=== PATIENT | female | born 1955 | race Caucasian/White ===

== ENCOUNTER 2020-10-20 13:57 | Outpatient (REF) | payer MEDICARE, OTHER, SELFPAY ==
[2020-10-23 16:13] LABS: HPV mRNA E6/E7 rflx Not Detected (Not Detected)
== END 2020-10-20 13:58 | disposition home or self-care (01) ==
LOC: HO.LAB 13:57
PROVIDERS: PCP Internal Medicine; Visit Provider Advanced Practice Midwife
DX: Z01.419 Encounter for gynecological examination (general) (routine) without abnormal findings (principal); Z78.0 Asymptomatic menopausal state
CPT/HCPCS: 87624; 87625; 88142

== ENCOUNTER 2021-08-26 13:07 | Outpatient (REF) | payer MEDICARE, OTHER, SELFPAY ==
--- NOTE | ~2021-08-26 | XR_ITS ---
EXAMINATION: XR ABDOMEN COMPLETE CLINICAL INDICATION: Abdominal pain COMPARISON: CT of December 27, 2018 TECHNIQUE: 2 views of the abdomen. FINDINGS: The bowel gas pattern is normal with no evidence of ileus or obstruction. No unusual soft tissue calcifications are noted. The bones are unremarkable. There is elevation of the right hemidiaphragm. No free intra-abdominal gas identified. No pneumatosis intestinalis. XR/XR abdomen min 2V IMPRESSION: No evidence of ileus or obstruction.
== END 2021-08-26 13:08 | disposition home or self-care (01) ==
LOC: HO.HMGCX 13:07
PROVIDERS: PCP Internal Medicine; Visit Provider Physician Assistant Medical
DX: Z13.89 Encounter for screening for other disorder (principal)
CPT/HCPCS: 74019

== ENCOUNTER 2021-08-26 13:42 | Outpatient (REF) | payer MEDICARE, OTHER, SELFPAY | END 2021-08-26 13:43 | disposition home or self-care (01) | LOC: HO.LNP 13:42 | PROVIDERS: Visit Provider Physician Assistant Medical | DX: R10.9 Unspecified abdominal pain (principal); Z87.19 Personal history of other diseases of the digestive system; Z20.822 Contact with and (suspected) exposure to COVID-19 | CPT/HCPCS: 74019; U0003; U0005 ==

== ENCOUNTER 2021-09-04 07:39 | Outpatient (REF) | payer MEDICARE, OTHER, SELFPAY ==
[2021-09-04 11:07] LABS: MANUAL DIFF FLAG NO
[2021-09-04 11:14] LABS: Basophils Percent Auto 0.6 % (0-2); Eosinophils Absolute Auto 0.1 X10*3/uL (0.0-0.4); Eosinophils Percent Auto 1.7 % (0-4); Hematocrit 46.5 % (37-47); Imm Gran Abs Auto 0.02 X10*3/uL (0.00-0.03); Imm Gran Pct Auto 0.3 % (0.0-0.4); Lymphocytes Absolute Auto 2.3 X10*3/uL (1.2-4.9); Lymphocytes Percent Auto 34.5 % (20-40); Mean Corpuscular HGB Conc 32.3 g/dl (31.0-35.0); Mean Corpuscular Hemoglobin 29.4 pg (27.0-33.0); Mean Corpuscular Volume 91.2 fL (80-98); Mean Platelet Volume 10.7 fL (9.4-12.3); Monocytes Absolute Auto 0.4 X10*3/uL (0.1-1.2); Monocytes Percent Auto 6.5 % (2-11); Neutrophils Absolute Auto 3.7 X10*3/uL (2.0-8.3); Neutrophils Percent Auto 56.4 % (45-73); Platelet Count 149 X10*3/uL (160-400); Red Cell Distribution Width 13.8 % (11.0-16.0); White Blood Count 6.6 X10*3/uL (4.8-10.8)
[2021-09-04 11:27] LABS: Alanine Aminotransferase 83 U/L (0-31); Albumin Level 4.6 g/dL (3.5-5.0); Alkaline Phosphatase 93 U/L (39-117); Anion Gap 13 (12-20); Aspartate Amino Transferase 77 U/L (5-31); Bilirubin Total 0.8 mg/dL (0.0-1.0); Blood Urea Nitrogen 13 mg/dL (9-16); Calcium 9.4 mg/dL (8.4-10.2); Carbon Dioxide 30 mmol/L (22-29); Chloride 99 mmol/L (96-108); Cholesterol 193 mg/dL; Estimated Glomerular Filt Rate > 60; Glucose Random 86 mg/dL (60-115); HDL Cholesterol 41 mg/dL; LDL Cholesterol Calculated 125 mg/dl; Potassium 4.2 mmol/L (3.3-5.1); Sodium 138 mmol/L (135-145); Total Protein 8.5 g/dL (6.5-8.0); Triglycerides 138 mg/dL
[2021-09-04 11:39] LABS: Estimated Average Glucose 117 mg/dL; Hemoglobin A1c % 5.7 %
[2021-09-04 11:48] LABS: Free T4 (Free Thyroxine) 1.08 ng/dL (0.71-1.85); Thyroid Stimulating Hormone 1.81 uIU/mL (0.32-4.0); Vitamin D 25-OH Total 39.3 ng/mL (>30)
[2021-09-06 09:14] LABS: Folate 16.5 ng/mL (> or = 4.0); Vitamin B12 544 pg/mL (200-900)
== END 2021-09-04 07:40 | disposition home or self-care (01) ==
LOC: HO.HMGCLDS 07:39
PROVIDERS: PCP Internal Medicine; Visit Provider Internal Medicine
DX: E03.9 Hypothyroidism, unspecified (principal); I10 Essential (primary) hypertension; R73.02 Impaired glucose tolerance (oral); E78.00 Pure hypercholesterolemia, unspecified
CPT/HCPCS: 36415; 80053; 80061; 82306; 82607; 82746; 83036; 84439; 84443; 85025

== ENCOUNTER 2022-03-03 07:36 | Outpatient (REF) | payer MEDICARE, OTHER, SELFPAY ==
[2022-03-03 11:15] LABS: MANUAL DIFF FLAG NO
[2022-03-03 11:30] LABS: Basophils Percent Auto 0.7 % (0-2); Eosinophils Absolute Auto 0.1 X10*3/uL (0.0-0.4); Eosinophils Percent Auto 1.8 % (0-4); Hematocrit 47.1 % (37.0-47.0); Hemoglobin 15.2 g/dl (12.0-16.0); Imm Gran Abs Auto 0.02 X10*3/uL (0.00-0.03); Imm Gran Pct Auto 0.3 % (0.0-0.4); Lymphocytes Absolute Auto 2.3 X10*3/uL (1.2-4.9); Lymphocytes Percent Auto 37.6 % (20-40); Mean Corpuscular HGB Conc 32.3 g/dl (31.0-35.0); Mean Corpuscular Hemoglobin 29.7 pg (27.0-33.0); Monocytes Absolute Auto 0.4 X10*3/uL (0.1-1.2); Neutrophils Absolute Auto 3.3 x10*3/uL (2.0-8.3); Neutrophils Percent Auto 53.6 % (45-73); Platelet Count 238 X10*3/uL (160-400); Red Blood Count 5.12 X10*6/uL (4.20-5.50); Red Cell Distribution Width 13.5 % (11.0-16.0); White Blood Count 6.1 X10*3/uL (4.8-10.8)
[2022-03-03 11:37] LABS: Alanine Aminotransferase 87 U/L (0-31); Albumin Level 4.4 g/dL (3.5-5.0); Alkaline Phosphatase 91 U/L (39-117); Anion Gap 14 (12-20); Aspartate Amino Transferase 83 U/L (5-31); Bilirubin Total 0.8 mg/dL (0.0-1.0); Blood Urea Nitrogen 13 mg/dL (9-16); Calcium 10.1 mg/dL (8.4-10.2); Carbon Dioxide 30 mmol/L (22-29); Chloride 101 mmol/L (96-108); Cholesterol 204 mg/dL; Estimated Glomerular Filt Rate > 60; Glucose Random 96 mg/dL (60-115); HDL Cholesterol 41 mg/dL; LDL Cholesterol Calculated 133 mg/dl; Potassium 4.5 mmol/L (3.3-5.1); Sodium 140 mmol/L (135-145); Total Protein 8.5 g/dL (6.5-8.0); Triglycerides 151 mg/dL
[2022-03-03 11:55] LABS: Estimated Average Glucose 117 mg/dL; Hemoglobin A1c % 5.7 %
[2022-03-03 12:01] LABS: Thyroid Stimulating Hormone 1.16 uIU/mL (0.32-4.0); Vitamin D 25-OH Total 37.8 ng/mL (>30)
[2022-03-03 12:06] LABS: Folate 17.9 ng/mL (> or = 4.0); Vitamin B12 564 pg/mL (200-900)
== END 2022-03-03 07:37 | disposition home or self-care (01) ==
LOC: HO.HMGCLDS 07:36
PROVIDERS: Visit Provider Internal Medicine
DX: R73.02 Impaired glucose tolerance (oral) (principal); E78.00 Pure hypercholesterolemia, unspecified
CPT/HCPCS: 36415; 80053; 80061; 82306; 82607; 82746; 83036; 84439; 84443; 85025

== ENCOUNTER 2022-06-15 10:46 | Emergency (ER) | payer MEDICARE, OTHER, SELFPAY ==
--- NOTE | ~2022-06-15 | CT_ITS ---
EXAMINATION: CT ABDOMEN AND PELVIS WITHOUT CONTRAST CLINICAL INFORMATION: Left lower quadrant abdominal pain COMPARISON: CT abdomen pelvis 12/27/2018 TECHNIQUE: Multidetector volumetric imaging was performed from the superior aspect of the liver through the pubic symphysis. Sagittal and coronal reformatted images were obtained on the technologist's workstation. This CT examination was performed using dose optimization techniques as appropriate, variously including the following: *Automated exposure control *Adjustment of mA and/or kV according to patient size (this includes techniques or standardized protocols for targeted exams where dose is matched to indication/reason for exam; i.e. extremities or head) *Use of iterative reconstruction technique DLP: 791 mGy-cm FINDINGS: LUNG BASES: The visualized lung bases are unremarkable. Small right anterior preparacardiac lymph nodes are seen. LIVER, GALLBLADDER, AND BILIARY TREE: The liver is normal in size and shape but demonstrates significantly decreased attenuation consistent with hepatic steatosis.. No focal hepatic lesion or biliary ductal dilatation is present. The gallbladder is unremarkable with no evidence of radiopaque gallstones, gallbladder wall thickening, or obvious pericholecystic inflammatory changes. PANCREAS: Unremarkable. SPLEEN: Unremarkable. ADRENAL GLANDS: Unremarkable. KIDNEYS AND URETERS: The kidneys are normal in size, shape, and attenuation. No hydronephrosis, hydroureter, or calculi seen. No perinephric stranding. BLADDER: Unremarkable. GASTROINTESTINAL TRACT: The small and large bowel are unremarkable aside from colonic diverticulosis without diverticulitis. The appendix is short and unremarkable. ABDOMINAL WALL: No significant hernia is appreciated. There is minimal diastases of the rectus muscles just above the umbilicus. LYMPH NODES: No retroperitoneal lymphadenopathy. VASCULAR: Unremarkable. PELVIC VISCERA: Unremarkable. OSSEOUS STRUCTURES: Degenerative changes are present at L5-S1. CT/CT abdomen pelvis wo con IMPRESSION: 1. Hepatic steatosis. 2. Degenerative changes L5-S1 3. Colonic diverticulosis without diverticulitis 4. A cause for the patient's left lower quadrant pain has not been found. Fleischner guidelines were followed.
[2022-06-15 11:51] VITALS: BP 191/99; PULSE 79; RESP 16; TEMP 36.8; O2SAT 97; BMI 37.3
[2022-06-15 12:08] LABS: MANUAL DIFF FLAG NO
[2022-06-15 12:12] LABS: Basophils Percent Auto 0.6 % (0-2); Eosinophils Absolute Auto 0.1 X10*3/uL (0.0-0.4); Eosinophils Percent Auto 1.4 % (0-4); Hematocrit 43.9 % (37.0-47.0); Hemoglobin 14.6 g/dl (12.0-16.0); Imm Gran Abs Auto 0.04 X10*3/uL (0.00-0.03); Imm Gran Pct Auto 0.6 % (0.0-0.4); Lymphocytes Absolute Auto 2.2 X10*3/uL (1.2-4.9); Lymphocytes Percent Auto 34.9 % (20-40); Mean Corpuscular HGB Conc 33.3 g/dl (31.0-35.0); Mean Corpuscular Hemoglobin 30.2 pg (27.0-33.0); Mean Corpuscular Volume 90.9 fL (80.0-98.0); Mean Platelet Volume 9.3 fL (9.4-12.3); Monocytes Absolute Auto 0.5 X10*3/uL (0.1-1.2); Monocytes Percent Auto 7.7 % (2-11); Neutrophils Absolute Auto 3.4 x10*3/uL (2.0-8.3); Neutrophils Percent Auto 54.8 % (45-73); Platelet Count 248 X10*3/uL (160-400); Red Blood Count 4.83 X10*6/uL (4.20-5.50); Red Cell Distribution Width 13.4 % (11.0-16.0); White Blood Count 6.3 X10*3/uL (4.8-10.8)
[2022-06-15 13:50] LABS: Anion Gap 15 (12-20); Blood Urea Nitrogen 10 mg/dL (9-16); Calcium 9.6 mg/dL (8.4-10.2); Carbon Dioxide 25 mmol/L (22-29); Chloride 106 mmol/L (96-108); Creatinine Clr Calc Pharmacy 86.7; Estimated Glomerular Filt Rate > 60; Glucose Random 86 mg/dL (60-115); Potassium 4.3 mmol/L (3.3-5.1); Sodium 142 mmol/L (135-145)
--- NOTE | 2022-06-15 16:38 | ED_ITS ---
HPI - Abdominal Pain General Chief Complaint: Abdominal Pain Stated Complaint: abd pain L side Source: patient Mode of arrival: ambulatory Limitations: no limitations History of Present Illness HPI narrative: 66-year-old female presents with 5 days of left lower quadrant abdominal cramping, change in bowel habits, bloating, belching, intermittent fevers, with an episode of nausea and vomiting. Has a history of diverticulosis and feels that this could be diverticulitis. She has had similar presentations in the past. At this time she does not report fevers or chills, nausea vomiting, abdominal distention, dysuria, hematuria, weakness, lightheadedness, chest pain or pressure, or palpitations. She was evaluated at urgent care earlier today and was referred to the emergency department for suspicion of diverticulitis. MD elicited complaint: abdominal pain Pertinent past history: diverticulitis Onset (ago): day(s) (5) Pain Consistency: constant Location: LLQ and suprapubic Severity: moderate Pain scale (0-10): 6 Quality: cramping and aching Radiation: none Migration to: no migration Exacerbating factors: bowel movement and movement Relieving factors: nothing Context: history of similar episodes Related Data Home Medications Medication Instructions Recorded Confirmed multivitamin,[id number] 1 tab PO DAILY 10/20/20 09/09/21 (Complete Multivitamin tablet) Previous Rx's Medication Instructions Recorded ezetimibe 10 mg tablet 10 mg PO DAILY #90 tabs 08/02/21 levothyroxine 150 mcg tablet 150 mcg PO QAM 90 days #90 tabs 09/20/21 Allergies Allergy/AdvReac Type Severity Reaction Status Date / Time rofecoxib [From VIOXX] Allergy Severe ANAPHYLAXIS Verified 06/15/22 11:50 latex [LATEX] Allergy Mild RASH;ITCHIN Verified 06/15/22 10:04 G acetaminophen Allergy Unknown hives Verified 06/15/22 10:04 [Tylenol-Codeine] codeine [Tylenol-Codeine] Allergy Unknown hives Verified 06/15/22 10:04 ciprofloxacin [From Cipro] AdvReac Intermediate diarrhea Verified 06/15/22 10:04 cyclobenzaprine AdvReac Intermediate TACYCARDIA Verified 06/15/22 10:04 [From FLEXERIL] atorvastatin AdvReac Unknown body aches Verified 06/15/22 10:04 prednisone AdvReac Unknown shaking Verified 06/15/22 10:04 aerosol Allergy Unknown Sneezing, Uncoded 06/15/22 10:04 difficulty breathing Vicodin Allergy Unknown heart Uncoded 06/15/22 10:04 racing Review of Systems Review of Systems Constitutional: No Fever, No Chills ENT/Mouth: No Ear Pain, No Hoarseness, No sore throat Eyes: No Eye Pain, No Swelling, No Redness, No Foreign Body Cardiovascular: No Chest Pain, No SOB Respiratory: No Cough, No Dyspnea Gastrointestinal: Positive Nausea, positive Vomiting, No Diarrhea, positive abdominal Pain Genitourinary: No Dysuria, No Hematuria Musculoskeletal: No joint pain, No Myalgias, No Joint Swelling Skin: No Skin lacerations, No rash Neuro: No Weakness, No Numbness, No Paresthesias, No Loss of Consciousness, No Dizziness, No Headache Psych: No Anxiety/Panic, No Depression Heme/Lymph: no easy bruising, no Lymphadenopathy Endocrine: No Polyuria, No Polydipsia Yes all other systems are reviewed and are negative PMFSH Past Medical History Attestation statement: The following information was validated with the patient. Source: old records reviewed Medical History Adjustment disorder Asthma Fatty liver Fracture of phalanx of index finger Hx of diverticulitis of colon Hypercholesterolemia Hyperlipidemia Hypertension Hypothyroidism Impaired glucose tolerance SCRUGGS (nonalcoholic steatohepatitis) Obesity (BMI 30-39.9) Psoriasis Trigger finger Vitamin D deficiency Surgical History H/O knee surgery H/O rhinoplasty History of appendectomy Hx of tubal ligation Tear of meniscus of left knee Family History Family History Father Kidney failure Mother Bladder cancer Social History Social History Housing: House Alcohol intake: never Patient Tobacco Use Status: Former Tobacco user Tobacco use type: Cigarette Years Smoked: quit 1992 Smoked in Last 30 Days: No e-Cigarette/Vaping Use: Never Used Second Hand Smoke Exposure: No Use of substances other than those prescribed or required for medical reasons: No Advance Directives: No Advance Directives Information Provided: No service: No Current occupational status: retired Cognitive needs: No Hearing needs: No Vision needs: Yes Physical Exam ED Vital Signs: Vital Signs - 24 hr 06/15/22 11:51 06/15/22 16:56 06/15/22 19:18 Temperature 98.2 F 97.8 F 97.9 F Pulse Rate 79 70 68 Respiratory Rate 16 18 16 Blood Pressure 191/99 H 180/77 H 162/77 H Pulse Oximetry 97 97 98 Oxygen Delivery Method Room Air Room Air Room Air BMI result Body Mass Index 37.3 Appearance: Alert. Oriented X3. No acute distress. Eyes: Pupils equal, round and reactive to light. ENT: Pharynx normal. Neck: Normal inspection. Neck supple. CVS: Normal heart rate and rhythm. Pulses normal. Respiratory: No respiratory distress. Breath sounds normal. Abdomen: Soft and left lower quadrant and suprapubic abdominal pain on palpation. No CVA tenderness. No rigidity or distention, negative Cerrato, McBurney, and Rovsing. Skin: Skin warm and dry. Normal skin color. Normal skin turgor. Extremities: No lower extremity edema. Gait well-balanced well coordinated. Neuro: No motor deficit. No sensory deficit. Cranial nerves 2-12 intact Course Course Course Narrative: 66-year-old female presents for evaluation of left lower quadrant abdominal pain for approximately 5 days. She has had an episode of nausea and vomiting and subjective fever. She has not had fever, nausea or vomiting today but the pain is persistent and accompanied with cramping, burping, and a feeling of fullness. She states that she can not get comfortable or sleep. She has had a history of diverticulitis in the past and states that this feels similar to prior presentation. She is ambulatory with a limp because of the left lower quadrant abdominal pain. She has been in the emergency department waiting room since 09:00 this morning, labs were drawn and are unremarkable. Based on patient's physical exam with left lower quadrant and suprapubic tenderness, will order CT scan of abdomen pelvis. Patient agrees to this plan. CT scan of abdomen pelvis negative for acute findings. Will have patient follow-up with her primary care physician. Patient verbalized understanding of and agrees plan of care discharge home. Patient verbalized understanding of signs symptoms indicating need for emergent intervention. MDM - Abdominal Pain Differential Diagnosis Differential diagnosis: Likely abdominal pain, calculus of kidney, constipation and diverticulitis Medical Records Attestation: I reviewed the patient's medical records. Lab Data Attestation: I reviewed the patient's lab results. Result diagrams: 06/15/22 12:01 06/15/22 12:01 Labs: Lab Results 06/15/22 06/15/22 Range/Units 12: 12:01 WBC 6.3 (4.8-10.8) X10*3/uL RBC 4.83 (4.20-5.50) X10*6/uL Hgb 14.6 (12.0-16.0) g/dl Hct 43.9 (37.0-47.0) % MCV 90.9 (80.0-98.0) fL MCH 30.2 (27.0-33.0) pg MCHC 33.3 (31.0-35.0) g/dl RDW 13.4 (11.0-16.0) % Plt Count 248 (160-400) X10*3/uL MPV 9.3 L (9.4-12.3) fL Immature Gran % (Auto) 0.6 H (0.0-0.4) % Neut % (Auto) 54.8 (45-73) % Lymph % (Auto) 34.9 (20-40) % [place] % (Auto) 7.7 (2-11) % Eos % (Auto) 1.4 (0-4) % Baso % (Auto) 0.6 (0-2) % Lymph # (Auto) 2.2 (1.2-4.9) X10*3/uL [place] # (Auto) 0.5 (0.1-1.2) X10*3/uL Eos # (Auto) 0.1 (0.0-0.4) X10*3/uL Baso # (Auto) 0.0 (0.0-0.2) X10*3/uL Abs Immat Gran (auto) 0.04 H (0.00-0.03) X10*3/uL Absolute Neuts (auto) 3.4 (2.0-8.3) x10*3/uL Absolute Nucleated RBC 0.000 (0.0-0.012) X10*3/uL Nucleated RBC % (auto) 0.0 (0.0-0.2) /100WBC Sodium 142 (135-145) mmol/L Potassium 4.3 (3.3-5.1) mmol/L Chloride 106 (96-108) mmol/L Carbon Dioxide 25 (22-29) mmol/L Anion Gap 15 (12-20) BUN 10 (9-16) mg/dL Creatinine 0.77 (0.5-1.4) mg/dL Estim Creat Clear Calc 86.7 Estimated GFR > 60 Random Glucose 86 (60-115) mg/dL Calcium 9.6 (8.4-10.2) mg/dL Imaging Data CT abdomen pelvis: Attestation: I personally reviewed and interpreted this imaging study as follows: Radiologist's impression: EXAMINATION: CT ABDOMEN AND PELVIS WITHOUT CONTRAST? CLINICAL INFORMATION: Left lower quadrant abdominal pain? COMPARISON: CT abdomen pelvis 12/27/2018? TECHNIQUE: Multidetector volumetric imaging was performed from the superior aspect of the liver through the pubic symphysis. Sagittal and coronal reformatted images were obtained on the technologist's workstation.? This CT examination was performed using dose optimization techniques as appropriate, variously including the following: *Automated exposure control *Adjustment of mA and/or kV according to patient size (this includes techniques or standardized protocols for targeted exams where dose is matched to indication/reason for exam; i.e. extremities or head) *Use of iterative reconstruction technique DLP: 791 mGy-cm FINDINGS: LUNG BASES: The visualized lung bases are unremarkable. Small right anterior preparacardiac lymph nodes are seen. LIVER, GALLBLADDER, AND BILIARY TREE: The liver is normal in size and shape but demonstrates significantly decreased attenuation consistent with hepatic steatosis.. No focal hepatic lesion or biliary ductal dilatation is present. The gallbladder is unremarkable with no evidence of radiopaque gallstones, gallbladder wall thickening, or obvious pericholecystic inflammatory changes.? PANCREAS: Unremarkable.? SPLEEN: Unremarkable.? ADRENAL GLANDS: Unremarkable.? KIDNEYS AND URETERS: The kidneys are normal in size, shape, and attenuation. No hydronephrosis, hydroureter, or calculi seen. No perinephric stranding. ? BLADDER: Unremarkable.? GASTROINTESTINAL TRACT: The small and large bowel are unremarkable aside from colonic diverticulosis without diverticulitis. The appendix is short and unremarkable.? ABDOMINAL WALL: No significant hernia is appreciated. There is minimal diastases of the rectus muscles just above the umbilicus. LYMPH NODES: No retroperitoneal lymphadenopathy. VASCULAR: Unremarkable. PELVIC VISCERA: Unremarkable.? OSSEOUS STRUCTURES: Degenerative changes are present at L5-S1.? CT/CT abdomen pelvis wo con IMPRESSION: 1.? Hepatic steatosis. 2.? Degenerative changes L5-S1 3.? Colonic diverticulosis without diverticulitis 4.? A cause for the patient's left lower quadrant pain has not been found. ? Fleischner guidelines were followed Discharge Plan Discharge Clinical Impression: Diverticulosis of colon without diverticulitis, Abdominal pain Patient Disposition: Home, Self-Care Instructions: Diverticulosis (ED) Additional Instructions: You were evaluated for abdominal pain to the left lower quadrant and change in bowel habits. Lab values are within normal limits. CT scan of abdomen and pelvis indicates diverticulosis without indication of infection or perforation. Please follow-up with Gastroenterology. I have referred you to Dr. Carrera. Please call and request an appointment for evaluation. You may require colonoscopy if indicated. For suspected constipation, please take MiraLax on a daily basis. MiraLax can be purchased [id number]. Please follow-up with primary care physician for further evaluation. Drink plenty of fluids. Thank you for choosing this emergency department for evaluation. Please follow-up with primary care physician as needed. Return to the emergency depart ment for any new, concerning, or worsening symptoms. Prescriptions: No Action ezetimibe 10 mg tablet 10 mg PO DAILY Qty: 90 2RF levothyroxine 150 mcg tablet 150 mcg PO QAM 90 Days Qty: 90 2RF Complete Multivitamin Tablet 1 tab PO DAILY Referrals: Jose Carrera [Physician] - 2 weeks (Diverticulosis with history of diverticulitis, change in bowel habits.) Interventions: ED Discharge Assessment Last Done: 06/15/22 19:37 Discharge Date/Time: 06/15/22 19:38
[2022-06-15 16:56] VITALS: BP 180/77; PULSE 70; RESP 18; TEMP 36.6; O2SAT 97
--- NOTE | 2022-06-15 16:58 | PC.NURSE ---
pt a&ox3, vss, pt reports lower abd pain for ~6 days, took a laxative for constipation, abd pain resolved after bowel movement, vomited last night, abd pain returned. pending CT scan results.
[2022-06-15 19:18] VITALS: BP 162/77; PULSE 68; RESP 16; TEMP 36.6; O2SAT 98
== END 2022-06-15 19:38 | disposition home or self-care (01) ==
PROVIDERS: Emergency Provider Internal Medicine; PCP Internal Medicine
DX: K57.30 Diverticulosis of large intestine without perforation or abscess without bleeding (principal); R10.30 Lower abdominal pain, unspecified; Z87.891 Personal history of nicotine dependence; Z79.899 Other long term (current) drug therapy
CPT/HCPCS: 36415; 74176; 80048; 85025; 99284

== ENCOUNTER 2022-09-08 07:03 | Outpatient (REF) | payer MEDICARE, OTHER, SELFPAY ==
[2022-09-08 07:10] LABS: MANUAL DIFF FLAG NO
[2022-09-08 07:24] LABS: Basophils Absolute Auto 0.1 X10*3/uL (0.0-0.2); Basophils Percent Auto 0.9 % (0-2); Eosinophils Absolute Auto 0.1 X10*3/uL (0.0-0.4); Eosinophils Percent Auto 1.9 % (0-4); Hematocrit 44.5 % (37.0-47.0); Hemoglobin 14.5 g/dl (12.0-16.0); Imm Gran Abs Auto 0.02 X10*3/uL (0.00-0.03); Imm Gran Pct Auto 0.3 % (0.0-0.4); Lymphocytes Absolute Auto 2.1 X10*3/uL (1.2-4.9); Lymphocytes Percent Auto 35.8 % (20-40); Mean Corpuscular HGB Conc 32.6 g/dl (31.0-35.0); Mean Corpuscular Hemoglobin 29.8 pg (27.0-33.0); Mean Corpuscular Volume 91.4 fL (80.0-98.0); Mean Platelet Volume 9.3 fL (9.4-12.3); Monocytes Absolute Auto 0.5 X10*3/uL (0.1-1.2); Monocytes Percent Auto 8.5 % (2-11); Neutrophils Percent Auto 52.6 % (45-73); Platelet Count 231 X10*3/uL (160-400); Red Blood Count 4.87 X10*6/uL (4.20-5.50); Red Cell Distribution Width 13.2 % (11.0-16.0); White Blood Count 5.8 X10*3/uL (4.8-10.8)
[2022-09-08 07:33] LABS: Appearance Urine Clear; Color Urine Yellow; Glucose Urine UA Negative (Negative); Leukocyte Esterase Urine Moderate (2+) (Negative); Nitrite Urine Negative (Negative); PH 6.5 (5.0-9.0); UMIC TRIGGER UA YES; Urine Blood Negative (Negative); Urine Ketones Negative (Negative); Urine Protein Negative (Neg-Trace)
[2022-09-08 07:38] LABS: Bacteria Urine None Seen (None Seen); Hyaline Casts Urine 0-2 /LPF (0-2); RBC Urine 0-2 /HPF (0-2)
[2022-09-08 07:42] LABS: Estimated Average Glucose 114 mg/dL; Hemoglobin A1c % 5.6 %
[2022-09-08 07:54] LABS: Alanine Aminotransferase 71 U/L (0-31); Albumin Level 4.5 g/dL (3.5-5.0); Alkaline Phosphatase 94 U/L (39-117); Anion Gap 16 (12-20); Aspartate Amino Transferase 65 U/L (5-31); Bilirubin Total 0.6 mg/dL (0.0-1.0); Blood Urea Nitrogen 11 mg/dL (9-16); Calcium 9.8 mg/dL (8.4-10.2); Carbon Dioxide 30 mmol/L (22-29); Chloride 103 mmol/L (96-108); Cholesterol 207 mg/dL; Estimated Glomerular Filt Rate > 60; Glucose Random 103 mg/dL (60-115); HDL Cholesterol 36 mg/dL; LDL Cholesterol Calculated 142 mg/dl; Potassium 4.6 mmol/L (3.3-5.1); Sodium 144 mmol/L (135-145); Total Protein 7.9 g/dL (6.5-8.0); Triglycerides 146 mg/dL
[2022-09-08 08:14] LABS: Thyroid Stimulating Hormone 0.44 uIU/mL (0.32-4.0); Vitamin D 25-OH Total 37.8 ng/mL (>30)
[2022-09-08 08:25] LABS: Folate 15.4 ng/mL (> or = 4.0); Vitamin B12 530 pg/mL (200-900)
== END 2022-09-08 07:04 | disposition home or self-care (01) ==
LOC: HO.LAB 07:03
PROVIDERS: PCP Internal Medicine; Visit Provider Internal Medicine
DX: E78.00 Pure hypercholesterolemia, unspecified (principal); R73.02 Impaired glucose tolerance (oral)
CPT/HCPCS: 36415; 80053; 80061; 81001; 82306; 82607; 82746; 83036; 84439; 84443; 85025

== ENCOUNTER 2022-09-12 13:24 | Emergency (ER) | payer MEDICARE, OTHER, SELFPAY ==
[2022-09-12 13:40] VITALS: BP 175/85; PULSE 91; RESP 18; TEMP 36.6; O2SAT 98; BMI 37.4
--- NOTE | 2022-09-12 17:18 | ED_ITS ---
HPI - General Adult General Chief complaint: General Medical Stated complaint: Bit by tick/needs it removed Time Seen by Provider: 09/12/22 17:17 Source: patient Mode of arrival: ambulatory Limitations: no limitations History of Present Illness HPI narrative: Patient is a 66 year old assigned female at with a history of HTN presenting to the emergency department today with a tick bite. Patient states that she found a tick on the right side of her back and her partner removed it this evening. Patient states she does not know how long it was there. Patient denies any dizziness, lightheadedness, abdominal pain, nausea, vomiting, fever, chills, blurry vision, double vision, loss of vision, chest pain, difficulty breathing, shortness of breath, back pain, night sweats, pain with urination, in creased urinary frequency, increased urinary urgency, blood in her urine or stool, syncope or a near syncopal episode, recent trauma or falls, bowel incontinence, bladder incontinence, bowel retention, bladder retention, or any other complaints at this time. Onset (ago): unknown Severity: mild Severity scale (1-10): 3 Quality: dull Pain Consistency: constant Relieving factors: none Exacerbating factors: none Associated symptoms: denies other symptoms Treatments prior to arrival: none Related Data Home Medications Medication Instructions Recorded Confirmed multivitamin,[id number] 1 tab PO DAILY 10/20/20 09/09/21 (Complete Multivitamin tablet) Previous Rx's Medication Instructions Recorded ezetimibe 10 mg tablet 10 mg PO DAILY #90 tabs 06/20/22 levothyroxine 150 mcg tablet 150 mcg PO QAM 90 days #90 tabs 06/20/22 doxycycline hyclate 100 mg tablet 100 mg PO BID 21 days #42 tabs 09/12/22 Allergies Allergy/AdvReac Type Severity Reaction Status Date / Time rofecoxib [From VIOXX] Allergy Severe ANAPHYLAXIS Verified 06/15/22 11:50 latex [LATEX] Allergy Mild RASH;ITCHIN Verified 06/15/22 10:04 G acetaminophen Allergy Unknown hives Verified 06/15/22 10:04 [Tylenol-Codeine] codeine [Tylenol-Codeine] Allergy Unknown hives Verified 06/15/22 10:04 ciprofloxacin [From Cipro] AdvReac Intermediate diarrhea Verified 06/15/22 10:04 cyclobenzaprine AdvReac Intermediate TACYCARDIA Verified 06/15/22 10:04 [From FLEXERIL] atorvastatin AdvReac Unknown body aches Verified 06/15/22 10:04 prednisone AdvReac Unknown shaking Verified 06/15/22 10:04 aerosol Allergy Unknown Sneezing, Uncoded 06/15/22 10:04 difficulty breathing Vicodin Allergy Unknown heart Uncoded 06/15/22 10:04 racing Review of Systems Constitutional: Constitutional: Reports no additional constitutional complaints, Denies chills, Denies fever(s) and Denies night sweats Eyes: Eyes: Reports no additional eye complaints, Denies blurry vision, Denies change in vision, Denies diplopia, Denies eye discharge, Denies loss of vision and Denies eye pain ENT: Denies dizziness Cardiovascular: Cardiovascular: Reports no additional cardiovascular complaints, Denies chest pain, Denies lightheadedness, Denies Loss of Consciousness and Denies dyspnea Respiratory: Respiratory: Reports no additional respiratory complaints and Denies dyspnea Gastrointestinal: Gastrointestinal: Reports no additional gastrointestinal complaints, Denies abdominal pain, Denies melena, Denies hematochezia, Denies change in bowel habits and Denies change in stool character Genitourinary: Genitourinary: Denies hematuria, Denies urinary frequency, Denies dysuria, Denies urinary incontinence, Denies urinary hesitancy and Denies urinary urgency Musculoskeletal: Musculoskeletal: Reports no additional musculoskeletal complaints, Denies numbness and Denies tingling Integumentary/Breasts: Comments: tick bite to right side Neurologic: Denies dizziness, Denies loss of vision, Denies numbness and Denies tingling Psychiatric: Psychiatric: Reports no additional psychiatric complaints Endocrine: Endocrine: Reports no additional endocrine complaints Hematologic/Lymphatic: Hematologic/Lymphatic: Reports no additional hematologic/lymphatic complaints Allergic/Immunologic: Allergic/Immunologic: Reports no additional allergic/immunologic complaints [facility] Past Medical History Attestation statement: The following information was validated with the patient. Source: old records reviewed Medical History Adjustment disorder Asthma Fatty liver Fracture of phalanx of index finger Hx of diverticulitis of colon Hypercholesterolemia Hyperlipidemia Hypertension Hypothyroidism Impaired glucose tolerance SCRUGGS (nonalcoholic steatohepatitis) Obesity (BMI 30-39.9) Psoriasis Trigger finger Vitamin D deficiency Surgical History H/O knee surgery H/O rhinoplasty History of appendectomy Hx of tubal ligation Tear of meniscus of left knee Family History Family History Father Kidney failure Mother Bladder cancer Social History Social History Housing: House Alcohol intake: never Patient Tobacco Use Status: Former Tobacco user Tobacco use type: Cigarette Years Smoked: quit 1991 e-Cigarette/Vaping Use: Never Used Second Hand Smoke Exposure: No Advance Directives: No Advance Directives Information Provided: No service: No Current occupational status: retired Cognitive needs: No Hearing needs: No Vision needs: Yes Physical Exam ED Vital Signs: Vital Signs - 24 hr 09/12/22 13:40 Temperature 98 F Pulse Rate 91 Respiratory Rate 18 Blood Pressure 175/85 H Pulse Oximetry 98 Oxygen Delivery Method Room Air BMI result Body Mass Index 37.4 Const General: cooperative, no acute distress, alert and awake Nutritional Appearance: well nourished Orientation/consciousness: patient oriented x3 Limitations: no limitations HENMT Head: Yes normal to inspection and Yes atraumatic Ears: hearing grossly normal bilaterally and external ears normal General nose exam: Normal external nose present, no nasal discharge noted and no epistaxis Face and sinus: Yes normal facial exam, No abrasion and No laceration Mouth: Normal oral and palatal mucosa present, no drooling and no muffled voice Eyes General: appearance normal, both eyes and all related structures Periorbital: periorbital findings normal Eyelids: Yes eyelids normal Conjunctivae: conjunctivae normal Pupils: Equal, round and reactive pupils present EOM: EOMs intact bilaterally Neck Neck: Yes normal visual inspection, Yes full ROM and Yes no lymphadenopathy Chest Chest palpation & inspection: normal inspection of the chest Resp Effort & Inspection: normal respiratory effort and able to speak in complete sentences Auscultation: clear to auscultation bilaterally Cardio Rate: regular rate Rhythm: regular rhythm GI Inspection: Yes normal to inspection Skin Other: target type lesion to the right flank, no retained tick, no active bleeding Neuro General: patient oriented x3 and moves all extremities Cranial nerves: Yes Equal, round and reactive pupils present Cognition (Neuro): normal cognition Motor exam (neuro): 5/5 motor strength present throughout Sensory Exam: Normal double simultaneous stimulation for sensation Coordination: [id number] test normal Extrem General: Yes normal to inspection, Yes full ROM and Yes capillary refill normal Psych Appearance: grossly normal Mental Status: mental status grossly normal Affect: normal affect Attitude: cooperative Thought process: Normal thought process present Thought content: Normal thought content present Insight: Good insight present (Psych) Medical Decision Making MDM Narrative Medical decision making narrative: Patient is a 66year old assigned female at with a history of hypertension presenting to the emergency department today with tick bite. Patient's physical exam showed a target lesion to the right flank where the tick had been, no retained tick. I explained my physical exam findings to the patient. I answered all questions asked by the patient. I stressed the importance of the patient taking her medication as prescribed. I stressed the importance of the patient following up with her primary care provider. I stressed the importance of the patient returning to the emergency department immediately if her symptoms were to worsen or if she were to develop any dizziness, shortness of breath, difficulty breathing, chest pain, blurry vision, loss of vision, nausea, vomiti ng, abdominal pain, fever, chills, back pain, or any other complaints. Patient verbalized agreement and understanding with this treatment plan and discharge. Medical Records Medical records reviewed: Yes I reviewed the patient's medical records. Discharge Plan Discharge Clinical Impression: Tick bite Patient Disposition: Home, Self-Care Instructions: Tick Bite (ED) Additional Instructions: Follow up with your primary care provider. Return to the emergency department immediately if your symptoms worsen or if you develop any dizziness, shortness of breath, difficulty breathing, chest pain, blurry vision, loss of vision, nausea, vomiting, abdominal pain, fever, chills, back pain, or any other complaints. Prescriptions: New doxycycline hyclate 100 mg tablet 100 mg PO BID 21 Days Qty: 42 0RF No Action ezetimibe 10 mg tablet 10 mg PO DAILY Qty: 90 2RF levothyroxine 150 mcg tablet 150 mcg PO QAM 90 Days Qty: 90 2RF Complete Multivitamin Tablet 1 tab PO DAILY Referrals: Po,Ed Pennington MD [Primary Care Provider] - Interventions: ED Discharge Assessment Last Done: 09/12/22 18:06 Discharge Date/Time: 09/12/22 18:07 Print Language: Serbian
== END 2022-09-12 18:07 | disposition home or self-care (01) ==
PROVIDERS: Emergency Provider Student in an Organized Health Care Education/Training Program; PCP Internal Medicine
DX: T63.481A Toxic effect of venom of other arthropod, accidental (unintentional), initial encounter (principal); Y92.9 Unspecified place or not applicable; M54.50 Low back pain, unspecified
CPT/HCPCS: 99282; 99283

== ENCOUNTER → 2022-11-17 13:20 | Outpatient (BNVA) | payer MEDICARE, OTHER, SELFPAY | PROVIDERS: PCP Internal Medicine; Visit Provider Physician Assistant | DX: K57.30 Diverticulosis of large intestine without perforation or abscess without bleeding (principal); R13.10 Dysphagia, unspecified; Z86.010 Personal history of colon polyps; I10 Essential (primary) hypertension | CPT/HCPCS: 99202 ==

== ENCOUNTER 2023-01-11 09:15 | Outpatient (REF) | payer MEDICARE, OTHER, SELFPAY ==
--- NOTE | ~2023-01-11 | FL_ITS ---
EXAMINATION: FL BARIUM SWALLOW CLINICAL INFORMATION: R13.10 - Dysphagia, unspecified. COMPARISON: CT abdomen 06/15/2022 TECHNIQUE: Barium swallow examination is performed using fluoroscopic evaluation in addition to multiple fluoroscopic spot views, including cine images during swallowing. The patient is imaged both upright and prone and using both thick and thin sulfate along with effervescent granules. Barium pill challenge also performed. Fluoroscopy time: 1.5 minutes DAP: 13.9 Gycm2 Images: 35 FINDINGS: Swallowing function is normal and there is no aspiration. The cervical esophagus has no web or diverticulum or stricture. The cervical thoracic junction appears normal. Barium pill rapidly passes from mouth to stomach without delay. The thoracic esophagus shows normal motility with no obstruction, stricture, or ulceration. There is mild physiologic at the esophagogastric junction during the prone Valsalva maneuver. No hiatal hernia. No reflux. A cursory view of the upper abdomen shows no gastric outlet obstruction. FL/FL barium swallow IMPRESSION: -Normal motility. No obstruction or stricture or ulceration. -Physiologic herniation of esophagogastric junction during prone Valsalva maneuver without overt hernia. No reflux.
== END 2023-01-11 09:16 | disposition home or self-care (01) ==
LOC: HO.XRAY 09:15
PROVIDERS: Visit Provider Physician Assistant
DX: R13.10 Dysphagia, unspecified (principal)
CPT/HCPCS: 74220

== ENCOUNTER 2023-03-08 06:37 | Day surgery (SDC) | payer MEDICARE, OTHER, SELFPAY ==
--- NOTE | 2023-03-07 14:24 | HO.ANESPROP2 ---
HPI - Anesthesia Eval Consult details Narrative: 67yo F for Upper Endoscopy and Colonoscopy [facility] Active Problems Active Problems: All Active Problems (Updated 02/07/23 @ 08:47 by ANDREW Coronado) Onychomycosis (Acute) Nasal congestion (Acute) Alopecia (Acute) Dysphagia (Acute) History of colon polyps (Acute) Diverticulosis of colon (Acute) Adult general medical exam (Acute) Colon cancer screening (Acute) Diverticulitis (Acute) Generalized anxiety disorder (Acute) Knee osteoarthritis (Acute) Ear pain (Acute) Hypothyroidism (Acute) Hypercholesterolemia (Acute) Impaired glucose tolerance (Acute) Hypertension (Acute) Obesity (BMI 30-39.9) (Acute) SCRUGGS (nonalcoholic steatohepatitis) (Acute) Otitis media (Acute) Tympanic membrane perforation (Acute) Past Medical History Medical History (Updated 02/07/23 @ 08:47 by ANDREW Coronado) Adjustment disorder Asthma Fatty liver Fracture of phalanx of index finger Hx of diverticulitis of colon Hypercholesterolemia Hyperlipidemia Hypertension Hypothyroidism Impaired glucose tolerance Medicare annual wellness visit, initial SCRUGGS (nonalcoholic steatohepatitis) Obesity (BMI 30-39.9) Onychomycosis Psoriasis Trigger finger Vitamin D deficiency Family History Family History Father Kidney failure Mother Bladder cancer Surgical History Surgical History H/O arthroscopy of right knee H/O knee surgery H/O rhinoplasty History of appendectomy History of colonoscopy Hx of tubal ligation Tear of meniscus of left knee Social History Social History Housing: House Alcohol intake: never Patient Tobacco Use Status: Former Tobacco user Quit Date: 1991 Tobacco use type: Cigarette Years Smoked: quit 1991 e-Cigarette/Vaping Use: Never Used Second Hand Smoke Exposure: No service: No Current occupational status: retired Cognitive needs: No Hearing needs: No Vision needs: Yes Meds Allergies Allergy/AdvReac Type Severity Reaction Status Date / Time rofecoxib [From VIOXX] Allergy Severe ANAPHYLAXIS Verified 03/08/23 07:07 latex [LATEX] Allergy Mild RASH;ITCHIN Verified 03/08/23 07:07 G acetaminophen Allergy Unknown hives Verified 03/08/23 07:07 [Tylenol-Codeine] codeine [Tylenol-Codeine] Allergy Unknown hives Verified 03/08/23 07:07 ciprofloxacin [From Cipro] AdvReac Intermediate diarrhea Verified 03/08/23 07:07 cyclobenzaprine AdvReac Intermediate TACYCARDIA Verified 03/08/23 07:07 [From FLEXERIL] atorvastatin AdvReac Unknown body aches Verified 03/08/23 07:07 prednisone AdvReac Unknown shaking Verified 03/08/23 07:07 aerosol Allergy Unknown Sneezing, Uncoded 03/08/23 07:07 difficulty breathing Vicodin Allergy Unknown heart Uncoded 03/08/23 07:07 racing Home Medications Medication Instructions Recorded Confirmed Last Taken Type multivitamin,[id number] 1 tab PO DAILY 10/20/20 03/08/23 03/01/23 History (Complete Multivitamin tablet) Exam Exam Date and Time: March 07, 2023 5744 Assessment and Plan Assessment Anesthesia Assessment: Chart Reviewed
[2023-03-08 07:08] VITALS: BMI 37.4
[2023-03-08 07:10] VITALS: BP 178/87; PULSE 74; RESP 16; TEMP 36.2; O2SAT 99
--- NOTE | 2023-03-08 07:12 | HO.ANESPROP2 ---
[facility] Active Problems Active Problems: All Active Problems (Updated 02/07/23 @ 08:47 by ANDREW Coronado) Onychomycosis (Acute) Nasal congestion (Acute) Alopecia (Acute) Dysphagia (Acute) History of colon polyps (Acute) Diverticulosis of colon (Acute) Adult general medical exam (Acute) Colon cancer screening (Acute) Diverticulitis (Acute) Generalized anxiety disorder (Acute) Knee osteoarthritis (Acute) Ear pain (Acute) Hypothyroidism (Acute) Hypercholesterolemia (Acute) Impaired glucose tolerance (Acute) Hypertension (Acute) Obesity (BMI 30-39.9) (Acute) SCRUGGS (nonalcoholic steatohepatitis) (Acute) Otitis media (Acute) Tympanic membrane perforation (Acute) Past Medical History Medical History (Updated 02/07/23 @ 08:47 by ANDREW Coronado) Adjustment disorder Asthma Fatty liver Fracture of phalanx of index finger Hx of diverticulitis of colon Hypercholesterolemia Hyperlipidemia Hypertension Hypothyroidism Impaired glucose tolerance Medicare annual wellness visit, initial SCRUGGS (nonalcoholic steatohepatitis) Obesity (BMI 30-39.9) Onychomycosis Psoriasis Trigger finger Vitamin D deficiency Family History Family History Father Kidney failure Mother Bladder cancer Family history of problems with anesthesia: No Surgical History Surgical History H/O arthroscopy of right knee H/O knee surgery H/O rhinoplasty History of appendectomy History of colonoscopy Hx of tubal ligation Tear of meniscus of left knee History of Problems with Anesthesia: No Social History Social History Housing: House Alcohol intake: never Patient Tobacco Use Status: Former Tobacco user Quit Date: 1991 Tobacco use type: Cigarette Years Smoked: quit 1991 Smoked in Last 30 Days: No e-Cigarette/Vaping Use: Never Used Second Hand Smoke Exposure: No Use of substances other than those prescribed or required for medical reasons: No Are you DNR?: No Advance Directives: No Advance Directives Information Provided: Yes service: No Current occupational status: retired Cognitive needs: No Hearing needs: No Vision needs: Yes Meds Allergies Allergy/AdvReac Type Severity Reaction Status Date / Time rofecoxib [From VIOXX] Allergy Severe ANAPHYLAXIS Verified 03/08/23 07:07 latex [LATEX] Allergy Mild RASH;ITCHIN Verified 03/08/23 07:07 G acetaminophen Allergy Unknown hives Verified 03/08/23 07:07 [Tylenol-Codeine] codeine [Tylenol-Codeine] Allergy Unknown hives Verified 03/08/23 07:07 ciprofloxacin [From Cipro] AdvReac Intermediate diarrhea Verified 03/08/23 07:07 cyclobenzaprine AdvReac Intermediate TACYCARDIA Verified 03/08/23 07:07 [From FLEXERIL] atorvastatin AdvReac Unknown body aches Verified 03/08/23 07:07 prednisone AdvReac Unknown shaking Verified 03/08/23 07:07 aerosol Allergy Unknown Sneezing, Uncoded 03/08/23 07:07 difficulty breathing Vicodin Allergy Unknown heart Uncoded 03/08/23 07:07 racing Active Medications: Current Medications Albuterol Sulfate (Albuterol Sulfate (0.083%) 2.5 Mg/3 Ml Vial.Neb) 2.5 mg INHALE ONCE PRN PRN Reason: Shortness of Breath/Wheezing Lactated Ringer's (Lr) 1,000 mls @ 100 mls/hr IVCONT .Q10H [facility] Home Medications Medication Instructions Recorded Confirmed Last Taken Type multivitamin,[id number] 1 tab PO DAILY 10/20/20 03/08/23 03/01/23 History (Complete Multivitamin tablet) Exam Exam Date and Time: March 08, 2023 0712 Height,Weight and Vital Signs: Height 5 ft 6 in Weight 105.233 kg Airway Mallampati Class: II TM Dist: >3cm Neck ROM: Full Denture: Upper Heart: rrr Lungs: cta Assessment and Plan Assessment Anesthesia Assessment: Anesthesia Plan Discussed and Chart Reviewed Final Anesthetic Review Family History of Problems with Anesthesia: No History of Problems with Anesthesia: No NPO: Yes ASA Class: III Final Preanesthetic Review: No Changes in Pt Med Stat, Meds/Allgs Chart Reviewed and Consent Obtained/Reviewed Patient Risk: Intermediate Procedure Risk: Intermediate Anesthetic Plan Anesthetic Plan: MAC: Disposition: Standard PACU
[2023-03-08] MEDS: Lactated Ringers 1,000 ML 100 ML IVCONT (07:30)
--- NOTE | 2023-03-08 08:42 | MHC.SHP ---
Pre-Procedural Eval Section A Date of Service: 03/08/23 Section B Chief Complaint: hypertension,dysphagia,hx colonic polyps,diverticu Relevant Family History (Specify if Yes): No Relevant Social History: None Present Medications: see Short Stay Collaborative assessment Medical History: Significant History (Adjustment disorder Asthma Fatty liver Fracture of phalanx of index finger Hx of diverticulitis of colon Hypercholesterolemia Hyperlipidemia Hypertension Hypothyroidism Impaired glucose tolerance Medicare annual wellness visit, initial SCRUGGS (nonalcoholic steatohepatitis) Obesity (BMI 30-39.9) Onycho) History of Previous Operations: Relevant previous surgery/procedure and date(s) ( H/O arthroscopy of right knee H/O knee surgery H/O rhinoplasty History of appendectomy History of colonoscopy Hx of tubal ligation Tear of meniscus of left knee) Allergies: Allergies Allergy/AdvReac Type Severity Reaction Status Date / Time rofecoxib [From VIOXX] Allergy Severe ANAPHYLAXIS Verified 03/08/23 07:07 latex [LATEX] Allergy Mild RASH;ITCHIN Verified 03/08/23 07:07 G acetaminophen Allergy Unknown hives Verified 03/08/23 07:07 [Tylenol-Codeine] codeine [Tylenol-Codeine] Allergy Unknown hives Verified 03/08/23 07:07 ciprofloxacin [From Cipro] AdvReac Intermediate diarrhea Verified 03/08/23 07:07 cyclobenzaprine AdvReac Intermediate TACYCARDIA Verified 03/08/23 07:07 [From FLEXERIL] atorvastatin AdvReac Unknown body aches Verified 03/08/23 07:07 prednisone AdvReac Unknown shaking Verified 03/08/23 07:07 aerosol Allergy Unknown Sneezing, Uncoded 03/08/23 07:07 difficulty breathing Vicodin Allergy Unknown heart Uncoded 03/08/23 07:07 racing Review of Systems Sugical H&P ROS: Negative: Constitution, Cardiovascular, Respiratory, Neurological, Psychiatric, Hem-Onc, Allergic/Immunologic, Gastrointestinal, Genitourinary, Musculoskeletal, Integumentary, Endocrine and Eyes/Ears/Nose/Throat Exam Surgical H&P Exam: Normal: HEENT, Normal: Heart, Normal: Lungs, Normal: Extremities, Normal: Abdomen, Normal: Skin and Normal: Neurological Plan Diagnosis/Plan: Unchanged I have reviewed the history and physical and performed a pertinent physical examination on my patient. No changes have occurred unless specified. Time Spent With Patient Time: Total time managing care of this patient today ____ minutes.
--- NOTE | 2023-03-08 08:43 | W.PM.OPN ---
Operative Note Operative Note Date of Service: 03/08/23 Narrative: Operative Information Procedure Description: EGD, Colonoscopy Indication: dysphagia, screening Anesthesia: MAC FLEXIBLE TRANSORAL UPPER GASTROINTESTINAL ENDOSCOPY AND COLONOSCOPY PROCEDURE NOTE UPPER ENDOSCOPY Consent: Indications for the procedure and potential complications of bleeding, perforation, reaction to medications and missed diagnosis were discussed with the patient and informed consent was obtained. Instrument: Olympus GIF H 190 J mid size upper endoscope Monitoring: Vital signs and clinical assessment, continuous EKG monitoring, Pulse oximetry, Carbon Dioxide monitoring and blood pressure monitoring were done throughout the procedure. Procedure: The patient was placed in the left lateral decubitis position and pre-procedure medications were administered and a bite block was placed. The endoscope was inserted into the mouth and advanced under direct vision to the third part of duodenum. A careful inspection was made as the upper endoscope was withdrawn including a retroflexed examination of the proximal stomach; Findings and interventions are described below. Findings: Larynx:normal Esophagus: GE junction at 40 cm, diaphragm hiatus at 40 cm, bogginess and erythema at GEJ, bx taken, also from distal and proximal esophagus, balloon dilation done at LES and UES to 20 mm no tears seen Stomach: Marked erythema and edema throughout stomach. Biopsies were obtained. Grade 2 flap valve on retroflexed examination of the cardia. Duodenum: Normal bulb and descending duodenum, bx taken Intervention: Biopsies as noted above COLONOSCOPY Instrument: Olympus variable stiffness pediatric scope 190L Colonoscopy Monitoring: Vital signs and clinical assessment, continuous EKG monitoring, Pulse oximetry, Carbon Dioxide monitoring and blood pressure monitoring were done throughout the procedure. Colon withdrawal time was 15 minutes. Procedure: The patient was placed in the left lateral decubitis position and pre-procedure medications were administered. After a digital rectal examination of the ano-rectum, the video colonoscope was inserted into the rectum and advanced through the colon to the cecum/TI. The colonoscope was slowly withdrawn in a retrograde panoramic fashion and the colon mucosa was carefully examined including a retroflexed view of the rectum. Findings and interventions are described below. Procedure Difficulty:moderate Findings: Terminal Ileum-not inutbated due to looping Cecum:normal Ascending Colon: x2 sessile polyps 7-9 mm, one removed with cold snare and the other with cold forceps Transverse Colon -normal Descending Colon:normal Sigmoid Colon: moderate severe diverticulosis Rectum: Retroflexion with small internal hemorrhoids, grade I, x1 sessile polyp 5-6 mm removed with cold forceps, and 8 mm sessile polyp removed with cold snare Anorectum - normal Colon preparation: [place] Bowel Preparation Scale Right colon; 2 Transverse colon: 1-2 Left colon; 1-2 (0 = Unprepared colon segment with mucosa not seen due to solid stool that cannot be cleared. 1 = Portion of mucosa of the colon segment seen, but other areas of the colon segment not well seen due to staining, residual stool and/or opaque liquid. 2 = Minor amount of residual staining, small fragments of stool and/or opaque liquid, but mucosa of colon segment seen well. 3 = Entire mucosa of colon segment seen well with no residual staining, small fragments of stool or opaque liquid) Impression and Post Procedure Diagnosis: Endoscopy Findings: gastritis esophagitis, Colonoscopy Findings: polyps internal hemorrhoids diverticular disease Plan: Await Pathology results Repeat Colonoscopy in 3 years due to polyps and some areas with fair prep or earlier if clinically indicated High fiber diet leaflet avoid straining at stool, epsom salts and sitz bath, anusol supps or cream if H pylori pos then treat Above findings were reviewed with the patient and relevant handouts were provided if indicated.
[2023-03-08 09:32] VITALS: BP 113/66; PULSE 72; RESP 16; TEMP 36.8; O2SAT 96
[2023-03-08 09:47] VITALS: BP 137/84; PULSE 63; RESP 15; O2SAT 96
[2023-03-08 10:02] VITALS: BP 170/80; PULSE 62; RESP 18; TEMP 36.9; O2SAT 94
== END 2023-03-08 10:43 | disposition home or self-care (01) ==
PROVIDERS: PCP Internal Medicine; Visit Provider Internal Medicine Gastroenterology
PROC: (CPT 45385; principal; 2023-03-08 08:30)
DX: Z12.11 Encounter for screening for malignant neoplasm of colon (principal); Z86.010 Personal history of colon polyps; Z87.19 Personal history of other diseases of the digestive system; D12.2 Benign neoplasm of ascending colon; K62.1 Rectal polyp; K57.30 Diverticulosis of large intestine without perforation or abscess without bleeding; K64.0 First degree hemorrhoids; K75.81 Nonalcoholic steatohepatitis (NASH); R13.10 Dysphagia, unspecified; K29.50 Unspecified chronic gastritis without bleeding; K20.80 Other esophagitis without bleeding; K44.9 Diaphragmatic hernia without obstruction or gangrene; I10 Essential (primary) hypertension; E78.00 Pure hypercholesterolemia, unspecified; J45.909 Unspecified asthma, uncomplicated; E03.9 Hypothyroidism, unspecified; F43.20 Adjustment disorder, unspecified; R73.02 Impaired glucose tolerance (oral); E66.9 Obesity, unspecified; Z79.899 Other long term (current) drug therapy; Z88.1 Allergy status to other antibiotic agents; Z88.8 Allergy status to other drugs, medicaments and biological substances; Z91.040 Latex allergy status; Z87.891 Personal history of nicotine dependence
CPT/HCPCS: 45385; 45380; 43249; 43239; 88305; 88341; 88342; C1726

== ENCOUNTER 2023-03-27 10:53 | Outpatient (REF) | payer MEDICARE, OTHER, SELFPAY ==
[2023-03-27 12:06] LABS: MANUAL DIFF FLAG NO
[2023-03-27 12:49] LABS: Basophils Absolute Auto 0.1 X10*3/uL (0.0-0.2); Basophils Percent Auto 0.7 % (0-2); Eosinophils Absolute Auto 0.1 X10*3/uL (0.0-0.4); Hematocrit 44.3 % (37.0-47.0); Hemoglobin 14.5 g/dl (12.0-16.0); Imm Gran Abs Auto 0.06 X10*3/uL (0.00-0.03); Imm Gran Pct Auto 0.9 % (0.0-0.4); Lymphocytes Absolute Auto 2.3 X10*3/uL (1.2-4.9); Lymphocytes Percent Auto 33.6 % (20-40); Mean Corpuscular HGB Conc 32.7 g/dl (31.0-35.0); Mean Corpuscular Hemoglobin 30.1 pg (27.0-33.0); Mean Corpuscular Volume 91.9 fL (80.0-98.0); Mean Platelet Volume 10.8 fL (9.4-12.3); Monocytes Absolute Auto 0.6 X10*3/uL (0.1-1.2); Monocytes Percent Auto 9.4 % (2-11); Neutrophils Absolute Auto 3.7 x10*3/uL (2.0-8.3); Neutrophils Percent Auto 53.4 % (45-73); Platelet Count 205 X10*3/uL (160-400); Red Blood Count 4.82 X10*6/uL (4.20-5.50); Red Cell Distribution Width 13.5 % (11.0-16.0); White Blood Count 6.8 X10*3/uL (4.8-10.8)
[2023-03-27 13:31] LABS: Iron 119 mcg/dL (30-160); Percent Iron Saturation 34 % (15-50); Total Iron Binding Capacity 353 mcg/dL (228-428); Unsaturated Iron Binding 234 ug/dL
[2023-03-27 13:54] LABS: Folate 16.7 ng/mL (> or = 4.0); Vitamin B12 615 pg/mL (200-900)
[2023-03-31 14:33] LABS: Parietal Cell Antibody 103.4 Unit (<=20.0)
[2023-04-01 17:13] LABS: Intrinsic Factor Antibodies Negative (Negative)
[2023-04-03 15:28] LABS: Gastrin 716 pg/mL (<=100)
== END 2023-03-27 10:54 | disposition home or self-care (01) ==
LOC: HO.LAB 10:53
PROVIDERS: PCP Internal Medicine; Visit Provider Physician Assistant
DX: K29.40 Chronic atrophic gastritis without bleeding (principal); D64.9 Anemia, unspecified; K64.9 Unspecified hemorrhoids; K57.90 Diverticulosis of intestine, part unspecified, without perforation or abscess without bleeding; Z86.010 Personal history of colon polyps
CPT/HCPCS: 36415; 82607; 82746; 82941; 83516; 83540; 85025; 86340; 99212

== ENCOUNTER 2023-03-31 06:32 | Outpatient (REF) | payer MEDICARE, OTHER, SELFPAY ==
[2023-03-31 07:36] LABS: Estimated Average Glucose 114 mg/dL; Hemoglobin A1C 149.6089 umol/L; Hemoglobin A1c % 5.6 %
[2023-03-31 08:05] LABS: Alanine Aminotransferase 69 U/L (0-31); Albumin Level 4.4 g/dL (3.5-5.0); Alkaline Phosphatase 89 U/L (39-117); Anion Gap 11 (12-20); Aspartate Amino Transferase 65 U/L (5-31); Bilirubin Total 0.9 mg/dL (0.0-1.0); Blood Urea Nitrogen 16 mg/dL (9-16); Calcium 9.6 mg/dL (8.4-10.2); Carbon Dioxide 32 mmol/L (22-29); Chloride 104 mmol/L (96-108); Cholesterol 180 mg/dL; Estimated Glomerular Filt Rate > 60; Glucose Random 87 mg/dL (60-115); HDL Cholesterol 36 mg/dL; LDL Cholesterol Calculated 110 mg/dl; Potassium 4.2 mmol/L (3.3-5.1); Sodium 143 mmol/L (135-145); Total Protein 7.7 g/dL (6.5-8.0); Triglycerides 170 mg/dL
[2023-03-31 08:29] LABS: Free T4 (Free Thyroxine) 1.01 ng/dL (0.71-1.85)
== END 2023-03-31 06:33 | disposition home or self-care (01) ==
LOC: HO.LAB 06:32
PROVIDERS: Physician Assistant; PCP Internal Medicine; Visit Provider Internal Medicine
DX: E03.9 Hypothyroidism, unspecified (principal); R73.02 Impaired glucose tolerance (oral); E78.00 Pure hypercholesterolemia, unspecified; A04.8 Other specified bacterial intestinal infections
CPT/HCPCS: 36415; 80053; 80061; 83036; 84439; 84443; 87338

== ENCOUNTER → 2023-04-17 14:44 | Outpatient (BNVA) | payer MEDICARE, OTHER, SELFPAY | PROVIDERS: PCP Internal Medicine; Visit Provider Physician Assistant | DX: K29.40 Chronic atrophic gastritis without bleeding (principal); K57.90 Diverticulosis of intestine, part unspecified, without perforation or abscess without bleeding; E16.4 Increased secretion of gastrin | CPT/HCPCS: 99212 ==

== ENCOUNTER 2023-05-11 08:01 | Outpatient (REF) | payer MEDICARE, OTHER, SELFPAY ==
[2023-05-16 22:43] LABS: Gastrin 287 pg/mL (<=100)
[2023-05-18 20:29] LABS: Chromogranin A 431 ng/mL (ADULTS: <311)
== END 2023-05-11 08:02 | disposition home or self-care (01) ==
LOC: HO.HMGCLDS 08:01
PROVIDERS: PCP Internal Medicine; Visit Provider Physician Assistant
DX: E16.4 Increased secretion of gastrin (principal)
CPT/HCPCS: 36415; 82941; 86316

== ENCOUNTER 2023-05-22 13:47 | Outpatient (AMB) | payer MEDICARE, OTHER, SELFPAY ==
--- NOTE | 2023-05-22 13:57 | MHC.OFFVIS ---
Intake Vital Signs 05/22/23 14:00 Height 5 ft 5 in Weight 232 lb BMI 38.6 BP 148/71 H Blood Pressure Location Lt brachial Position Sitting Pulse 75 Intake Visit Reasons: Follow up Intake Note: Patient follow up for Gastritits. Patient cc: abdominal bloating, burping, and black diarrhea. 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 Accompanied by: Self / Same As Patient Allergies rofecoxib [From VIOXX] Allergy (Severe, Verified 05/23/23 09:33) ANAPHYLAXIS latex [LATEX] Allergy (Mild, Verified 05/23/23 09:33) RASH;ITCHING acetaminophen [Tylenol-Codeine] Allergy (Unknown, Verified 05/23/23 09:33) hives codeine [Tylenol-Codeine] Allergy (Unknown, Verified 05/23/23 09:33) hives ciprofloxacin [From Cipro] Adverse Reaction (Intermediate, Verified 05/23/23 09:33) diarrhea cyclobenzaprine [From FLEXERIL] Adverse Reaction (Intermediate, Verified 05/23/23 09:33) TACYCARDIA lisinopril Adverse Reaction (Intermediate, Verified 05/23/23 10:00) cough atorvastatin Adverse Reaction (Unknown, Verified 05/23/23 09:33) body aches prednisone Adverse Reaction (Unknown, Verified 05/23/23 09:33) shaking aerosol Allergy (Unknown, Uncoded 04/06/23 10:54) Sneezing, difficulty breathing Vicodin Allergy (Unknown, Uncoded 04/06/23 10:54) heart racing HPI HPI Comments History of Present Illness Details A 67-year-old female with elevated gastrin level follows up-after repeat labs-fasting gastrin level off PPI -continue to be elevated. We have followed-withchTheresa Rivers completed item. On 05/18/23 @ 13:10 Venkatesh Dean Wrote To Theresa Weber could be from autoimmune gastritis and not gastrinoma, await the chromogranin, if also high then woudl repeat EGD and get gastric pH--if neg then no further action On 05/18/23 @ 12:45 Theresa Weber Wrote To Venkatesh Dean T-you may recall the 67-year-old woman elevated gastrin level greater than 700 Repeated fasting continues to be elevated greater than 200-off PPI,-please advise-Ralf Malik On 04/06/23 @ 14:19 Theresa Weber Wrote To Theresa Weber Noted thank you Theresa Weber completed item. On 04/06/23 @ 13:26 Geno Shahid Wrote To Theresa Weber I called and let patient know, you want her to do some blood work in 2 weeks make sure she has not taken any PPI.? For a 2 week., The blood work needs to be fasting-thank you very much [facility] Medical History Adjustment disorder Asthma Fatty liver Fracture of phalanx of index finger Hx of diverticulitis of colon Hypercholesterolemia Hyperlipidemia Hypertension Hypothyroidism Impaired glucose tolerance Medicare annual wellness visit, initial SCRUGGS (nonalcoholic steatohepatitis) Obesity (BMI 30-39.9) Onychomycosis Psoriasis Trigger finger Vitamin D deficiency Surgical History H/O arthroscopy of right knee H/O knee surgery H/O rhinoplasty History of appendectomy History of colonoscopy History of esophagogastroduodenoscopy (EGD) Hx of tubal ligation Tear of meniscus of left knee Family History Father Kidney failure Mother Bladder cancer Social History Housing: House Alcohol intake: never Patient Tobacco Use Status: Former Tobacco user Quit Date: 1991 Tobacco use type: Cigarette Years Smoked: quit 1991 e-Cigarette/Vaping Use: Never Used Second Hand Smoke Exposure: No service: No Current occupational status: retired Cognitive needs: No Hearing needs: No Vision needs: Yes Female Reproductive History Menstrual Age of Menarche: 12 Physical Exam Vital Signs: Last Vital Signs Pulse 75 05/22/23 14:00 BP 148/71 H 05/22/23 14:00 BMI result Body Mass Index 38.6 Results Reviewed Results Reviewed: Name:Tati Pimentel Age/Sex: 67/F Attending: Venkatesh Dean MD : 1955 Submitted by: Venkatesh Dean MD Copies to: Ed Macedo MD MR #: [id number] ? Status: DEP SDC Collected: 03/08/23 Location: [facility] Received: 03/08/23 Diagnosis A.? Duodenum, biopsy:? -Duodenal mucosa with predominantly preserved villi and no specific change.? B.? Stomach, biopsy:? -Gastric body mucosa with chronic inactive atrophic gastritis, with gland atrophy, pseudopyloric metaplasia, focal intestinal metaplasia, and linear and focal micronodular neuroendocrine (ECL) cell hyperplasia (see comment). -Gastric antral mucosa with mild chronic inactive gastritis; negative for intestinal metaplasia. -Negative for H. pylori and dysplasia.? C. Gastroesophageal junction, biopsy:? Squamocolumnar mucosa with moderate chronic inflammation; negative for intestinal metaplasia and dysplasia.? D.? Esophagus, distal, biopsy:? -Squamous mucosa with no specific change; no columnar mucosa present.? E.? Esophagus, proximal, biopsy:? -Squamous mucosa with focal mild intraepithelial lymphocytic infiltrate, otherwise no specific change; no columnar mucosa present (see comment).? F.? Colon, ascending, polyps:? -Tubular adenomas, multiple pieces involved; negative for high-grade dysplasia and carcinoma.? G.? Colon, rectal polyps:? -Hyperplastic polyps, two. Comment: (B):? Appearances suggest an autoimmune atrophic gastritis. Clinical correlation is necessary and serologic studies may be helpful. (E):? Appearances are a non-specific reaction pattern in the absence of other histologic findings, but lymphocytic esophagitis is not excluded. Assessment & Plan Assessment & Plan (1) Autoimmune gastritis: Code(s): K29.40 - Chronic atrophic gastritis without bleeding (2) Elevated gastrin level: Comment: Reviewed patient at findings with Dr. Dean, plan of care discussed Anaxkha-sybpqlbs-iiojei EGD Code(s): E16.4 - Increased secretion of gastrin Plan EGD and get gastric pH- Dr. DEAN r/o gastrinoma Orders: Orders EDG - GI Use Only 05/22/23 E16.4 - Increased secretion of gastrin, K29.40 - Chronic atrophic gastritis without bleeding Patient Instructions: Pleasant 67-year-old female elevated gastrin level, autoimmune gastritis, -reviewed lab results-patient agreeable to EGD Discussed procedure, rare risks need for escorted due to anesthesia. Will follow back when Dr. Dean-available for consult-if need. Encouraged to call questions or concerns We appreciate the opportunity assist in the care this pleasant patient Coding Level of Care Code Est Pt Level 4 (11203) Diagnoses Autoimmune gastritis K29.40 Elevated gastrin level E16.4 Time Spent (min) 35
[2023-05-22 14:00] VITALS: BP 148/71; PULSE 75; BMI 38.6
== END 2023-05-22 15:17 | disposition home or self-care (01) ==
PROVIDERS: PCP Internal Medicine; Visit Provider Physician Assistant
DX: K29.40 Chronic atrophic gastritis without bleeding (principal)
CPT/HCPCS: 99214

== ENCOUNTER → 2023-05-22 13:47 | Outpatient (BNVA) | payer MEDICARE, OTHER, SELFPAY | PROVIDERS: PCP Internal Medicine; Visit Provider Physician Assistant | DX: E16.4 Increased secretion of gastrin (principal); K75.81 Nonalcoholic steatohepatitis (NASH) | CPT/HCPCS: 99212 ==

== ENCOUNTER 2023-05-23 09:25 | Outpatient (AMB) | payer MEDICARE, OTHER, SELFPAY ==
[2023-05-23 09:31] VITALS: BP 124/80; PULSE 90; O2SAT 95; BMI 38.7
--- NOTE | 2023-05-23 09:33 | MHC.PC.OV ---
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 Accompanied by: Self / Same As Patient Allergies rofecoxib [From VIOXX] Allergy (Severe, Verified 05/23/23 09:33) ANAPHYLAXIS latex [LATEX] Allergy (Mild, Verified 05/23/23 09:33) RASH;ITCHING acetaminophen [Tylenol-Codeine] Allergy (Unknown, Verified 05/23/23 09:33) hives codeine [Tylenol-Codeine] Allergy (Unknown, Verified 05/23/23 09:33) hives ciprofloxacin [From Cipro] Adverse Reaction (Intermediate, Verified 05/23/23 09:33) diarrhea cyclobenzaprine [From FLEXERIL] Adverse Reaction (Intermediate, Verified 05/23/23 09:33) TACYCARDIA lisinopril Adverse Reaction (Intermediate, Verified 05/23/23 10:00) cough atorvastatin Adverse Reaction (Unknown, Verified 05/23/23 09:33) body aches prednisone Adverse Reaction (Unknown, Verified 05/23/23 09:33) shaking aerosol Allergy (Unknown, Uncoded 04/06/23 10:54) Sneezing, difficulty breathing Vicodin Allergy (Unknown, Uncoded 04/06/23 10:54) heart racing Medication List - Last Reconciled 05/23/23 by Ed Macedo MD docusate sodium (Colace) 200 mg (2 x 100 mg) PO BEDTIME ezetimibe 10 mg PO DAILY levothyroxine 150 mcg PO QAM 90 days methylcellulose (laxative) (Citrucel) 500 mg PO BID multivitamin,[id number] (Complete Multivitamin tablet) 1 tab PO DAILY Tobacco use date assessed: 05/23/23 Fall risk assessment: No Falls in past year Last assessed Fall Risk: 05/23/23 Dental Screening Dental Screen Date: 05/23/23 Did you have a dental visit in the last 12 months?: No Did you have a dental problem in the last 6 months where you did not have access to dental care?: No Was dental information given to patient?: No HPI Hypertension HPI Details 67-year-old obese female with SCRUGGS gastritis hypertension impaired glucose tolerance hypercholesterolemia hypothyroidism and generalized anxiety disorder last seen in 04/06/2023. Decline mammogram normal bone density in 2019 colonoscopy up-to-date February 2023. Review of the notes has been follow-up with Gastroenterology had an elevated gastrin level and planned EGD to get a gastric pH patient has been advised to stop PPI for 2 weeks before getting the blood work for the gastrin. Patient has been taking lisinopril 2.5 mg only as the BP has been low- advised to stop med especially noting cough with lisinopril- monitor and record [facility] Medical History Adjustment disorder Asthma Fatty liver Fracture of phalanx of index finger Hx of diverticulitis of colon Hypercholesterolemia Hyperlipidemia Hypertension Hypothyroidism Impaired glucose tolerance Medicare annual wellness visit, initial SCRUGGS (nonalcoholic steatohepatitis) Obesity (BMI 30-39.9) Onychomycosis Psoriasis Trigger finger Vitamin D deficiency Surgical History H/O arthroscopy of right knee H/O knee surgery H/O rhinoplasty History of appendectomy History of colonoscopy History of esophagogastroduodenoscopy (EGD) Hx of tubal ligation Tear of meniscus of left knee Family History Father Kidney failure Mother Bladder cancer Social History Housing: House Alcohol intake: never Patient Tobacco Use Status: Former Tobacco user Quit Date: 1991 Tobacco use type: Cigarette Years Smoked: quit 1991 e-Cigarette/Vaping Use: Never Used Second Hand Smoke Exposure: No service: No Current occupational status: retired Cognitive needs: No Hearing needs: No Vision needs: Yes Female Reproductive History Menstrual Age of Menarche: 12 Questionnaire PHQ-9 Over the last 2 weeks, how often have you been bothered by any of the following problems? 1. Little interest or pleasure in doing things: several days 2. Feeling down, depressed, or hopeless: not at all 3. Trouble falling or staying asleep, or sleeping too much: not at all 4. Feeling tired or having little energy: not at all 5. Poor appetite or overeating: not at all 6. Feeling bad about yourself - or that you are a failure or have let yourself or your family down: not at all 7. Trouble concentrating on things, such as reading the newspaper or watching television: not at all 8. Moving or speaking so slowly that other people could have noticed. Or the opposite - being so fidgety or restless that you have been moving around a lot more than usual: not at all 9. Thoughts that you would be better off or of hurting yourself in some way: not at all Total score: 1 Depression Screening Interpretation: Negative Source: Developed by Drs. Jose Hendricks, Anika Bain, Beka Casas and colleagues, with an educational walt from [employer]. Thrive Questionnaire Date Thrive assessed: 05/23/23 I am a: Patient What is your living situation today?: I have a steady place to live Within the past 12 months, did the food you bought not last and you didn't have the money to get more?: Never true Within the past 12 months, did you worry whether your food would run out before you got money to buy more?: Never true Do you have trouble paying for medicines?: No Do you have trouble getting transportation to medical appointments?: No Do you have trouble paying your heating and electricity bill?: No Do you have trouble taking care of your child, family member or friend?: No Do you have trouble with day-to-day activities such as bathing, preparing meals, shopping, managing finances, etc.?: No Are you currently unemployed and looking for a job?: No Are you interested in more education?: No Currently or been in a relationship where the following occur: no concerns reported AUDIT C Alcohol Use Questionnaire (AUDIT-C) 1. How often do you have a drink containing alcohol?: Never 3. How often do you have six or more drinks on one occasion?: Never Total Score: 0 SHAWN-7 AMB Questionnaire SHAWN-7 Date SHAWN - 7 assessed: 05/23/23 Feeling nervous, anxious, or on edge: 0 = Not at all Not being able to stop or control worryin = Not at all Worrying too much about different things: 0 = Not at all Trouble relaxin = Not at all Being so restless that it is hard to sit still: 0 = Not at all Becoming easily annoyed or irritable: 0 = Not at all Feeling afraid as if something awful might happen: 0 = Not at all Total SHAWN-7 score (0-4 normal; 5-9 mild; 10-14 moderate; 15-21 severe): 0 Source: Developed by Drs. Jose Hendricks, Anika Bain, Beka Casas and colleagues, with an educational walt from [employer]. Physical exam (Primary Care) Vital Signs: Last Vital Signs Pulse 90 05/23/23 09:31 BP 124/80 05/23/23 09:31 Pulse Ox 95 05/23/23 09:31 Oxygen Delivery Method Room Air 05/23/23 09:31 BMI result Body Mass Index 38.7 Tobacco/Smoking Status: Tobacco use Status Tobacco use date assessed 05/23/23 05/23/23 09:35 Patient Tobacco Use Status Former Tobacco user 05/23/23 09:35 Tobacco use type Cigarette 05/23/23 09:35 e-Cigarette/Vaping Use Never Used 05/23/23 09:35 PHQ-9: PHQ-9 Score PHQ-9: Total score 1 05/23/23 09:35 Depression Screening Interpretation: Negative Thrive Assessment: Date of Thrive Assessment Date Thrive assessed 05/23/23 05/23/23 09:35 Currently or been in a relationship where the following occur: no concerns reported Const General: alert; No acute distress Eyes Conjunctivae: conjunctivae normal Resp Auscultation: clear to auscultation bilaterally Cardio Rate: regular rate Rhythm: regular rhythm GI Inspection: Yes normal to inspection Extrem General: Yes normal to inspection and No edema Assessment and Plan Assessment & Plan (1) Elevated gastrin level: Comment: Repeat gastrin level, fasting-no PPI for 2 weeks Code(s): E16.4 - Increased secretion of gastrin Plan: Patient is being worked up by the Gastroenterology advised to be off PPI for 2 weeks before repeating the gastrin level (2) Generalized anxiety disorder: Comment: decline any referral for counselling 08/2021 Code(s): F41.1 - Generalized anxiety disorder Plan: Stable (3) Hypothyroidism: Code(s): E03.9 - Hypothyroidism, unspecified Qualifiers: Hypothyroidism type: acquired Qualified Code(s): E03.9 - Hypothyroidism, unspecified Plan: Continue with thyroid medication (4) Hypercholesterolemia: Code(s): E78.00 - Pure hypercholesterolemia, unspecified Plan: Avoid fried foods, chicken skin, eggs, butter margarine, pastries and meat. Be it pork or beef they have a lot of cholesterol LDL goal of less than 130 and triglyceride of less than 150 (5) Impaired glucose tolerance: Code(s): R73.02 - Impaired glucose tolerance (oral) Plan: Decrease the amount of carbohydrate intake, pasta, bread, rice and potatoes are all sugar and that is aside from all the sweet stuff, remember that fruits are good but they are Sweet also. (6) Hypertension: Comment: Coronary angiography February 2013 unremarkable Code(s): I10 - Essential (primary) hypertension Qualifiers: Hypertension type: essential hypertension Qualified Code(s): I10 - Essential (primary) hypertension Plan: Continue with blood pressure medication. Decrease salt intake and exercise presently on lisinopril 5 mg once a day but states taking 1/2 tab only as she is getting low BP. also has cough so advised stop lisinopril (7) Obesity (BMI 30-39.9): Code(s): E66.9 - Obesity, unspecified Plan: Diet and exercise (8) SCRUGGS (nonalcoholic steatohepatitis): Code(s): K75.81 - Nonalcoholic steatohepatitis (SCRUGGS) Plan: Low-fat diet and exercise Medications: Discontinued lisinopril Discontinued Reason: Ancillary Entered New Order 5 mg PO DAILY 30 tabs 5RF I10 - Essential (primary) hypertension Coding Level of Care Code Est Pt Level 4 (21909) Diagnoses Elevated gastrin level E16.4 Generalized anxiety disorder F41.1 Hypothyroidism E03.9 Hypothyroidism type: acquired Hypercholesterolemia E78.00 Impaired glucose tolerance R73.02 Hypertension I10 Hypertension type: essential hypertension Obesity (BMI 30-39.9) E66.9 SCRUGGS (nonalcoholic steatohepatitis) K75.81 Additional Codes PHQ-9 - 63376 - PHQ-9 Billing: Y ([id number])
== END 2023-05-23 10:09 | disposition home or self-care (01) ==
PROVIDERS: Visit Provider Internal Medicine
DX: E03.9 Hypothyroidism, unspecified (principal); I10 Essential (primary) hypertension; E66.9 Obesity, unspecified; Z68.38 Body mass index [BMI] 38.0-38.9, adult; E16.4 Increased secretion of gastrin; F41.1 Generalized anxiety disorder; E78.00 Pure hypercholesterolemia, unspecified; R73.02 Impaired glucose tolerance (oral); K75.81 Nonalcoholic steatohepatitis (NASH)
CPT/HCPCS: 99214

== ENCOUNTER 2023-06-08 10:52 | Emergency (ER) | payer MEDICARE, OTHER, SELFPAY ==
--- NOTE | 2023-06-08 11:13 | ED.GENADULT ---
HPI - General Adult General Chief complaint: Skin/Abscess/Foreign Body Stated complaint: itchy rash all over injection on monday Time Seen by Provider: 06/08/23 11:22 Source: patient and RN notes reviewed Mode of arrival: ambulatory Limitations: no limitations History of Present Illness HPI narrative: This is a 67 year old female, with a past medical history of hypothyroidism, hypercholesterolemia, diverticulosis, and knee osteoarthritis, presenting to the emergency department for evaluation of diffuse itchiness x two days. Patient states that two days ago she received cortisone injections into her right knee. She states that ever since she has had diffuse itching throughout her entire body. Denies any new soaps, lotions, medications or foods. Denies history of similar symptoms in the past period. She has received cortisone injections without any difficulty. Denies any fevers, chills, chest pain, shortness of breath, difficulty swallowing, difficulty breathing, abdominal pain, nausea, vomiting or diarrhea. Denies taking any medications at home to treat her current symptoms. No other complaints are concerns at this time. MD complaint: Itchiness Onset (ago): day(s) Relieving factors: none Exacerbating factors: none Associated symptoms: denies other symptoms Treatments prior to arrival: none Related Data Home Medications Medication Instructions Recorded Confirmed multivitamin,ma-[id number]-[id number] 1 tab PO DAILY 10/20/20 05/23/23 (Complete Multivitamin tablet) Previous Rx's Medication Instructions Recorded ezetimibe 10 mg tablet 10 mg PO DAILY #90 tabs 06/20/22 methylcellulose (laxative) 500 mg 500 mg PO BID #60 tabs 11/17/22 tablet (Citrucel) levothyroxine 150 mcg tablet 150 mcg PO QAM 90 days #90 tabs 03/15/23 docusate sodium 100 mg capsule 200 mg PO BEDTIME #60 caps 04/17/23 (Colace) prednisone 20 mg tablet 20 mg PO DAILY 5 days #5 tabs 06/08/23 Allergies Allergy/AdvReac Type Severity Reaction Status Date / Time rofecoxib [From VIOXX] Allergy Severe ANAPHYLAXIS Verified 05/23/23 09:33 latex [LATEX] Allergy Mild RASH;ITCHIN Verified 05/23/23 09:33 G acetaminophen Allergy Unknown hives Verified 05/23/23 09:33 [Tylenol-Codeine] codeine [Tylenol-Codeine] Allergy Unknown hives Verified 05/23/23 09:33 ciprofloxacin [From Cipro] AdvReac Intermediate diarrhea Verified 05/23/23 09:33 cyclobenzaprine AdvReac Intermediate TACYCARDIA Verified 05/23/23 09:33 [From FLEXERIL] lisinopril AdvReac Intermediate cough Verified 05/23/23 10:00 atorvastatin AdvReac Unknown body aches Verified 05/23/23 09:33 prednisone AdvReac Unknown shaking Verified 05/23/23 09:33 aerosol Allergy Unknown Sneezing, Uncoded 04/06/23 10:54 difficulty breathing Vicodin Allergy Unknown heart Uncoded 04/06/23 10:54 racing Review of Systems Review of Systems: Yes all other systems are reviewed and are negative Constitutional: Constitutional: Reports as per [facility] Past Medical History Medical History Adjustment disorder Asthma Fatty liver Fracture of phalanx of index finger Hx of diverticulitis of colon Hypercholesterolemia Hyperlipidemia Hypertension Hypothyroidism Impaired glucose tolerance Medicare annual wellness visit, initial SCRUGGS (nonalcoholic steatohepatitis) Obesity (BMI 30-39.9) Onychomycosis Psoriasis Trigger finger Vitamin D deficiency Surgical History H/O arthroscopy of right knee H/O knee surgery H/O rhinoplasty History of appendectomy History of colonoscopy History of esophagogastroduodenoscopy (EGD) Hx of tubal ligation Tear of meniscus of left knee Family History Family History Father Kidney failure Mother Bladder cancer Social History Social History Housing: House Alcohol intake: never Patient Tobacco Use Status: Former Tobacco user Quit Date: 1991 Tobacco use type: Cigarette Years Smoked: quit 1991 e-Cigarette/Vaping Use: Never Used Second Hand Smoke Exposure: No Advance Directives: No service: No Current occupational status: retired Cognitive needs: No Hearing needs: No Vision needs: Yes Physical Exam ED Vital Signs: Vital Signs - 24 hr 06/08/23 11:16 Temperature 97.8 F Pulse Rate 76 Respiratory Rate 18 Blood Pressure 175/81 H Pulse Oximetry 97 Oxygen Delivery Method Room Air BMI result Body Mass Index 37.4 Const General: cooperative, comfortable and no acute distress Orientation/consciousness: patient oriented x3 Limitations: no limitations HENMT Other: No tonsillar erythema, edema, airway patent. Head: Yes normal to inspection, Yes normocephalic and Yes atraumatic Ears: hearing grossly normal bilaterally General nose exam: Normal external nose present Face and sinus: Yes normal facial exam Mouth: Normal oral and palatal mucosa present, oropharynx normal and moist mucous membranes Throat: Yes posterior oropharynx normal Eyes General: appearance normal, both eyes and all related structures Eyelids: Yes eyelids normal Conjunctivae: conjunctivae normal Sclerae: sclerae normal Pupils: Equal, round and reactive pupils present EOM: EOMs intact bilaterally Neck Neck: Yes normal visual inspection, Yes full ROM and Yes no lymphadenopathy Lymphatic: no lymphadenopathy noted Chest Chest palpation & inspection: normal inspection of the chest Resp Effort & Inspection: normal respiratory effort and able to speak in complete sentences Auscultation: clear to auscultation bilaterally, no crackles, no rales, no rhonchi and no wheezes Cardio Rate: regular rate Rhythm: regular rhythm Heart sounds: S1 normal heart sound present and S2 normal heart sound present GI Inspection: Yes normal to inspection Skin Other: No rashes, erythema, warmth noted to entire body. No jaundice. General skin exam: no rashes or lesions noted Trauma: no lacerations or abrasions Wounds: no wounds Neuro General: patient oriented x3 and moves all extremities Cranial nerves: Yes Equal, round and reactive pupils present Extrem General: Yes normal to inspection Right upper extremity: normal to inspection Left upper extremity: normal to inspection Right lower extremity: normal to inspection Left lower extremity: normal to inspection Medical Decision Making Medical Decision Making MDM Narrative: 67 year old female presenting to the emergency department for evaluation of diffuse itching x ?two days after receiving cortisone injections. On arrival, patient mildly hypertensive at 175 / 81, all other vital signs within normal limits. No chest pain, headaches, dizziness. No rash seen throughout entire body, Airway is patent, the skin is not jaundiced, patient is not itching throughout entire encounter. No wheezing, Lungs CTAB. Airway patent, no pharyngeal erythema or tongue swelling. I discussed with patient that it was unclear what is causing her to have itchiness but given normal exam, stable vitals, patient not complaining of any pain, appearing non-toxic, will treat with course of prednisone. States she has tolerated prednisone before without difficulty. Given strict return precautions if any new or worsening symptoms occur. Patient understands degrees with plan. Patient stable for discharge. Differential Diagnosis Differential Diagnoses: The differential diagnosis associated with the presentation includes Contact dermatitis, allergic dermatitis, atopic dermatitis, cellulitis, anaphylaxis - unlikely Admission/Observation Consideration of admission/observation: Escalation of care including admission/observation considered Patient would have been admitted to the hospital had her work up had any findings where hospital admission was appropriate and her clinical presentation warranted hospital admission. Discharge Plan Discharge Clinical Impression: Allergic dermatitis Patient Disposition: Home, Self-Care Instructions: Contact Dermatitis (ED), General Allergic Reaction (ED) Additional Instructions: It is unclear what is causing you to have itchiness throughout your body. Take prescribed prednisone as directed for the next 5 days. Please use gentle soaps, lotions, and detergents. Continue taking benadryl as directed as needed for symptoms. If you develop any new or worsening symptoms, including but not limited to difficulty swallowing, chest pain, or shortness of breath, please return immediately for re-evaluation. Follow-up with your primary care physician. Prescriptions: New prednisone 20 mg tablet 20 mg PO DAILY 5 Days Qty: 5 0RF No Action ezetimibe 10 mg tablet 10 mg PO DAILY Qty: 90 2RF levothyroxine 150 mcg tablet 150 mcg PO QAM 90 Days Qty: 90 2RF Complete Multivitamin Tablet 1 tab PO DAILY Citrucel 500 mg tablet 500 mg PO BID Qty: 60 5RF docusate sodium [Colace] 100 mg capsule 200 mg PO BEDTIME Qty: 60 5RF Interventions: ED Discharge Assessment Last Done: 06/08/23 11:37 Discharge Date/Time: 06/08/23 11:38
[2023-06-08 11:16] VITALS: BP 175/81; PULSE 76; RESP 18; TEMP 36.6; O2SAT 97; BMI 37.4
== END 2023-06-08 11:38 | disposition home or self-care (01) ==
PROVIDERS: Emergency Provider Emergency Medicine Emergency Medical Services; PCP Internal Medicine
DX: L23.9 Allergic contact dermatitis, unspecified cause (principal)
CPT/HCPCS: 99282; 99283

== ENCOUNTER 2023-08-18 10:35 | Outpatient (AMB) | payer MEDICARE, OTHER, SELFPAY ==
--- NOTE | 2023-08-18 11:05 | MHC.OFFVIS ---
Intake Vital Signs 08/18/23 11:06 Height 5 ft 6 in Weight 233 lb 11.04 oz BMI 37.7 BP 162/84 H Blood Pressure Location Lt brachial Position Sitting Pulse 76 Intake Visit Reasons: Autoimmune gastritis per Tashia Weber Intake Note: Tati presents in the office as a 2nd opinion for gastritis. CC: Allergies rofecoxib [From VIOXX] Allergy (Severe, Verified 08/18/23 11:08) ANAPHYLAXIS latex [LATEX] Allergy (Mild, Verified 08/18/23 11:08) RASH;ITCHING acetaminophen [Tylenol-Codeine] Allergy (Unknown, Verified 08/18/23 11:08) hives codeine [Tylenol-Codeine] Allergy (Unknown, Verified 08/18/23 11:08) hives ciprofloxacin [From Cipro] Adverse Reaction (Intermediate, Verified 08/18/23 11:08) diarrhea cyclobenzaprine [From FLEXERIL] Adverse Reaction (Intermediate, Verified 08/18/23 11:08) TACYCARDIA lisinopril Adverse Reaction (Intermediate, Verified 08/18/23 11:08) cough atorvastatin Adverse Reaction (Unknown, Verified 08/18/23 11:08) body aches prednisone Adverse Reaction (Unknown, Verified 08/18/23 11:08) shaking aerosol Allergy (Unknown, Uncoded 08/18/23 11:08) Sneezing, difficulty breathing Vicodin Allergy (Unknown, Uncoded 08/18/23 11:08) heart racing HPI Autoimmune gastritis per Tashia Weber HPI Details 67 yr old f here for f/u She has AIG with atrophy on bx from EGD 02/2023 (doen for dysphagia) possible lymphocytic esophagitis as well high chromogranin raised anti parietal Ab raised gastrin, mild H pyloir stool Ag--neg --off PPI for 2 weeks INTERIM: no symptoms' no reflux no abdominal pain appetite is good no weight loss no dysphagia no dysphagia since balloon dilation not back on PPI EXAM: GENERAL: The patient is well developed and nontoxic. VITAL SIGNS:see workflow HEENT: Nonicteric sclerae, PERRLA, EOMI. Oropharynx clear. Moist mucous membranes. Conjunctivae appear well perfused. No thyroid mass. CHEST: Chest wall is nontender. HEART: Regular rate and rhythm without murmurs. LUNGS: Clear to auscultation bilaterally. ABDOMEN: Soft, positive bowel sounds, nontender, no organomegaly.no flank tenderness SKIN: No rash, no excessive bruising, petechiae, or purpura. NEUROLOGIC: Cranial nerves II-XII intact without motor/sensory deficit. A/P: 1/ Autoimmune gastritis, prob type II, has some IM on last bx, h Pylori neg 2/ lymphocytic esophagitis PLAN: 1/ EGD for gastric mapping and gastric pH 2/ recheck labs and pepsinogen level 3/ multivitamin daily 4/ avoid ppi for the moment [facility] History Onychomycosis Medicare annual wellness visit, initial Fracture of phalanx of index finger Adjustment disorder Impaired glucose tolerance Vitamin D deficiency Hypertension Asthma Obesity (BMI 30-39.9) SCRUGGS (nonalcoholic steatohepatitis) Hypercholesterolemia Hx of diverticulitis of colon Fatty liver Hyperlipidemia Psoriasis Hypothyroidism Trigger finger Surgical History History of esophagogastroduodenoscopy (EGD) History of colonoscopy H/O arthroscopy of right knee Tear of meniscus of left knee H/O knee surgery H/O rhinoplasty Hx of tubal ligation History of appendectomy Family History Father Kidney failure Mother Bladder cancer Social History Housing: House Alcohol intake: never Patient Tobacco Use Status: Former Tobacco user Quit Date: 1991 Tobacco use type: Cigarette Years Smoked: quit 1991 e-Cigarette/Vaping Use: Never Used Second Hand Smoke Exposure: No service: No Current occupational status: retired Cognitive needs: No Hearing needs: No Vision needs: Yes Female Reproductive History Menstrual Age of Menarche: 12 Physical Exam Vital Signs: Last Vital Signs Pulse 76 08/18/23 11:06 BP 162/84 H 08/18/23 11:06 BMI result Body Mass Index 37.7 Assessment & Plan Assessment & Plan (1) Autoimmune gastritis: Code(s): K29.40 - Chronic atrophic gastritis without bleeding (2) Elevated gastrin level: Comment: Reviewed patient at findings with Dr. Rico, plan of care discussed Gncpuqt-cycoiacp-rxqwxl EGD Code(s): E16.4 - Increased secretion of gastrin Orders: Orders Complete Blood Count Auto Diff Today E16.4 - Increased secretion of gastrin, K29.40 - Chronic atrophic gastritis without bleeding Comprehensive Met. Panel Today E16.4 - Increased secretion of gastrin, K29.40 - Chronic atrophic gastritis without bleeding, K75.81 - Nonalcoholic steatohepatitis (SCRUGGS) Vitamin B1 Today E16.4 - Increased secretion of gastrin, K29.40 - Chronic atrophic gastritis without bleeding Vitamin B3 (Niacin) Today E16.4 - Increased secretion of gastrin, K29.40 - Chronic atrophic gastritis without bleeding Vitamin B5 (Pantothenic Acid) Today E16.4 - Increased secretion of gastrin, K29.40 - Chronic atrophic gastritis without bleeding Vitamin B6 Today E16.4 - Increased secretion of gastrin, K29.40 - Chronic atrophic gastritis without bleeding Other Ref Test - Misc Today E16.4 - Increased secretion of gastrin, K29.40 - Chronic atrophic gastritis without bleeding Gastrin Today K29.40 - Chronic atrophic gastritis without bleeding Vitamin B12 and Folate Today E16.4 - Increased secretion of gastrin, K29.40 - Chronic atrophic gastritis without bleeding Vitamin D 25-OH Total Today E16.4 - Increased secretion of gastrin, K29.40 - Chronic atrophic gastritis without bleeding Medications: Discontinued prednisone Discontinued Reason: Patient no longer taking 20 mg PO DAILY 5 days 5 tabs 0RF Coding Level of Care Code Est Pt Level 4 (59487) Diagnoses Autoimmune gastritis K29.40 Elevated gastrin level E16.4
[2023-08-18 11:06] VITALS: BP 162/84; PULSE 76; BMI 37.7
== END 2023-08-18 12:41 | disposition home or self-care (01) ==
PROVIDERS: PCP Internal Medicine; Visit Provider Internal Medicine Gastroenterology
DX: K29.40 Chronic atrophic gastritis without bleeding (principal); E16.4 Increased secretion of gastrin
CPT/HCPCS: 99214

== ENCOUNTER → 2023-08-18 10:35 | Outpatient (BNVA) | payer MEDICARE, OTHER, SELFPAY | PROVIDERS: PCP Internal Medicine; Visit Provider Internal Medicine Gastroenterology | DX: K29.40 Chronic atrophic gastritis without bleeding (principal); E16.4 Increased secretion of gastrin | CPT/HCPCS: 99212 ==

== ENCOUNTER 2023-08-30 08:18 | Outpatient (AMB) | payer MEDICARE, OTHER, SELFPAY ==
[2023-08-30 08:20] VITALS: BP 142/80; PULSE 89; O2SAT 98; BMI 37.4
--- NOTE | 2023-08-30 08:20 | MHC.PC.OV ---
Vital Signs 08/30/23 08:20 Height 5 ft 6 in Weight 232 lb BMI 37.4 BP 142/80 H Blood Pressure Location Lt brachial Position Sitting Pulse 89 Pulse Source Pulse Oximeter Pulse Oximetry (%) 98 Oxygen Delivery Method Room Air Intake Visit Reasons: Hypertension Allergies rofecoxib [From VIOXX] Allergy (Severe, Verified 08/30/23 08:21) ANAPHYLAXIS latex [LATEX] Allergy (Mild, Verified 08/30/23 08:21) RASH;ITCHING acetaminophen [Tylenol-Codeine] Allergy (Unknown, Verified 08/30/23 08:21) hives codeine [Tylenol-Codeine] Allergy (Unknown, Verified 08/30/23 08:21) hives ciprofloxacin [From Cipro] Adverse Reaction (Intermediate, Verified 08/30/23 08:21) diarrhea cyclobenzaprine [From FLEXERIL] Adverse Reaction (Intermediate, Verified 08/30/23 08:21) TACYCARDIA lisinopril Adverse Reaction (Intermediate, Verified 08/30/23 08:21) cough atorvastatin Adverse Reaction (Unknown, Verified 08/30/23 08:21) body aches prednisone Adverse Reaction (Unknown, Verified 08/30/23 08:21) shaking aerosol Allergy (Unknown, Uncoded 08/30/23 08:21) Sneezing, difficulty breathing Vicodin Allergy (Unknown, Uncoded 08/30/23 08:21) heart racing Medication List - Last Reconciled 08/30/23 by Ed Macedo MD [activia yogurt PO] ezetimibe 10 mg PO DAILY levothyroxine 150 mcg PO QAM 90 days methylcellulose (laxative) (Citrucel) 500 mg PO BID multivitamin,cs-vghr-cvyzezhd (Complete Multivitamin tablet) 1 tab PO DAILY Tobacco use date assessed: 05/23/23 Fall risk assessment: No Falls in past year Last assessed Fall Risk: 08/30/23 Dental Screening Dental Screen Date: 08/30/23 Did you have a dental visit in the last 12 months?: No Did you have a dental problem in the last 6 months where you did not have access to dental care?: No Was dental information given to patient?: No HPI Hypertension HPI Details 67-year-old obese female with fatty liver hypertension impaired glucose tolerance hypercholesterolemia hypothyroidism generalized anxiety disorder and GERD last seen in May 2023. Patient is here for follow-up. Colonoscopy is up-to-date declined mammogram. Review of the notes patient follows up with Gastroenterology due to autoimmune gastritis EGD done in February 2023 patient needs an a repeat EGD. ER visit May 2020 had injections in the right knee developed diffuse itchiness patient was given 5 day prednisone. BP is good at home has been monitoring for 3 months already. Patient also has seen Dermatology for scalp rash and was given shampoo that increased her rash and so has stop this. Did not like dermatology as she said did not even talk to her. Her bowel movements have been not diarrhea but soft does have Citrucel and taking Activia. Advised to change in activity at 2 probiotic and eat prunes for the fiber patient will be seeing Gastroenterology in [facility] Medical History Onychomycosis Medicare annual wellness visit, initial Fracture of phalanx of index finger Adjustment disorder Impaired glucose tolerance Vitamin D deficiency Hypertension Asthma Obesity (BMI 30-39.9) SCRUGGS (nonalcoholic steatohepatitis) Hypercholesterolemia Hx of diverticulitis of colon Fatty liver Hyperlipidemia Psoriasis Hypothyroidism Trigger finger Surgical History History of esophagogastroduodenoscopy (EGD) History of colonoscopy H/O arthroscopy of right knee Tear of meniscus of left knee H/O knee surgery H/O rhinoplasty Hx of tubal ligation History of appendectomy Family History Father Kidney failure Mother Bladder cancer Social History Housing: House Alcohol intake: never Patient Tobacco Use Status: Former Tobacco user Quit Date: 1991 Tobacco use type: Cigarette Years Smoked: quit 1991 e-Cigarette/Vaping Use: Never Used Second Hand Smoke Exposure: No service: No Current occupational status: retired Cognitive needs: No Hearing needs: No Vision needs: Yes Female Reproductive History Menstrual Age of Menarche: 12 Questionnaire PHQ-9 Over the last 2 weeks, how often have you been bothered by any of the following problems? 1. Little interest or pleasure in doing things: several days 2. Feeling down, depressed, or hopeless: not at all 3. Trouble falling or staying asleep, or sleeping too much: not at all 4. Feeling tired or having little energy: not at all 5. Poor appetite or overeating: not at all 6. Feeling bad about yourself - or that you are a failure or have let yourself or your family down: not at all 7. Trouble concentrating on things, such as reading the newspaper or watching television: not at all 8. Moving or speaking so slowly that other people could have noticed. Or the opposite - being so fidgety or restless that you have been moving around a lot more than usual: not at all 9. Thoughts that you would be better off or of hurting yourself in some way: not at all Total score: 1 Depression Screening Interpretation: Negative Depression Screening Done: Yes Source: Developed by Drs. Jose Hendricks, Anika Bain, Beka Casas and colleagues, with an educational walt from [employer]. Thrive Questionnaire Date Thrive assessed: 05/23/23 AUDIT C Alcohol Use Questionnaire (AUDIT-C) 1. How often do you have a drink containing alcohol?: Never 3. How often do you have six or more drinks on one occasion?: Never Total Score: 0 SHAWN-7 AMB Questionnaire SHAWN-7 Date SHAWN - 7 assessed: 05/23/23 Source: Developed by Drs. Jose Hendricks, Anika Bain, Beka Casas and colleagues, with an educational walt from [employer]. Physical exam (Primary Care) Vital Signs: Last Vital Signs Pulse 89 08/30/23 08:20 BP 142/80 H 08/30/23 08:20 Pulse Ox 98 08/30/23 08:20 Oxygen Delivery Method Room Air 08/30/23 08:20 BMI result Body Mass Index 37.4 Tobacco/Smoking Status: Tobacco use Status Tobacco use date assessed 05/23/23 08/30/23 08:24 Patient Tobacco Use Status Former Tobacco user 08/30/23 08:24 Tobacco use type Cigarette 08/30/23 08:24 e-Cigarette/Vaping Use Never Used 08/30/23 08:24 PHQ-9: PHQ-9 Score PHQ-9: Total score 1 08/30/23 08:24 Depression Screening Interpretation: Negative Thrive Assessment: Date of Thrive Assessment Date Thrive assessed 05/23/23 08/30/23 08:24 Const General: alert; No acute distress Eyes Conjunctivae: conjunctivae normal Resp Auscultation: clear to auscultation bilaterally Cardio Rate: regular rate Rhythm: regular rhythm GI Inspection: Yes normal to inspection Extrem General: Yes normal to inspection and No edema Office Procedures Flu Questionnaire Does the patient have a severe egg allergy?: No Does the patient have severe life threatening allergies?: No Does the patient have a fever or illness today?: No Has the patient ever had Guillain-[place] Syndrome?: No Has the patient ever had any past reaction to a flu shot?: No Immunizations flu vacc [id number] 6mos up(PF) 60 mcg(15 mcgx4)/0.5 mL IM syringe Performing Provider: Ed Macedo MD [facility] Documented (not given) by: Winsome Stratton CMA on 08/30/23 08:24 Reason Not Given: Patient Refused Assessment and Plan Assessment & Plan (1) Obesity (BMI 30-39.9): Code(s): E66.9 - Obesity, unspecified Plan: Diet and exercise (2) SCRUGGS (nonalcoholic steatohepatitis): Code(s): K75.81 - Nonalcoholic steatohepatitis (SCRUGGS) Plan: Low-fat diet (3) Impaired glucose tolerance: Code(s): R73.02 - Impaired glucose tolerance (oral) Plan: Decrease the amount of carbohydrate intake, pasta, bread, rice and potatoes are all sugar and that is aside from all the sweet stuff, remember that fruits are good but they are Sweet also. (4) Hypercholesterolemia: Code(s): E78.00 - Pure hypercholesterolemia, unspecified Plan: Avoid fried foods, chicken skin, eggs, butter margarine, pastries and meat. Be it pork or beef they have a lot of cholesterol LDL goal of less than 130 and triglyceride of less than 150. Patient had myalgia on atorvastatin now on Zetia (5) Hypothyroidism: Code(s): E03.9 - Hypothyroidism, unspecified Qualifiers: Hypothyroidism type: acquired Qualified Code(s): E03.9 - Hypothyroidism, unspecified Plan: Continue with thyroid Medicaid (6) Generalized anxiety disorder: Comment: decline any referral for counselling 08/2021 Code(s): F41.1 - Generalized anxiety disorder Plan: Stable (7) Autoimmune gastritis: Code(s): K29.40 - Chronic atrophic gastritis without bleeding Plan: Patient continues to follow-up with Gastroenterology and is planned for EGD repeat holding off from PPI (8) White coat syndrome with diagnosis of hypertension: Code(s): I10 - Essential (primary) hypertension Orders: Orders Thyroid Stimulating Hormone 1 Month E03.9 - Hypothyroidism, unspecified Free T4 (Free Thyroxine) 1 Month E03.9 - Hypothyroidism, unspecified Complete Blood Count Auto Diff 1 Month E78.00 - Pure hypercholesterolemia, unspecified Vitamin B12 and Folate 1 Month E78.00 - Pure hypercholesterolemia, unspecified Influenza [id number] Immunization Today Z23 - Encounter for immunization Comprehensive Met. Panel 1 Month E78.00 - Pure hypercholesterolemia, unspecified Lipid Panel 1 Month E78.00 - Pure hypercholesterolemia, unspecified Vitamin D 25-OH Total 1 Month E78.00 - Pure hypercholesterolemia, unspecified Coding Level of Care Code Est Pt Level 4 (87521) Diagnoses Obesity (BMI 30-39.9) E66.9 SCRUGGS (nonalcoholic steatohepatitis) K75.81 Impaired glucose tolerance R73.02 Hypercholesterolemia E78.00 Acquired hypothyroidism E03.9 Hypothyroidism type: acquired Generalized anxiety disorder F41.1 Autoimmune gastritis K29.40 White coat syndrome with diagnosis of hypertension I10 Additional Codes PHQ-9 - 62837 - PHQ-9 Billing: ([id number])
== END 2023-08-30 08:57 | disposition home or self-care (01) ==
PROVIDERS: PCP Internal Medicine; Visit Provider Internal Medicine
DX: R73.02 Impaired glucose tolerance (oral) (principal); E66.9 Obesity, unspecified; K75.81 Nonalcoholic steatohepatitis (NASH); Z68.37 Body mass index [BMI] 37.0-37.9, adult; E78.00 Pure hypercholesterolemia, unspecified; Z23 Encounter for immunization; E03.9 Hypothyroidism, unspecified; F41.1 Generalized anxiety disorder; K29.40 Chronic atrophic gastritis without bleeding; I10 Essential (primary) hypertension
CPT/HCPCS: 99214

== ENCOUNTER 2023-09-21 07:16 | Outpatient (REF) | payer MEDICARE, OTHER, SELFPAY ==
[2023-09-21 11:23] LABS: MANUAL DIFF FLAG NO
[2023-09-21 11:53] LABS: Alanine Aminotransferase 52 U/L (0-31); Albumin Level 4.4 g/dL (3.5-5.0); Alkaline Phosphatase 88 U/L (39-117); Anion Gap 13 (12-20); Aspartate Amino Transferase 52 U/L (5-31); Bilirubin Total 0.7 mg/dL (0.0-1.0); Blood Urea Nitrogen 13 mg/dL (9-16); Calcium 9.7 mg/dL (8.4-10.2); Carbon Dioxide 29 mmol/L (22-29); Chloride 103 mmol/L (96-108); Cholesterol 211 mg/dL (<200); Estimated Glomerular Filt Rate > 60; Glucose Random 95 mg/dL (60-115); HDL Cholesterol 43 mg/dL (>40); LDL Cholesterol Calculated 140 mg/dL (<100); Sodium 141 mmol/L (135-145); Total Protein 8.2 g/dL (6.5-8.0); Triglycerides 140 mg/dL (<150)
[2023-09-21 12:03] LABS: Alanine Aminotransferase 51 U/L (0-31); Albumin Level 4.4 g/dL (3.5-5.0); Alkaline Phosphatase 87 U/L (39-117); Anion Gap 12 (12-20); Aspartate Amino Transferase 52 U/L (5-31); Bilirubin Total 0.7 mg/dL (0.0-1.0); Blood Urea Nitrogen 13 mg/dL (9-16); Calcium 9.7 mg/dL (8.4-10.2); Carbon Dioxide 30 mmol/L (22-29); Chloride 103 mmol/L (96-108); Estimated Glomerular Filt Rate > 60; Free T4 (Free Thyroxine) 1.09 ng/dL (0.71-1.85); Glucose Random 97 mg/dL (60-115); Sodium 141 mmol/L (135-145); Total Protein 8.1 g/dL (6.5-8.0)
[2023-09-21 12:06] LABS: Basophils Absolute Auto 0.1 X10*3/uL (0.0-0.2); Basophils Percent Auto 0.8 % (0-2); Eosinophils Absolute Auto 0.1 X10*3/uL (0.0-0.4); Eosinophils Percent Auto 1.5 % (0-4); Hematocrit 45.1 % (37.0-47.0); Hemoglobin 14.7 g/dl (12.0-16.0); Imm Gran Abs Auto 0.04 X10*3/uL (0.00-0.03); Imm Gran Pct Auto 0.6 % (0.0-0.4); Lymphocytes Absolute Auto 2.1 X10*3/uL (1.2-4.9); Lymphocytes Percent Auto 31.6 % (20-40); Mean Corpuscular HGB Conc 32.6 g/dl (31.0-35.0); Mean Platelet Volume 10.1 fL (9.4-12.3); Monocytes Absolute Auto 0.4 X10*3/uL (0.1-1.2); Monocytes Percent Auto 6.3 % (2-11); Neutrophils Absolute Auto 3.9 x10*3/uL (2.0-8.3); Neutrophils Percent Auto 59.2 % (45-73); Platelet Count 171 X10*3/uL (160-400); Red Cell Distribution Width 13.4 % (11.0-16.0); White Blood Count 6.6 X10*3/uL (4.8-10.8)
[2023-09-21 12:16] LABS: Thyroid Stimulating Hormone 0.57 uIU/mL (0.32-4.0); Vitamin D 25-OH Total 44.3 ng/mL (>30)
[2023-09-21 12:25] LABS: Vitamin B12 771 pg/mL (200-900)
[2023-09-21 12:27] LABS: Folate 13.7 ng/mL (> or = 4.0); Vitamin B12 744 pg/mL (200-900)
[2023-09-26 15:14] LABS: Gastrin 999 pg/mL (<=100)
[2023-09-26 17:19] LABS: Vitamin B6 12.1 ng/mL (2.1-21.7)
[2023-09-27 12:59] LABS: Vitamin B1 8 nmol/L (8-30)
[2023-09-27 21:44] LABS: Nicotinamide 27 ng/mL; Vit B3 - Nicotinic Acid <20 ng/mL
[2023-09-28 01:54] LABS: Vitamin B5 (Pantothenic Acid) 46 ng/mL (<275)
== END 2023-09-21 07:17 | disposition home or self-care (01) ==
LOC: HO.HMGCLDS 07:16
PROVIDERS: Absent Provider Internal Medicine Gastroenterology; PCP Internal Medicine; Visit Provider Internal Medicine
DX: K29.40 Chronic atrophic gastritis without bleeding (principal); K75.81 Nonalcoholic steatohepatitis (NASH); E03.9 Hypothyroidism, unspecified; E78.00 Pure hypercholesterolemia, unspecified
CPT/HCPCS: 36415; 80053; 80061; 82306; 82607; 82746; 82941; 84207; 84425; 84439; 84443; 84591; 85025

== ENCOUNTER 2023-09-27 08:53 | Outpatient (AMB) | payer MEDICARE, OTHER, SELFPAY ==
[2023-09-27 08:54] VITALS: BP 142/90; PULSE 73; O2SAT 100; BMI 37.6
--- NOTE | 2023-09-27 08:54 | A.OFFVIS_ITS ---
Intake Vital Signs 09/27/23 08:54 Height 5 ft 6 in Weight 233 lb BMI 37.6 BP 142/90 H Blood Pressure Location Lt brachial Position Sitting Pulse 73 Pulse Source Pulse Oximeter Pulse Oximetry (%) 100 Oxygen Delivery Method Room Air Intake Visit Reasons: SAWWV Intake Note: Patient is here for an Annual Wellness Visit. Spiral Tube Winder Required: No Allergies rofecoxib [From VIOXX] Allergy (Severe, Verified 09/27/23 09:11) ANAPHYLAXIS latex [LATEX] Allergy (Mild, Verified 09/27/23 09:11) RASH;ITCHING acetaminophen [Tylenol-Codeine] Allergy (Unknown, Verified 09/27/23 09:11) hives codeine [Tylenol-Codeine] Allergy (Unknown, Verified 09/27/23 09:11) hives ciprofloxacin [From Cipro] Adverse Reaction (Intermediate, Verified 09/27/23 09:11) diarrhea cyclobenzaprine [From FLEXERIL] Adverse Reaction (Intermediate, Verified 09/27/23 09:11) TACYCARDIA lisinopril Adverse Reaction (Intermediate, Verified 09/27/23 09:11) cough atorvastatin Adverse Reaction (Unknown, Verified 09/27/23 09:11) body aches prednisone Adverse Reaction (Unknown, Verified 09/27/23 09:11) shaking aerosol Allergy (Unknown, Uncoded 09/27/23 09:11) Sneezing, difficulty breathing Vicodin Allergy (Unknown, Uncoded 09/27/23 09:11) heart racing Medication List - Last Reconciled 09/27/23 by ANDREW Lopes [activia yogurt PO] ezetimibe 10 mg PO DAILY levothyroxine 150 mcg PO QAM 90 days methylcellulose (laxative) (Citrucel) 500 mg PO BID multivitamin,yc-[id number]-mrxghmnz (Complete Multivitamin tablet) 1 tab PO DAILY HPI SAWWV HPI Details Patient is a 68-year-old male who presents today for subsequent wellness visit. Patient of Dr. Macedo. Today we discussed patient's need for mammogram, bone density screening, tetanus and pneumonia vaccines, patient has declined such screenings and immunizations. [place] of care was reviewed with the patient and she was provided with a screening schedule. End of life planning was discussed with the patient and she was provided with healthcare proxy and MOLST forms. In addition, patient reports right lower quadrant pain that started at 02:00 o'clock this morning, she did not have this pain in the past. Reports history of appendectomy at age 10, denies history of kidney stones, no urinary symptoms. Reports soft large bowel movement yesterday after taking laxatives. Reports a bdominal bloating for the past 3 days. Currently pain 7/10 scale. Denies diarrhea/constipation, no blood in stool, no nausea or vomiting, no fever or chills, denies injury. Followed by Dr. Rico due to diverticulosis and autoimmune gastritis. [facility] Medical History (Updated 09/27/23 @ 10:03 by NADREW Lopes) Nasal congestion Ear pain Otitis media Onychomycosis Medicare annual wellness visit, initial Fracture of phalanx of index finger Adjustment disorder Impaired glucose tolerance Vitamin D deficiency Hypertension Asthma Obesity (BMI 30-39.9) SCRUGGS (nonalcoholic steatohepatitis) Hypercholesterolemia Hx of diverticulitis of colon Fatty liver Hyperlipidemia Psoriasis Hypothyroidism Trigger finger Surgical History History of esophagogastroduodenoscopy (EGD) History of colonoscopy H/O arthroscopy of right knee Tear of meniscus of left knee H/O knee surgery H/O rhinoplasty Hx of tubal ligation History of appendectomy Family History Father Kidney failure Mother Bladder cancer Social History Housing: House Alcohol intake: never Patient Tobacco Use Status: Former Tobacco user Quit Date: 1991 Tobacco use type: Cigarette Years Smoked: quit 1991 e-Cigarette/Vaping Use: Never Used Second Hand Smoke Exposure: No service: No Current occupational status: retired Cognitive needs: No Hearing needs: No Vision needs: Yes Female Reproductive History Menstrual Age of Menarche: 12 Questionnaire Medicare Wellness Checkup What [age]?: [age] What gender do you identify with?: female During the past 4 weeks, how much have you been bothered by emotional problems such as feeling anxious, depressed, irritable, sad or downhearted, and blue?: slightly During the past 4 weeks, has your physical & emotional health limited your social activities with family, friends, neighbors, or groups?: slightly During the past 4 weeks, how much bodily pain have you generally had?: moderate pain During the past 4 weeks, was someone available to help you if you needed & wanted help?: yes, some During the past 4 weeks, what was the hardest physical activity you could do for at least 2 minutes?: heavy Can you get to places out of walking distance without help? (For eg., can you travel alone on buses, taxis or drive your car?): Yes Can you go shopping for groceries or clothes without someone's help?: Yes Can you prepare your own meals?: Yes Can you do your housework without help?: Yes Because of any health problems, do you need the help of another person with your personal care needs such as eating, bathing, dressing or getting around the house?: No Can you handle your own money without help?: Yes During the past 4 weeks, how would you rate your health in general?: good During the past 4 weeks how have things been going for you?: pretty well Are you having difficulties driving your car?: no Do you always fasten your seat belt when you are in a car?: yes, usually During past 4 weeks, have you been bothered by the following: never: Falling or dizzy when standing up, Sexual problems?, Trouble eating well?, Teeth or denture problems?, Problems using the telephone? and Tiredness or fatigue? Have you fallen 2 or more times in the past year?: No Are you afraid of falling?: Yes Are you a smoker?: no During the past 4 weeks, how many drinks of wine, beer, or other alcoholic beverages did you have?: no alcohol at all Do you exercise for about 20 minutes 3 or more times a week?: yes, most of the time Have you been given information to help with the following?: yes: Hazards in your house that might hurt you? and yes: Keeping track of your medications? How often do you have trouble taking medicines the way you have been told to take them?: I always take medicine as prescribed How confident are you that you can control & manage most of your health problems?: very confident What is your race?: or origin or descent Mini Mental State Exam (MMSE) Orientation What is the (year) (season) (date) (day) (month)?: year, season, date, day and month Score Score: 5 Activity of Daily Living Bathing - sponge bath, tub bath or shower: receives no assistance (gets in/out by self, if usual bathing means Dressing - getting clothes from closets & drawers, including inner/outer garments & fasteners.: gets clothes & gets completely dressed without help Toileting - going to the 'toilet room' for urine/bowel elimination & cleaning self/arranging clothes: goes to toilet room, cleans self, arranges clothes without help Transfer: moves in & out of bed and chair without help (may use support object) Continence: controls urination/bowel movements completely by self Feeding: feeds self without help Total Score: 0 Information obtained from: patient Using telephone: independent Traveling: independent Shopping: independent Preparing meals: independent Housework: independent Taking medicine: independent Managing money: independent PHQ-9 Over the last 2 weeks, how often have you been bothered by any of the following problems? 1. Little interest or pleasure in doing things: not at all 2. Feeling down, depressed, or hopeless: not at all 3. Trouble falling or staying asleep, or sleeping too much: not at all 4. Feeling tired or having little energy: not at all 5. Poor appetite or overeating: not at all 6. Feeling bad about yourself - or that you are a failure or have let yourself or your family down: not at all 7. Trouble concentrating on things, such as reading the newspaper or watching television: not at all 8. Moving or speaking so slowly that other people could have noticed. Or the opposite - being so fidgety or restless that you have been moving around a lot more than usual: not at all 9. Thoughts that you would be better off or of hurting yourself in some way: not at all Total score: 0 Depression Screening Interpretation: Negative Depression Screening Done: Yes 78087 - PHQ-9 Billing: Yes Source: Developed by Drs. Jose Hendricks, Anika Bain, Beka Casas and colleagues, with an educational walt from [email or web address] Review of Systems GI Reports as per HPI Physical Exam Vital Signs: Last Vital Signs Pulse 73 09/27/23 08:54 BP 142/90 H 09/27/23 08:54 Pulse Ox 100 09/27/23 08:54 Oxygen Delivery Method Room Air 09/27/23 08:54 BMI result Body Mass Index 37.6 Const General: cooperative and no acute distress Orientation/consciousness: patient oriented x3 HEENT Other: Whisper test: pass Head: Yes normocephalic and Yes atraumatic Throat: Yes posterior oropharynx normal Eyes General: appearance normal, both eyes and all related structures Resp Auscultation: clear to auscultation bilaterally Cardio Rate: regular rate Rhythm: regular rhythm Heart sounds: S1 normal heart sound present and S2 normal heart sound present GI Inspection: Yes normal to inspection Palpation (GI): Soft to palpation, not firm, Tenderness to palpation present (GI) in the epigastrum, in the RLQ and in the RUQ; with no rebound tenderness and no guarding Auscultation: normal bowel sounds General: No CVA tenderness Back/Spine/Pelvis Back: No CVA tenderness Neuro Other: Balance: Normal Get up and walk: unable to Romberg: negative Tandem gait: able to General: patient oriented x3 Assessment & Plan Assessment & Plan (1) Hypothyroidism: Code(s): E03.9 - Hypothyroidism, unspecified Qualifiers: Hypothyroidism type: acquired Qualified Code(s): E03.9 - Hypothyroidism, unspecified Plan: Levothyroxine 150 mcg daily (2) Hypercholesterolemia: Code(s): E78.00 - Pure hypercholesterolemia, unspecified Plan: Zetia 10 mg daily Low-cholesterol diet (3) Impaired glucose tolerance: Code(s): R73.02 - Impaired glucose tolerance (oral) Plan: Low-carbohydrate diet (4) Hypertension: Comment: Coronary angiography February 2013 unremarkable Code(s): I10 - Essential (primary) hypertension Qualifiers: Hypertension type: essential hypertension Qualified Code(s): I10 - Essential (primary) hypertension Plan: Goal BP equal or less than 140/90 Low-sodium diet and exercise as tolerated (5) Obesity (BMI 30-39.9): Code(s): E66.9 - Obesity, unspecified Plan: Healthy food choices and exercise as tolerated (6) Adult general medical exam: Code(s): Z00.00 - Encounter for general adult medical examination without abnormal findings (7) Abdominal bloating: Code(s): R14.0 - Abdominal distension (gaseous) Plan: Patient presents with abdominal bloating for the past 3 days and started with right lower quadrant pain this morning, history of appendectomy at age 10, physical exam with tenderness in epigastric area, right upper quadrant, right lower quadrant. Reports large soft bowel movement yesterday. No diarrhea or constipation, no nausea or vomiting, no blood in stool, denies urinary symptoms. Will treat with simethicone t.i.d.-q.i.d. p.r.n.. Signs and symptoms reviewed when to notify provider or go to the emergency department. Patient agreed with the plan (8) Autoimmune gastritis: Code(s): K29.40 - Chronic atrophic gastritis without bleeding Plan: Continue to follow-up with GI Dr. Rico (9) Mammogram declined: Code(s): Z53.20 - Procedure and treatment not carried out because of patient's decision for unspecified reasons Plan Keep appointment with PCP as scheduled Medications: New simethicone (Gas Relief (simethicone)) 80 mg PO TID-QID PRN 30 tabs 0RF abdominal distention R14.0 - Abdominal distension (gaseous) Quality Reporting (2019) Depression/Bipolar (159/160/161/177) PHQ-9: Total score: 0 Coding Level of Care Code Medicare Subsequent (G0439) Diagnoses Acquired hypothyroidism E03.9 Hypothyroidism type: acquired Hypercholesterolemia E78.00 Impaired glucose tolerance R73.02 Essential hypertension I10 Hypertension type: essential hypertension Obesity (BMI 30-39.9) E66.9 Adult general medical exam Z00.00 Abdominal bloating R14.0 Autoimmune gastritis K29.40 Mammogram declined Z53.20 CPT Codes Advance Care Planning - Time spent: 1-15 minutes, not on file ([id number]) Advance Care Planning Date of discussion: 09/27/23 Who was present: pt and psychiatric arnp Forms completed: None Time spent: 1-15 minutes, not on file Actual minutes spent: 3 Did not discuss due to Cultural/Spiritual beliefs: No
== END 2023-09-27 09:32 | disposition home or self-care (01) ==
PROVIDERS: Visit Provider Nurse Practitioner Family
DX: Z00.00 Encounter for general adult medical examination without abnormal findings (principal); E03.9 Hypothyroidism, unspecified; E78.00 Pure hypercholesterolemia, unspecified; R73.02 Impaired glucose tolerance (oral); I10 Essential (primary) hypertension; E66.9 Obesity, unspecified; R14.0 Abdominal distension (gaseous); K29.40 Chronic atrophic gastritis without bleeding; Z53.20 Procedure and treatment not carried out because of patient's decision for unspecified reasons; Z68.37 Body mass index [BMI] 37.0-37.9, adult
CPT/HCPCS: 1124F; G0439

== ENCOUNTER 2023-09-27 09:41 | Outpatient (REF) | payer MEDICARE, OTHER, SELFPAY | END 2023-09-27 09:42 | disposition home or self-care (01) | LOC: HO.LAB 09:41 | PROVIDERS: PCP Internal Medicine; Visit Provider Internal Medicine Gastroenterology | DX: K29.40 Chronic atrophic gastritis without bleeding (principal) | CPT/HCPCS: 83519 ==

== ENCOUNTER 2023-10-10 12:35 | Day surgery (SDC) | payer MEDICARE, OTHER, SELFPAY ==
--- NOTE | 2023-10-09 09:26 | HO.ANESPROP2 ---
Documented by User: Ann Das NP 10/09/23 09:28 HPI - Anesthesia Eval Consult details Narrative: 68yo F for Upper Endoscopy Gastric PH (Gastric mapping) s/p EGD and [place] 02/2023 with [facility] Active Problems Active Problems: All Active Problems (Updated 09/27/23 @ 10:03 by ANDREW Lopes) Mammogram declined (Acute) Abdominal bloating (Acute) White coat syndrome with diagnosis of hypertension (Acute) Elevated gastrin level (Acute) Autoimmune gastritis (Acute) Diverticulosis (Acute) Hemorrhoids (Acute) Onychomycosis (Acute) Alopecia (Acute) Dysphagia (Acute) History of colon polyps (Acute) Diverticulosis of colon (Acute) Adult general medical exam (Acute) Colon cancer screening (Acute) Diverticulitis (Acute) Generalized anxiety disorder (Acute) Knee osteoarthritis (Acute) Hypothyroidism (Acute) Hypercholesterolemia (Acute) Impaired glucose tolerance (Acute) Hypertension (Acute) Obesity (BMI 30-39.9) (Acute) SCRUGGS (nonalcoholic steatohepatitis) (Acute) Tympanic membrane perforation (Acute) Past Medical History Medical History Nasal congestion Ear pain Otitis media Onychomycosis Medicare annual wellness visit, initial Fracture of phalanx of index finger Adjustment disorder Impaired glucose tolerance Vitamin D deficiency Hypertension Asthma Obesity (BMI 30-39.9) SCRUGGS (nonalcoholic steatohepatitis) Hypercholesterolemia Hx of diverticulitis of colon Fatty liver Hyperlipidemia Psoriasis Hypothyroidism Trigger finger Family History Family History Father Kidney failure Mother Bladder cancer Family history of problems with anesthesia: No Surgical History Surgical History History of esophagogastroduodenoscopy (EGD) History of colonoscopy H/O arthroscopy of right knee Tear of meniscus of left knee H/O knee surgery H/O rhinoplasty Hx of tubal ligation History of appendectomy History of Problems with Anesthesia: No Social History Social History Housing: House Alcohol intake: never Patient Tobacco Use Status: Former Tobacco user Quit Date: 1991 Tobacco use type: Cigarette Years Smoked: quit 1991 e-Cigarette/Vaping Use: Never Used Second Hand Smoke Exposure: No Are you DNR?: No Advance Directives: No Advance Directives Information Provided: Yes Nutrition Risks: No Nutritional Risk service: No Current occupational status: retired Cognitive needs: No Hearing needs: No Vision needs: Yes Meds Allergies Allergy/AdvReac Type Severity Reaction Status Date / Time rofecoxib [From VIOXX] Allergy Severe ANAPHYLAXIS Verified 10/10/23 12:53 latex [LATEX] Allergy Mild RASH;ITCHIN Verified 10/10/23 12:53 G acetaminophen Allergy Unknown hives Verified 10/10/23 12:53 [Tylenol-Codeine] codeine [Tylenol-Codeine] Allergy Unknown hives Verified 10/10/23 12:53 ciprofloxacin [From Cipro] AdvReac Intermediate diarrhea Verified 10/10/23 12:53 cyclobenzaprine AdvReac Intermediate TACYCARDIA Verified 10/10/23 12:53 [From FLEXERIL] lisinopril AdvReac Intermediate cough Verified 10/10/23 12:53 atorvastatin AdvReac Unknown body aches Verified 10/10/23 12:53 prednisone AdvReac Unknown shaking Verified 10/10/23 12:53 aerosol Allergy Unknown Sneezing, Uncoded 10/10/23 12:53 difficulty breathing Vicodin Allergy Unknown heart Uncoded 10/10/23 12:53 racing Home Medications Medication Instructions Recorded Confirmed Last Taken Type multivitamin,zu-edbv-xzwlcvlz 1 tab PO DAILY 10/20/20 09/27/23 03/01/23 History (Complete Multivitamin tablet) activia yogurt PO 08/30/23 09/27/23 Unknown History Exam Pertinent Lab Results Pertinent Lab Results: Laboratory Tests 09/21/23 07:43 WBC 6.6 Hgb 14.7 Hct 45.1 Plt Count 171 Sodium 141 Potassium 4.0 Chloride 103 Carbon Dioxide 30 H BUN 13 Creatinine 0.74 Assessment and Plan Assessment Anesthesia Assessment: Chart Reviewed Final Anesthetic Review Family History of Problems with Anesthesia: No History of Problems with Anesthesia: No Documented by User: Justin Cary MD 10/10/23 12:56 [facility] Past Medical History Medical History Nasal congestion Ear pain Otitis media Onychomycosis Medicare annual wellness visit, initial Fracture of phalanx of index finger Adjustment disorder Impaired glucose tolerance Vitamin D deficiency Hypertension Asthma Obesity (BMI 30-39.9) SCRUGGS (nonalcoholic steatohepatitis) Hypercholesterolemia Hx of diverticulitis of colon Fatty liver Hyperlipidemia Psoriasis Hypothyroidism Trigger finger Family History Family History Father Kidney failure Mother Bladder cancer Surgical History Surgical History History of esophagogastroduodenoscopy (EGD) History of colonoscopy H/O arthroscopy of right knee Tear of meniscus of left knee H/O knee surgery H/O rhinoplasty Hx of tubal ligation History of appendectomy Social History Social History Housing: House Alcohol intake: never Patient Tobacco Use Status: Former Tobacco user Quit Date: 1991 Tobacco use type: Cigarette Years Smoked: quit 1991 e-Cigarette/Vaping Use: Never Used Second Hand Smoke Exposure: No Are you DNR?: No Advance Directives: No Advance Directives Information Provided: Yes Nutrition Risks: No Nutritional Risk service: No Current occupational status: retired Cognitive needs: No Hearing needs: No Vision needs: Yes Meds Allergies Allergy/AdvReac Type Severity Reaction Status Date / Time rofecoxib [From VIOXX] Allergy Severe ANAPHYLAXIS Verified 10/10/23 12:53 latex [LATEX] Allergy Mild RASH;ITCHIN Verified 10/10/23 12:53 G acetaminophen Allergy Unknown hives Verified 10/10/23 12:53 [Tylenol-Codeine] codeine [Tylenol-Codeine] Allergy Unknown hives Verified 10/10/23 12:53 ciprofloxacin [From Cipro] AdvReac Intermediate diarrhea Verified 10/10/23 12:53 cyclobenzaprine AdvReac Intermediate TACYCARDIA Verified 10/10/23 12:53 [From FLEXERIL] lisinopril AdvReac Intermediate cough Verified 10/10/23 12:53 atorvastatin AdvReac Unknown body aches Verified 10/10/23 12:53 prednisone AdvReac Unknown shaking Verified 10/10/23 12:53 aerosol Allergy Unknown Sneezing, Uncoded 10/10/23 12:53 difficulty breathing Vicodin Allergy Unknown heart Uncoded 10/10/23 12:53 racing Home Medications Medication Instructions Recorded Confirmed Last Taken Type multivitamin,tq-mqzb-zwnwyolu 1 tab PO DAILY 10/20/20 09/27/23 03/01/23 History (Complete Multivitamin tablet) activia yogurt PO 08/30/23 09/27/23 Unknown History Exam Airway Mallampati Class: II TM Dist: >3cm Neck ROM: Full Assessment and Plan Assessment Anesthesia Assessment: Anesthesia Plan Discussed Final Anesthetic Review NPO: Yes ASA Class: III Final Preanesthetic Review: No Changes in Pt Med Stat, Meds/Allgs Chart Reviewed, Consent Obtained/Reviewed and Anes Risks/Benef Reviewed Patient Risk: Intermediate Procedure Risk: Low Anesthetic Plan Anesthetic Plan: MAC: Disposition: Standard PACU
[2023-10-10 12:48] VITALS: BMI 37.6
[2023-10-10] MEDS: Lactated Ringers 1,000 ML 100 ML IVCONT (12:57)
[2023-10-10 13:07] VITALS: BP 143/81; PULSE 62; RESP 18; TEMP 36.7; O2SAT 100
--- NOTE | 2023-10-10 13:41 | MHC.SHP ---
Pre-Procedural Eval Section A Date of Service: 10/10/23 Section B Chief Complaint: Increased secretion of gastrin,atrophic gastritis Relevant Family History (Specify if Yes): No Relevant Social History: None Present Medications: see Short Stay Collaborative assessment Medical History: Significant History (Nasal congestion Ear pain Otitis media Onychomycosis Medicare annual wellness visit, initial Fracture of phalanx of index finger Adjustment disorder Impaired glucose tolerance Vitamin D deficiency Hypertension Asthma Obesity (BMI 30-39.9) SCRUGGS (nonalcoholic steatohepatitis) Hypercholesterolemia Hx o) History of Previous Operations: Relevant previous surgery/procedure and date(s) (History of esophagogastroduodenoscopy (EGD) History of colonoscopy H/O arthroscopy of right knee Tear of meniscus of left knee H/O knee surgery H/O rhinoplasty Hx of tubal ligation History of appendectomy) Allergies: Allergies Allergy/AdvReac Type Severity Reaction Status Date / Time rofecoxib [From VIOXX] Allergy Severe ANAPHYLAXIS Verified 10/10/23 12:53 latex [LATEX] Allergy Mild RASH;ITCHIN Verified 10/10/23 12:53 G acetaminophen Allergy Unknown hives Verified 10/10/23 12:53 [Tylenol-Codeine] codeine [Tylenol-Codeine] Allergy Unknown hives Verified 10/10/23 12:53 ciprofloxacin [From Cipro] AdvReac Intermediate diarrhea Verified 10/10/23 12:53 cyclobenzaprine AdvReac Intermediate TACYCARDIA Verified 10/10/23 12:53 [From FLEXERIL] lisinopril AdvReac Intermediate cough Verified 10/10/23 12:53 atorvastatin AdvReac Unknown body aches Verified 10/10/23 12:53 prednisone AdvReac Unknown shaking Verified 10/10/23 12:53 aerosol Allergy Unknown Sneezing, Uncoded 10/10/23 12:53 difficulty breathing Vicodin Allergy Unknown heart Uncoded 10/10/23 12:53 racing Review of Systems Sugical H&P ROS: Negative: Constitution, Cardiovascular, Respiratory, Neurological, Psychiatric, Hem-Onc, Allergic/Immunologic, Gastrointestinal, Genitourinary, Musculoskeletal, Integumentary, Endocrine and Eyes/Ears/Nose/Throat Exam Surgical H&P Exam: Normal: HEENT, Normal: Heart, Normal: Lungs, Normal: Extremities, Normal: Abdomen, Normal: Skin and Normal: Neurological Plan Diagnosis/Plan: Unchanged I have reviewed the history and physical and performed a pertinent physical examination on my patient. No changes have occurred unless specified. Time Spent With Patient Time: Total time managing care of this patient today ____ minutes.
--- NOTE | 2023-10-10 13:41 | W.PM.OPN ---
Operative Note Operative Note Date of Service: 10/10/23 Narrative: Procedure Description: EGD Indication: gastric mapping Anesthesia: MAC FLEXIBLE TRANSORAL UPPER GASTROINTESTINAL ENDOSCOPY UPPER ENDOSCOPY Consent: Indications for the procedure and potential complications of bleeding, perforation, reaction to medications and missed diagnosis were discussed with the patient and informed consent was obtained. Instrument: Olympus GIF H 190 J mid size upper endoscope Monitoring: Vital signs and clinical assessment, continuous EKG monitoring, Pulse oximetry, Carbon Dioxide monitoring and blood pressure monitoring were done throughout the procedure. Procedure: The patient was placed in the left lateral decubitis position and pre-procedure medications were administered and a bite block was placed. The endoscope was inserted into the mouth and advanced under direct vision to the third part of duodenum. A careful inspection was made as the upper endoscope was withdrawn including a retroflexed examination of the proximal stomach; Findings and interventions are described below. Findings: Larynx:normal Esophagus: GE junction at 40 cm, diaphragm hiatus at 40 cm, random esophgeal bx taken Stomach: Marked erythema and edema throughout stomach. Biopsies were obtained from pylorus, angualaris, stomach body and fundal areas. Grade 2 flap valve on retroflexed examination of the cardia. Duodenum: Normal bulb and descending duodenum, bx taken Intervention: Biopsies as noted above Impression/Findings: chronic gastritis PLAN: await bx results rept EGD in 1 year if path stable
[2023-10-10 14:23] VITALS: BP 169/89; PULSE 84; RESP 16; TEMP 36.4; O2SAT 97
[2023-10-10 14:38] VITALS: BP 154/96; PULSE 78; RESP 18; TEMP 36.9; O2SAT 97
== END 2023-10-10 15:05 | disposition home or self-care (01) ==
PROVIDERS: PCP Internal Medicine; Visit Provider Internal Medicine Gastroenterology
PROC: 0DJ08ZZ Inspection of Upper Intestinal Tract, Via Natural or Artificial Opening Endoscopic (ICD-10-PCS; CPT 43235; principal; 2023-10-10 14:50)
DX: K29.40 Chronic atrophic gastritis without bleeding (principal); K44.9 Diaphragmatic hernia without obstruction or gangrene; K75.81 Nonalcoholic steatohepatitis (NASH); I10 Essential (primary) hypertension; E78.00 Pure hypercholesterolemia, unspecified; J45.909 Unspecified asthma, uncomplicated; F43.20 Adjustment disorder, unspecified; R73.02 Impaired glucose tolerance (oral); E55.9 Vitamin D deficiency, unspecified; E66.9 Obesity, unspecified; Z68.37 Body mass index [BMI] 37.0-37.9, adult; Z79.899 Other long term (current) drug therapy; Z91.040 Latex allergy status; Z88.5 Allergy status to narcotic agent; Z88.1 Allergy status to other antibiotic agents; Z88.8 Allergy status to other drugs, medicaments and biological substances; Z98.890 Other specified postprocedural states; Z87.891 Personal history of nicotine dependence
CPT/HCPCS: 43239; 88305; 88342; J2704

== ENCOUNTER → 2023-10-10 12:35 | Outpatient (BNV) | payer MEDICARE, OTHER, SELFPAY | PROVIDERS: PCP Internal Medicine; Visit Provider Internal Medicine Gastroenterology | DX: K29.50 Unspecified chronic gastritis without bleeding (principal) | CPT/HCPCS: 43239 ==

== ENCOUNTER 2023-11-02 09:47 | Outpatient (AMB) | payer MEDICARE, OTHER, SELFPAY ==
--- NOTE | 2023-11-02 09:54 | A.OFFVIS_ITS ---
Intake Vital Signs 11/02/23 10:01 Height 5 ft 6 in Weight 238 lb 1.588 oz BMI 38.4 BP 179/74 H Blood Pressure Location Lt brachial Position Sitting Pulse 81 Intake Visit Reasons: EGD results Intake Note: Tati presents in the office as a follow up EGD. CC: She states that is having concerns about her results. 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 Allergies rofecoxib [From VIOXX] Allergy (Severe, Verified 11/02/23 09:57) ANAPHYLAXIS latex [LATEX] Allergy (Mild, Verified 11/02/23 09:57) RASH;ITCHING acetaminophen [Tylenol-Codeine] Allergy (Unknown, Verified 11/02/23 09:57) hives codeine [Tylenol-Codeine] Allergy (Unknown, Verified 11/02/23 09:57) hives ciprofloxacin [From Cipro] Adverse Reaction (Intermediate, Verified 11/02/23 09:57) diarrhea cyclobenzaprine [From FLEXERIL] Adverse Reaction (Intermediate, Verified 11/02/23 09:57) TACYCARDIA lisinopril Adverse Reaction (Intermediate, Verified 11/02/23 09:57) cough atorvastatin Adverse Reaction (Unknown, Verified 11/02/23 09:57) body aches prednisone Adverse Reaction (Unknown, Verified 11/02/23 09:57) shaking aerosol Allergy (Unknown, Uncoded 11/02/23 09:57) Sneezing, difficulty breathing Vicodin Allergy (Unknown, Uncoded 11/02/23 09:57) heart racing Medication List - Last Reconciled 11/02/23 by Theresa Weber PA-C [activia yogurt PO] ezetimibe 10 mg PO DAILY fluocinonide 0.05% topical levothyroxine 150 mcg PO QAM 90 days methylcellulose (laxative) (Citrucel) 500 mg PO BID multivitamin,[id number] (Complete Multivitamin tablet) 1 tab PO DAILY HPI HPI Comments History of Present Illness Details A 68 y/o female f/u after EGD w/ bx- gastric mapping AIG she tolerated well- She has hoarseness- Reviewed procedure report pathology recommendation She has no dysphagia, acid reflux, no nausea, vomiting fever chills PFSH Medical History (Updated 11/02/23 @ 10:21 by Theresa Weber PA-C) Nasal congestion Ear pain Otitis media Onychomycosis Medicare annual wellness visit, initial Fracture of phalanx of index finger Adjustment disorder Impaired glucose tolerance Vitamin D deficiency Hypertension Asthma Obesity (BMI 30-39.9) SCRUGGS (nonalcoholic steatohepatitis) Hypercholesterolemia Hx of diverticulitis of colon Fatty liver Hyperlipidemia Psoriasis Hypothyroidism Trigger finger Surgical History History of esophagogastroduodenoscopy (EGD) History of colonoscopy H/O arthroscopy of right knee Tear of meniscus of left knee H/O knee surgery H/O rhinoplasty Hx of tubal ligation History of appendectomy Family History Father Kidney failure Mother Bladder cancer Social History Housing: House Alcohol intake: never Patient Tobacco Use Status: Former Tobacco user Quit Date: 1991 Tobacco use type: Cigarette Years Smoked: quit 1991 e-Cigarette/Vaping Use: Never Used Second Hand Smoke Exposure: No service: No Current occupational status: retired Cognitive needs: No Hearing needs: No Vision needs: Yes Female Reproductive History Menstrual Age of Menarche: 12 Review of Systems Const All systems reviewed & are unremarkable except as noted in HPI and below ENT Denies dysphagia and Reports hoarseness Card Denies chest pain and Denies dyspnea Resp Denies dyspnea GI Denies abdominal pain, Denies bloating, Denies hematochezia, Denies dysphagia and Denies heartburn Physical Exam Vital Signs: Last Vital Signs Pulse 81 11/02/23 10:01 BP 179/74 H 11/02/23 10:01 BMI result Body Mass Index 38.4 Const General: cooperative, healthy appearing, comfortable, no acute distress and anxious Nutritional Appearance: overweight Orientation/consciousness: patient oriented x3 Limitations: no limitations Eyes Sclerae: sclerae normal Resp Effort & Inspection: normal respiratory effort and able to speak in complete sentences Auscultation: clear to auscultation bilaterally and no wheezes Cardio Rate: regular rate Rhythm: regular rhythm Heart sounds: S1 normal heart sound present and S2 normal heart sound present Neuro General: patient oriented x3 Extrem General: Yes full ROM Psych Appearance: grossly normal and well kempt Mental Status: mental status grossly normal Speech and movement: Normal speech and movement present Affect: Anxious affect present Attitude: cooperative Thought process: Normal thought process present Thought content: Normal thought content present Insight: Good insight present (Psych) Judgement: Good judgement present (Psych) Results Reviewed Results Reviewed: Impression/Findings: chronic gastritis PLAN: await bx results rept EGD in 1 year if path stable Name: Tati Cervantes Age/Sex: 68/F Attending: Venkatesh Rico MD : 1955 Submitted by: Venkatesh Rico MD Copies to: Ed Macedo MD MR #: [id number] Status: [facility] Collected: 10/10/23 Location: [facility] Received: 10/11/23 Diagnosis A. Duodenum, biopsy: Duodenal mucosa within normal limits. B. Stomach, antrum, biopsy: Antral-type mucosa with moderate chronic inactive inflammation; no Helicobacter organisms seen. C. Stomach, angularis, biopsy: Antral-type mucosa with moderate chronic inactive inflammation; no Helicobacter organisms seen. D. Stomach, greater curvature body, biopsy: Chronic atrophic gastritis; negative for intestinal metaplasia or dysplasia; negative for H pylori. E. Stomach, lesser curvature body, biopsy: Chronic atrophic gastritis with focal intestinal metaplasia; negative for dysplasia or H pylori. F. Stomach, fundus, biopsy: Chronic atrophic gastritis; negative for intestinal metaplasia or dysplasia; negative for H pylori. G. Esophagus, random, biopsy: Squamous epithelium within normal limits; no inflammation seen. Clinical History Autoimmune gastritis Microscopic Description A-G. Microscopic sections reviewed. Immunostain for H. pylori is non-reactive (B and F). Material Received A. Duodenum bx's B. Gastric antrum bx's C. Angularis bx's D. Greater curvature body bx's E. Lesser curvature body bx's F. Fundus bx's G. Random esophagus bx's Gross Description Received in 7 parts. Patient: Tati Cervantes Age/Sex: 68/F MR#: [id number] Page 1 of 2 Assessment & Plan Assessment & Plan (1) Autoimmune gastritis: Code(s): K29.40 - Chronic atrophic gastritis without bleeding Plan: will check B12 level order in place Repeat EGD 1 year (2) Dysphagia: Comment: no further c/o Code(s): R13.10 - Dysphagia, unspecified Plan: Monitor symptoms if reoccurs will report Plan Repeat EGD 1 year- order placed Orders: Orders EDG - GI Use Only 11 Months K29.40 - Chronic atrophic gastritis without bleeding Medications: Discontinued simethicone (Gas Relief (simethicone)) Discontinued Reason: Patient no longer taking 80 mg PO TID-QID PRN 30 tabs 0RF abdominal distention R14.0 - Abdominal distension (gaseous) Patient Instructions: Repeat EGD 1 year- order placed B12 level Daughter symptoms and recurrence dysphagia will report Encouraged to call questions or concerns Appreciate the opportunity assist in the care the patient Coding Level of Care Code New Pt Level 3 (76903) Diagnoses Autoimmune gastritis K29.40 Dysphagia R13.10 Time Spent (min) 25
[2023-11-02 10:01] VITALS: BP 179/74; PULSE 81; BMI 38.4
== END 2023-11-02 12:25 | disposition home or self-care (01) ==
PROVIDERS: PCP Internal Medicine; Visit Provider Physician Assistant
DX: K29.40 Chronic atrophic gastritis without bleeding (principal); R13.10 Dysphagia, unspecified
CPT/HCPCS: 99213

== ENCOUNTER → 2023-11-02 09:47 | Outpatient (BNVA) | payer MEDICARE, OTHER, SELFPAY | PROVIDERS: PCP Internal Medicine; Visit Provider Physician Assistant | DX: K29.40 Chronic atrophic gastritis without bleeding (principal); R13.10 Dysphagia, unspecified | CPT/HCPCS: 99212 ==

== ENCOUNTER 2024-01-01 09:52 | Outpatient (AMB) | payer MEDICARE, OTHER, SELFPAY ==
[2024-01-01 12:05] VITALS: BP 154/82; PULSE 82; TEMP 36.6; O2SAT 97; BMI 38.6
--- NOTE | 2024-01-01 12:05 | MHC.OFFWIV ---
Intake Vital Signs 01/01/24 12:05 Height 5 ft 6 in Weight 239 lb BMI 38.6 BP 154/82 H Blood Pressure Location Lt brachial Position Sitting Pulse 82 Pulse Source Pulse Oximeter Temp 97.9 F Temp Source Oral Pulse Oximetry (%) 97 Intake Visit Reasons: EP Ear Ache/Sinus [phone] Intake Note: pt is here today for ear ache and sinus started 1 week ago Patient Tobacco Use Status: Former Tobacco user Quit Date: 1991 Allergies rofecoxib [From VIOXX] Allergy (Severe, Verified 01/01/24 12:06) ANAPHYLAXIS latex [LATEX] Allergy (Mild, Verified 01/01/24 12:06) RASH;ITCHING acetaminophen [Tylenol-Codeine] Allergy (Unknown, Verified 01/01/24 12:06) hives codeine [Tylenol-Codeine] Allergy (Unknown, Verified 01/01/24 12:06) hives ciprofloxacin [From Cipro] Adverse Reaction (Intermediate, Verified 01/01/24 12:06) diarrhea cyclobenzaprine [From FLEXERIL] Adverse Reaction (Intermediate, Verified 01/01/24 12:06) TACYCARDIA lisinopril Adverse Reaction (Intermediate, Verified 01/01/24 12:06) cough atorvastatin Adverse Reaction (Unknown, Verified 01/01/24 12:06) body aches prednisone Adverse Reaction (Unknown, Verified 01/01/24 12:06) shaking aerosol Allergy (Unknown, Uncoded 11/02/23 09:57) Sneezing, difficulty breathing Vicodin Allergy (Unknown, Uncoded 11/02/23 09:57) heart racing Do you need a note to return to daycare/school/sports/work: No HPI HPI Comments History of Present Illness Details The patient presents to emergency department for evaluation of nasal congestion slight cough. She states that last week she had congestion cough and fever for 3 days. She believes this was a result of visiting her neighbor the previous week who reported to have a cold of some sort. Patient suspected she would not catch it as she never catches colds. She reports bilateral ear pain [facility] Medical History (Updated 11/02/23 @ 10:21 by Theresa Weber PA-C) Nasal congestion Ear pain Otitis media Onychomycosis Medicare annual wellness visit, initial Fracture of phalanx of index finger Adjustment disorder Impaired glucose tolerance Vitamin D deficiency Hypertension Asthma Obesity (BMI 30-39.9) SCRUGGS (nonalcoholic steatohepatitis) Hypercholesterolemia Hx of diverticulitis of colon Fatty liver Hyperlipidemia Psoriasis Hypothyroidism Trigger finger Surgical History History of esophagogastroduodenoscopy (EGD) History of colonoscopy H/O arthroscopy of right knee Tear of meniscus of left knee H/O knee surgery H/O rhinoplasty Hx of tubal ligation History of appendectomy Family History Father Kidney failure Mother Bladder cancer Social History Housing: House Alcohol intake: never Patient Tobacco Use Status: Former Tobacco user Quit Date: 1991 Tobacco use type: Cigarette Years Smoked: quit 1991 e-Cigarette/Vaping Use: Never Used Second Hand Smoke Exposure: No service: No Current occupational status: retired Cognitive needs: No Hearing needs: No Vision needs: Yes Female Reproductive History Menstrual Age of Menarche: 12 Review of Systems Const Reports body aches, Reports chills, Reports fatigue, Reports fever(s), Reports headache(s) and Reports malaise ENT Denies dizziness, Reports headache(s), Reports nasal congestion and Reports sore throat Card Denies rapid heart rate, Denies dyspnea and Denies dyspnea on exertion Resp Denies dyspnea and Denies dyspnea on exertion GI Denies dyspepsia and Denies heartburn Musc Denies arthralgias and Denies muscle cramps Neuro Denies dizziness, Reports headache(s), Denies focal weakness and Denies Other visual disturbances Endo Reports fatigue Physical Exam Vital Signs: Last Vital Signs Temp 97.9 F 01/01/24 12:05 Pulse 82 01/01/24 12:05 BP 154/82 H 01/01/24 12:05 Pulse Ox 97 01/01/24 12:05 BMI result Body Mass Index 38.6 Const General: healthy appearing and no acute distress HEENT Head: Yes normal to inspection Ears: external ears normal and TM's normal bilaterally Mouth: Normal oral and palatal mucosa present Resp Effort & Inspection: normal respiratory effort and able to speak in complete sentences Auscultation: clear to auscultation bilaterally Cardio Rate: regular rate Rhythm: regular rhythm Assessment & Plan Assessment & Plan (1) URI (upper respiratory infection): Code(s): J06.9 - Acute upper respiratory infection, unspecified Plan URI Patient's symptoms consistent with viral URI. Recommend supportive measures such as Sudafed. Patient reports no history of blood pressure problem though she is hypertensive today and has a diagnosis of white coat syndrome. No indication for antibiotics as symptoms are likely viral she had a fever last week and believes she caught a cold a neighbor. Recommend follow-up to PCP Coding Level of Care Code Est Pt Level 3 (62606) Diagnoses URI (upper respiratory infection) J06.9
== END 2024-01-01 12:48 | disposition home or self-care (01) ==
PROVIDERS: PCP Internal Medicine; Visit Provider Emergency Medicine
DX: J06.9 Acute upper respiratory infection, unspecified (principal)
CPT/HCPCS: 99213

== ENCOUNTER 2024-02-29 09:46 | Outpatient (AMB) | payer MEDICARE, OTHER, SELFPAY ==
[2024-02-29 10:11] VITALS: BP 144/92; PULSE 81; O2SAT 96; BMI 38.1
--- NOTE | 2024-02-29 10:11 | MHC.PC.OV ---
Vital Signs 02/29/24 10:11 Height 5 ft 6 in Weight 236 lb BMI 38.1 BP 144/92 H Blood Pressure Location Lt brachial Position Sitting Pulse 81 Pulse Source Pulse Oximeter Pulse Oximetry (%) 96 Oxygen Delivery Method Room Air Intake Visit Reasons: 6mth f/u Intake Note: She went to an urgent care due to ear pain. They stated that they seen nothing and sent her home. She was seen at ENT soon after and was told she had an ear infection. The provider asked her to tilt her head and she is not sure what he placed into her ear, but it caused her extreme pain. The provider said there was a little wax. Since then she states she can hear from that ear and still is in alot of pain. She is also complaining of bilateral leg swelling. Allergies rofecoxib [From VIOXX] Allergy (Severe, Verified 02/29/24 10:11) ANAPHYLAXIS latex [LATEX] Allergy (Mild, Verified 02/29/24 10:11) RASH;ITCHING acetaminophen [Tylenol-Codeine] Allergy (Unknown, Verified 02/29/24 10:11) hives codeine [Tylenol-Codeine] Allergy (Unknown, Verified 02/29/24 10:11) hives ciprofloxacin [From Cipro] Adverse Reaction (Intermediate, Verified 02/29/24 10:11) diarrhea cyclobenzaprine [From FLEXERIL] Adverse Reaction (Intermediate, Verified 02/29/24 10:11) TACYCARDIA lisinopril Adverse Reaction (Intermediate, Verified 02/29/24 10:11) cough atorvastatin Adverse Reaction (Unknown, Verified 02/29/24 10:11) body aches prednisone Adverse Reaction (Unknown, Verified 02/29/24 10:11) shaking aerosol Allergy (Unknown, Uncoded 02/29/24 10:11) Sneezing, difficulty breathing Vicodin Allergy (Unknown, Uncoded 02/29/24 10:11) heart racing Tobacco use date assessed: 02/29/24 Fall risk assessment: No Falls in past year Last assessed Fall Risk: 02/29/24 Dental Screening Dental Screen Date: 02/29/24 Did you have a dental visit in the last 12 months?: Yes Did you have a dental problem in the last 6 months where you did not have access to dental care?: No Was dental information given to patient?: Patient has dentist HPI 6mth f/u HPI Details 68-year-old obese female with SCRUGGS impaired glucose tolerance hypercholesterolemia hypothyroidism autoimmune gastritis and generalized anxiety disorder last seen in August 2023. Patient is up-to-date with colonoscopy February 2023 declined mammogram before had a normal bone density coming in for follow-up. Recently in the Urgent Center December 2023 for earache diagnosis of upper respiratory tract infection and was given decongestants.. R ear - seen ent Dr. Ferrara - infected R ear , z mandy could not take prednisone had a procedure done now could not hear R ear patient also complains of having leg swelling and has been occurring intermittently bilateral. [facility] Medical History (Updated 02/29/24 @ 10:41 by Ed Macedo MD) Nasal congestion Ear pain Otitis media Onychomycosis Medicare annual wellness visit, initial Fracture of phalanx of index finger Adjustment disorder Impaired glucose tolerance Vitamin D deficiency Hypertension Asthma Obesity (BMI 30-39.9) SCRUGGS (nonalcoholic steatohepatitis) Hypercholesterolemia Hx of diverticulitis of colon Fatty liver Hyperlipidemia Psoriasis Hypothyroidism Trigger finger Surgical History History of esophagogastroduodenoscopy (EGD) History of colonoscopy H/O arthroscopy of right knee Tear of meniscus of left knee H/O knee surgery H/O rhinoplasty Hx of tubal ligation History of appendectomy Family History Father Kidney failure Mother Bladder cancer Social History Housing: House Alcohol intake: never Patient Tobacco Use Status: Former Tobacco user Quit Date: 1991 Tobacco use type: Cigarette Years Smoked: quit 1991 e-Cigarette/Vaping Use: Never Used Second Hand Smoke Exposure: No service: No Current occupational status: retired Cognitive needs: No Hearing needs: No Vision needs: Yes Female Reproductive History Menstrual Age of Menarche: 12 Questionnaire PHQ-9 Over the last 2 weeks, how often have you been bothered by any of the following problems? 1. Little interest or pleasure in doing things: not at all 2. Feeling down, depressed, or hopeless: not at all 3. Trouble falling or staying asleep, or sleeping too much: not at all 4. Feeling tired or having little energy: not at all 5. Poor appetite or overeating: not at all 6. Feeling bad about yourself - or that you are a failure or have let yourself or your family down: not at all 7. Trouble concentrating on things, such as reading the newspaper or watching television: not at all 8. Moving or speaking so slowly that other people could have noticed. Or the opposite - being so fidgety or restless that you have been moving around a lot more than usual: not at all 9. Thoughts that you would be better off or of hurting yourself in some way: not at all Total score: 0 Depression Screening Interpretation: Negative Depression Screening Done: Yes 96731 - PHQ-9 Billing: Yes Source: Developed by Drs. Jose Hendricks, Anika Bain, Beka Casas and colleagues, with an educational walt from [employer]. Thrive Questionnaire Date Thrive assessed: 02/29/24 I am a: Patient What is your living situation today?: I have a steady place to live Within the past 12 months, did the food you bought not last and you didn't have the money to get more?: Never true Within the past 12 months, did you worry whether your food would run out before you got money to buy more?: Never true Do you have trouble paying for medicines?: No Do you have trouble getting transportation to medical appointments?: No Do you have trouble paying your heating and electricity bill?: No Do you have trouble taking care of your child, family member or friend?: No Do you have trouble with day-to-day activities such as bathing, preparing meals, shopping, managing finances, etc.?: No Are you currently unemployed and looking for a job?: No Are you interested in more education?: No Currently or been in a relationship where the following occur: no concerns reported THRIVE Score: 0 AUDIT C Alcohol Use Questionnaire (AUDIT-C) 1. How often do you have a drink containing alcohol?: Never 3. How often do you have six or more drinks on one occasion?: Never Total Score: 0 SHAWN-7 AMB Questionnaire SHAWN-7 Date SHAWN - 7 assessed: 02/29/24 Feeling nervous, anxious, or on edge: 0 = Not at all Not being able to stop or control worryin = Not at all Worrying too much about different things: 0 = Not at all Trouble relaxin = Not at all Being so restless that it is hard to sit still: 0 = Not at all Becoming easily annoyed or irritable: 0 = Not at all Feeling afraid as if something awful might happen: 0 = Not at all Total SHAWN-7 score (0-4 normal; 5-9 mild; 10-14 moderate; 15-21 severe): 0 Source: Developed by Drs. Jose Hendricks, Anika Bain, Beka Casas and colleagues, with an educational walt from [employer]. Physical exam (Primary Care) Vital Signs: Last Vital Signs Pulse 81 02/29/24 10:11 BP 144/92 H 02/29/24 10:11 Pulse Ox 96 02/29/24 10:11 Oxygen Delivery Method Room Air 02/29/24 10:11 BMI result Body Mass Index 38.1 Tobacco/Smoking Status: Tobacco use Status Tobacco use date assessed 02/29/24 02/29/24 10:21 Patient Tobacco Use Status Former Tobacco user 02/29/24 10:21 Tobacco use type Cigarette 02/29/24 10:21 e-Cigarette/Vaping Use Never Used 02/29/24 10:21 PHQ-9: PHQ-9 Score PHQ-9: Total score 0 02/29/24 10:21 Depression Screening Interpretation: Negative Thrive Assessment: Date of Thrive Assessment Date Thrive assessed 02/29/24 02/29/24 10:21 Currently or been in a relationship where the following occur: no concerns reported Const Other: L TM intact, R TM has areas of opaque TM with clear area General: alert; No acute distress Eyes Conjunctivae: conjunctivae normal Resp Auscultation: clear to auscultation bilaterally Cardio Rate: regular rate Rhythm: regular rhythm GI Inspection: Yes normal to inspection Extrem Other: 1+ edema on the leg up-to-date flores area bilaterally General: Yes edema Assessment and Plan Assessment & Plan (1) White coat syndrome with diagnosis of hypertension: Code(s): I10 - Essential (primary) hypertension Plan: Continue to monitor blood pressure (2) Autoimmune gastritis: Code(s): K29.40 - Chronic atrophic gastritis without bleeding Plan: Avoid the foods that causes that usually spicy foods, tomato products, juices, coffee, soda and foods that your sensitive to. After eating do not lie down, allow 3-4 hours before in lie down. And keep the head of bed above 30 degrees to avoid the acid from going up. (3) Hypothyroidism: Code(s): E03.9 - Hypothyroidism, unspecified Qualifiers: Hypothyroidism type: acquired Qualified Code(s): E03.9 - Hypothyroidism, unspecified Plan: Continue with thyroid medication and advised to retest. (4) Hypercholesterolemia: Code(s): E78.00 - Pure hypercholesterolemia, unspecified Plan: Avoid fried foods, chicken skin, eggs, butter margarine, pastries and meat. Be it pork or beef they have a lot of cholesterol LDL goal of less than 130 and triglyceride of less than 150. Patient is on Zetia 10 mg once a day and had muscle aches from atorvastatin (5) Impaired glucose tolerance: Code(s): R73.02 - Impaired glucose tolerance (oral) Plan: Decrease the amount of carbohydrate intake, pasta, bread, rice and potatoes are all sugar and that is aside from all the sweet stuff, remember that fruits are good but they are Sweet also. (6) Obesity (BMI 30-39.9): Code(s): E66.9 - Obesity, unspecified Plan: Diet and exercise (7) SCRUGGS (nonalcoholic steatohepatitis): Code(s): K75.81 - Nonalcoholic steatohepatitis (SCRUGGS) Plan: Low-fat diet and exercise (8) Otitis media, right: Code(s): H66.91 - Otitis media, unspecified, right ear Plan: Antibiotic as well as ear drop sent in (9) Peripheral vascular disease: Code(s): I73.9 - Peripheral vascular disease, unspecified Plan: When sitting down elevate the legs, exercise, and support stockings Orders: Orders Thyroid Stimulating Hormone Today E03.9 - Hypothyroidism, unspecified Free T4 (Free Thyroxine) Today E03.9 - Hypothyroidism, unspecified Lipid Panel Today E78.00 - Pure hypercholesterolemia, unspecified Hemoglobin A1c Today R73.02 - Impaired glucose tolerance (oral) Comprehensive Met. Panel Today R73.02 - Impaired glucose tolerance (oral) B Type Natriuretic Peptide Today I10 - Essential (primary) hypertension Medications: New amoxicillin-pot clavulanate 875-125 mg 1 tab PO BID 14 tabs 0RF H66.91 - Otitis media, unspecified, right ear qthfuova-afjdsirwa-GY 3.5-10,000-1 mg/mL-unit/mL-% 4 drps otic (ear) right Q8H 10 mL 0RF H66.91 - Otitis media, unspecified, right ear Coding Level of Care Code Est Pt Level 4 (34862) Diagnoses White coat syndrome with diagnosis of hypertension I10 Autoimmune gastritis K29.40 Acquired hypothyroidism E03.9 Hypothyroidism type: acquired Hypercholesterolemia E78.00 Impaired glucose tolerance R73.02 Obesity (BMI 30-39.9) E66.9 SCRUGGS (nonalcoholic steatohepatitis) K75.81 Otitis media, right H66.91 Peripheral vascular disease I73.9
== END 2024-02-29 10:42 | disposition home or self-care (01) ==
PROVIDERS: PCP Internal Medicine; Visit Provider Internal Medicine
DX: I10 Essential (primary) hypertension (principal); K29.40 Chronic atrophic gastritis without bleeding; E03.9 Hypothyroidism, unspecified; I73.9 Peripheral vascular disease, unspecified; E78.00 Pure hypercholesterolemia, unspecified; R73.02 Impaired glucose tolerance (oral); E66.9 Obesity, unspecified; K75.81 Nonalcoholic steatohepatitis (NASH); H66.91 Otitis media, unspecified, right ear
CPT/HCPCS: 99214

== ENCOUNTER 2024-03-01 07:04 | Outpatient (REF) | payer MEDICARE, OTHER, SELFPAY ==
[2024-03-01 08:45] LABS: B Type Natriuretic Peptide 21 pg/mL (<100)
[2024-03-01 11:07] LABS: Estimated Average Glucose 120 mg/dL; Hemoglobin A1c % 5.8 % (<6.0)
[2024-03-01 11:12] LABS: Alanine Aminotransferase 80 U/L (0-31); Albumin Level 4.2 g/dL (3.5-5.0); Alkaline Phosphatase 105 U/L (39-117); Anion Gap 11 (12-20); Aspartate Amino Transferase 82 U/L (5-31); Bilirubin Total 0.7 mg/dL (0.0-1.0); Blood Urea Nitrogen 11 mg/dL (9-16); Calcium 9.7 mg/dL (8.4-10.2); Carbon Dioxide 32 mmol/L (22-29); Chloride 105 mmol/L (96-108); Cholesterol 193 mg/dL (<200); Estimated Glomerular Filt Rate > 60; Glucose Random 101 mg/dL (60-115); HDL Cholesterol 33 mg/dL (>40); LDL Cholesterol Calculated 124 mg/dL (<100); Potassium 3.8 mmol/L (3.3-5.1); Sodium 144 mmol/L (135-145); Triglycerides 183 mg/dL (<150)
[2024-03-01 11:33] LABS: Thyroid Stimulating Hormone 0.39 uIU/mL (0.32-4.0)
== END 2024-03-01 07:05 | disposition home or self-care (01) ==
LOC: HO.HMGCLDS 07:04
PROVIDERS: PCP Internal Medicine; Visit Provider Internal Medicine
DX: E03.9 Hypothyroidism, unspecified (principal); E78.00 Pure hypercholesterolemia, unspecified; R73.02 Impaired glucose tolerance (oral); I10 Essential (primary) hypertension
CPT/HCPCS: 36415; 80053; 80061; 83036; 83880; 84439; 84443

== ENCOUNTER 2024-03-21 08:41 | Outpatient (AMB) | payer MEDICARE, OTHER, SELFPAY ==
--- NOTE | 2024-03-21 08:50 | A.OFFPC_ITS ---
Vital Signs 03/21/24 08:51 Height 5 ft 6 in Weight 238 lb BMI 38.4 BP 140/82 H Blood Pressure Location Lt brachial Position Sitting Pulse 85 Pulse Source Pulse Oximeter Pulse Oximetry (%) 98 Oxygen Delivery Method Room Air Intake Visit Reasons: Right Ear Pain, can not hear Supportive Employment Case Manager Required: No Allergies rofecoxib [From VIOXX] Allergy (Severe, Verified 03/21/24 08:55) ANAPHYLAXIS latex [LATEX] Allergy (Mild, Verified 03/21/24 08:55) RASH;ITCHING acetaminophen [Tylenol-Codeine] Allergy (Unknown, Verified 03/21/24 08:55) hives codeine [Tylenol-Codeine] Allergy (Unknown, Verified 03/21/24 08:55) hives ciprofloxacin [From Cipro] Adverse Reaction (Intermediate, Verified 03/21/24 08:55) diarrhea cyclobenzaprine [From FLEXERIL] Adverse Reaction (Intermediate, Verified 03/21/24 08:55) TACYCARDIA lisinopril Adverse Reaction (Intermediate, Verified 03/21/24 08:55) cough atorvastatin Adverse Reaction (Unknown, Verified 03/21/24 08:55) body aches prednisone Adverse Reaction (Unknown, Verified 03/21/24 08:55) shaking aerosol Allergy (Unknown, Uncoded 03/21/24 08:55) Sneezing, difficulty breathing Vicodin Allergy (Unknown, Uncoded 03/21/24 08:55) heart racing Tobacco use date assessed: 03/21/24 Fall risk assessment: No Falls in past year Last assessed Fall Risk: 03/21/24 Dental Screening Dental Screen Date: 02/29/24 HPI Right Ear Pain, can not hear HPI Details 68-year-old obese female with white coat syndrome autoimmune gastritis hypothyroidism hypercholesterolemia impaired glucose tolerance Dixon coming in for follow-up. Patient at that time had right ear pain treated as otitis media. patient is here for follow-up seen in 02/29/2024 PAtient continues to have n o hearing R ear [facility] Medical History (Updated 03/21/24 @ 09:17 by Ed Macedo MD) Nasal congestion Ear pain Otitis media Onychomycosis Medicare annual wellness visit, initial Fracture of phalanx of index finger Adjustment disorder Impaired glucose tolerance Vitamin D deficiency Hypertension Asthma Obesity (BMI 30-39.9) DIXON (nonalcoholic steatohepatitis) Hypercholesterolemia Hx of diverticulitis of colon Fatty liver Hyperlipidemia Psoriasis Hypothyroidism Trigger finger Surgical History History of esophagogastroduodenoscopy (EGD) History of colonoscopy H/O arthroscopy of right knee Tear of meniscus of left knee H/O knee surgery H/O rhinoplasty Hx of tubal ligation History of appendectomy Family History Father Kidney failure Mother Bladder cancer Social History Housing: House Alcohol intake: never Patient Tobacco Use Status: Former Tobacco user Quit Date: 1991 Tobacco use type: Cigarette Years Smoked: quit 1991 e-Cigarette/Vaping Use: Never Used Second Hand Smoke Exposure: No service: No Current occupational status: retired Cognitive needs: No Hearing needs: No Vision needs: Yes Female Reproductive History Menstrual Age of Menarche: 12 Questionnaire Thrive Questionnaire Date Thrive assessed: 02/29/24 AUDIT C Alcohol Use Questionnaire (AUDIT-C) 1. How often do you have a drink containing alcohol?: Never 3. How often do you have six or more drinks on one occasion?: Never Total Score: 0 SHAWN-7 AMB Questionnaire SHAWN-7 Date SHAWN - 7 assessed: 02/29/24 Source: Developed by Drs. Jose Hendricks, Anika Bain, Beka Casas and colleagues, with an educational walt from [employer]. Physical exam (Primary Care) Vital Signs: Last Vital Signs Pulse 85 03/21/24 08:51 BP 140/82 H 03/21/24 08:51 Pulse Ox 98 03/21/24 08:51 Oxygen Delivery Method Room Air 03/21/24 08:51 BMI result Body Mass Index 38.4 Tobacco/Smoking Status: Tobacco use Status Tobacco use date assessed 03/21/24 03/21/24 08:51 Patient Tobacco Use Status Former Tobacco user 03/21/24 08:51 Tobacco use type Cigarette 03/21/24 08:51 e-Cigarette/Vaping Use Never Used 03/21/24 08:51 Thrive Assessment: Date of Thrive Assessment Date Thrive assessed 02/29/24 03/21/24 08:51 Const Other: R ear , no trafgal tenderness, no swelling of wall but TM is distorted with opacity of the wall in area Assessment and Plan Assessment & Plan (1) Right ear pain: Code(s): H92.01 - Otalgia, right ear (2) Hearing loss in right ear: Code(s): H91.91 - Unspecified hearing loss, right ear Orders: Referrals Ear/Nose/Throat Referral H91.91 - Unspecified hearing loss, right ear Coding Level of Care Code Est Pt Level 3 (65402) Diagnoses Right ear pain H92.01 Hearing loss in right ear H91.91
[2024-03-21 08:51] VITALS: BP 140/82; PULSE 85; O2SAT 98; BMI 38.4
== END 2024-03-21 09:28 | disposition home or self-care (01) ==
PROVIDERS: PCP Internal Medicine; Visit Provider Internal Medicine
DX: H92.01 Otalgia, right ear (principal); H91.91 Unspecified hearing loss, right ear
CPT/HCPCS: 99213

== ENCOUNTER 2024-10-03 10:07 | Outpatient (AMB) | payer MEDICARE, OTHER, SELFPAY ==
[2024-10-03 10:09] VITALS: BP 136/82; PULSE 71; O2SAT 97; BMI 37.0
--- NOTE | 2024-10-03 10:09 | A.OFFVIS_ITS ---
Intake Vital Signs 10/03/24 10:09 Height 5 ft 6 in Weight 229 lb BMI 37.0 BP 136/82 Blood Pressure Location Lt brachial Position Sitting Pulse 71 Pulse Source Pulse Oximeter Pulse Oximetry (%) 97 Oxygen Delivery Method Room Air Intake Visit Reasons: V G0439 Allergies rofecoxib [From VIOXX] Allergy (Severe, Verified 10/03/24 10:09) ANAPHYLAXIS latex [LATEX] Allergy (Mild, Verified 10/03/24 10:09) RASH;ITCHING acetaminophen [Tylenol-Codeine] Allergy (Unknown, Verified 10/03/24 10:09) hives codeine [Tylenol-Codeine] Allergy (Unknown, Verified 10/03/24 10:09) hives ciprofloxacin [From Cipro] Adverse Reaction (Intermediate, Verified 10/03/24 10:09) diarrhea cyclobenzaprine [From FLEXERIL] Adverse Reaction (Intermediate, Verified 10/03/24 10:09) TACYCARDIA lisinopril Adverse Reaction (Intermediate, Verified 10/03/24 10:09) cough atorvastatin Adverse Reaction (Unknown, Verified 10/03/24 10:09) body aches prednisone Adverse Reaction (Unknown, Verified 10/03/24 10:09) shaking aerosol Allergy (Unknown, Uncoded 10/03/24 10:09) Sneezing, difficulty breathing Vicodin Allergy (Unknown, Uncoded 10/03/24 10:09) heart racing Medication List - Last Reconciled 10/03/24 by Ed Macedo MD [activia yogurt PO] ezetimibe 10 mg PO DAILY fluocinonide 0.05% topical levothyroxine 150 mcg PO QAM 90 days methylcellulose (laxative) (Citrucel) 500 mg PO BID multivitamin,[id number] (Complete Multivitamin tablet) 1 tab PO DAILY HPI SWV G0439 HPI Details 69-year-old obese female with a history of hepatic steatosis hypertension impaired glucose tolerance hypercholesterolemia hypothyroidism generalized anxiety disorder coming in for an annual well visit. Last seen in 04/01/2024. Patient's colonoscopy is up-to-date 03/02/2023, mammogram declined, bone density was last done in 2019 normal. [facility] gastroenterology [facility] Orthopedics [facility] Orthopedics gynecology [facility] noted 9 lb weight loss. QC kinetics helping with knee doing injections of plasma from [facility]. R knee better, PFSH Medical History (Updated 10/03/24 @ 10:37 by Ed Macedo MD) Nasal congestion Ear pain Otitis media Onychomycosis Medicare annual wellness visit, initial Fracture of phalanx of index finger Adjustment disorder Impaired glucose tolerance Vitamin D deficiency Hypertension Asthma Obesity (BMI 30-39.9) SCRUGGS (nonalcoholic steatohepatitis) Hypercholesterolemia Hx of diverticulitis of colon Fatty liver Hyperlipidemia Psoriasis Hypothyroidism Trigger finger Surgical History History of esophagogastroduodenoscopy (EGD) History of colonoscopy H/O arthroscopy of right knee Tear of meniscus of left knee H/O knee surgery H/O rhinoplasty Hx of tubal ligation History of appendectomy Family History Father Kidney failure Mother Bladder cancer Social History Housing: House Alcohol intake: never Patient Tobacco Use Status: Former Tobacco user Tobacco use type: Cigarette Years Smoked: quit 1991 e-Cigarette/Vaping Use: Never Used Second Hand Smoke Exposure: No service: No Current occupational status: retired Cognitive needs: No Hearing needs: No Vision needs: Yes Female Reproductive History Menstrual Age of Menarche: 12 Questionnaire Medicare Wellness Checkup What [age] What gender do you identify with?: female During the past 4 weeks, how much have you been bothered by emotional problems such as feeling anxious, depressed, irritable, sad or downhearted, and blue?: slightly During the past 4 weeks, has your physical & emotional health limited your social activities with family, friends, neighbors, or groups?: moderately During the past 4 weeks, how much bodily pain have you generally had?: moderate pain During the past 4 weeks, was someone available to help you if you needed & wanted help?: yes, a little During the past 4 weeks, what was the hardest physical activity you could do for at least 2 minutes?: light Can you get to places out of walking distance without help? (For eg., can you travel alone on buses, taxis or drive your car?): Yes Can you go shopping for groceries or clothes without someone's help?: Yes Can you prepare your own meals?: Yes Can you do your housework without help?: Yes Because of any health problems, do you need the help of another person with your personal care needs such as eating, bathing, dressing or getting around the house?: No Can you handle your own money without help?: Yes During the past 4 weeks, how would you rate your health in general?: good During the past 4 weeks how have things been going for you?: good & bad parts about equal Are you having difficulties driving your car?: no Do you always fasten your seat belt when you are in a car?: yes, usually During past 4 weeks, have you been bothered by the following: never: Falling or dizzy when standing up, Sexual problems?, Trouble eating well?, Teeth or denture problems? and Problems using the telephone? and sometimes: Tiredness or fatigue? Have you fallen 2 or more times in the past year?: No Are you afraid of falling?: Yes Are you a smoker?: no During the past 4 weeks, how many drinks of wine, beer, or other alcoholic beverages did you have?: no alcohol at all Do you exercise for about 20 minutes 3 or more times a week?: yes, some of the time Have you been given information to help with the following?: yes: Keeping track of your medications? and no: Hazards in your house that might hurt you? How often do you have trouble taking medicines the way you have been told to take them?: I always take medicine as prescribed How confident are you that you can control & manage most of your health problems?: very confident What is your race?: or origin or descent PHQ-9 Over the last 2 weeks, how often have you been bothered by any of the following problems? 1. Little interest or pleasure in doing things: nearly every day 2. Feeling down, depressed, or hopeless: several days 3. Trouble falling or staying asleep, or sleeping too much: several days 4. Feeling tired or having little energy: several days 5. Poor appetite or overeating: several days 6. Feeling bad about yourself - or that you are a failure or have let yourself or your family down: not at all 7. Trouble concentrating on things, such as reading the newspaper or watching television: not at all 8. Moving or speaking so slowly that other people could have noticed. Or the opposite - being so fidgety or restless that you have been moving around a lot more than usual: not at all 9. Thoughts that you would be better off or of hurting yourself in some way: not at all Total score: 7 Depression Screening Interpretation: Positive Depression Screening Done: Yes 39072 - PHQ-9 Billing: Yes Source: Developed by Drs. Jose Hendricks, Anika Bain, Beka Casas and colleagues, with an educational walt from [employer]. Review of Systems Const Denies poor appetite and Denies weakness Eyes Denies no additional complaints ENT Reports Normal hearing present, Denies dizziness, Denies nasal congestion, Denies tinnitus and Denies sore throat Card Denies chest pain, Denies syncope, Denies rapid heart rate and Denies dyspnea Resp Denies cough and Denies dyspnea GI Denies change in stool character, Reports constipation, Denies diarrhea, Denies nausea and Denies vomiting Denies urinary frequency, Denies difficulty voiding and Denies dysuria Neuro Reports Normal hearing present, Denies confusion, Denies dizziness, Denies syncope and Denies weakness Psych Denies confusion Physical Exam Vital Signs: Last Vital Signs Pulse 71 10/03/24 10:09 BP 136/82 10/03/24 10:09 Pulse Ox 97 10/03/24 10:09 Oxygen Delivery Method Room Air 10/03/24 10:09 BMI result Body Mass Index 37.0 Const General: No confusion Orientation/consciousness: No confusion HEENT Head: Yes normocephalic Ears: external ears normal and TM's normal bilaterally Face and sinus: Yes normal facial exam Mouth: moist mucous membranes Throat: Yes tonsils normal Eyes Conjunctivae: conjunctivae normal Pupils: Equal, round and reactive pupils present and Pupil accommodation reflex normal Direct Ophthalmoscopy: normal light reflex Neck Neck: No lymphadenopathy Thyroid: Thyroid normal Chest Chest palpation & inspection: normal inspection of the chest Resp Effort & Inspection: normal respiratory effort and no audible wheezes Auscultation: clear to auscultation bilaterally, no crackles, no wheezes and lung sounds not diminished Cardio Rate: regular rate Rhythm: regular rhythm Peripheral pulses: radial pulses present and dorsalis pedis present GI Palpation (GI): no masses Auscultation: normal bowel sounds and normoactive bowel sounds Rectal Exam - Female: deferred Skin General skin exam: no rashes or lesions noted Rashes: no rashes Neuro General: No confusion Cranial nerves: Yes Equal, round and reactive pupils present and Yes Normal hearing present Cognition (Neuro): normal cognition Gait exam (Neuro): Normal gait present Motor exam (neuro): 5/5 motor strength present throughout Deep tendon reflexes (DTR's): Right brachioradialis reflex intensity grade: 2+, Left brachioradialis reflex intensity grade: 2+, Right patellar reflex intensity grade: 2+ and Left patellar reflex intensity grade: 2+ Extrem General: No edema Immunizations pneumoc 20-anisha conj-dip cr(PF) 0.5 mL IM syringe Performing Provider: Ed Macedo MD Performing Location: [facility] Administered by: Winsome Stratton CMA on 10/03/24 10:52 Dose Route Admin Location Dispensed Lot Number Expiration Date NDC Clinical Nutritionist 0.5 mL IM Left Deltoid 0.5 mL [id number] 11/13/25 [employer] VIS Given Date VIS Provided VIS Publication Date 10/03/24 Single Vaccine 21 Eligibility Eligibility Date Funding Source Not [place] Eligible 10/03/24 Private Assessment & Plan Assessment & Plan (1) Annual wellness visit: Code(s): Z00.00 - Encounter for general adult medical examination without abnormal findings Plan: Patient is advised to eat healthy, keep well hydrated, keep active and have adequate sleep. (2) SCRUGGS (nonalcoholic steatohepatitis): Code(s): K75.81 - Nonalcoholic steatohepatitis (SCRUGGS) Plan: Low-fat diet and exercise (3) Obesity (BMI 30-39.9): Code(s): E66.9 - Obesity, unspecified Plan: Continue with diet and exercise (4) Hypertension: Comment: Coronary angiography February 2013 unremarkable Code(s): I10 - Essential (primary) hypertension Qualifiers: Hypertension type: essential hypertension Qualified Code(s): I10 - Essential (primary) hypertension Plan: Continue with blood pressure medication. Decrease salt intake and exercise continuing to monitor (5) Impaired glucose tolerance: Code(s): R73.02 - Impaired glucose tolerance (oral) Plan: Decrease the amount of carbohydrate intake, pasta, bread, rice and potatoes are all sugar and that is aside from all the sweet stuff, remember that fruits are good but they are Sweet also. (6) Hypercholesterolemia: Code(s): E78.00 - Pure hypercholesterolemia, unspecified Plan: Avoid fried foods, chicken skin, eggs, butter margarine, pastries and meat. Be it pork or beef they have a lot of cholesterol LDL goal of less than 130 and triglyceride of less than 150 patient is on Zetia and can not tolerate atorvastatin (7) Hypothyroidism: Code(s): E03.9 - Hypothyroidism, unspecified Qualifiers: Hypothyroidism type: acquired Qualified Code(s): E03.9 - Hypothyroidism, unspecified Plan: Continue with thyroid medication (8) Generalized anxiety disorder: Comment: decline any referral for counselling 08/2021 Code(s): F41.1 - Generalized anxiety disorder Plan: Stable (9) Screening for osteoporosis: Code(s): Z13.820 - Encounter for screening for osteoporosis Plan: Bone density requested (10) Psoriasis: Code(s): L40.9 - Psoriasis, unspecified Plan: prescription refill for betamethasone and calcipotriene Orders: Orders Complete Blood Count Auto Diff Today E03.9 - Hypothyroidism, unspecified Vitamin B12 and Folate Today E03.9 - Hypothyroidism, unspecified Erythrocyte Sedimentation Rate Today E03.9 - Hypothyroidism, unspecified Comprehensive Met. Panel Today E03.9 - Hypothyroidism, unspecified Free T4 (Free Thyroxine) Today E03.9 - Hypothyroidism, unspecified Thyroid Stimulating Hormone Today E03.9 - Hypothyroidism, unspecified Lipid Panel Today E03.9 - Hypothyroidism, unspecified, E78.00 - Pure hypercholesterolemia, unspecified C Reactive Protein Today E03.9 - Hypothyroidism, unspecified UA CC w/rflx Micro + Cult Today E03.9 - Hypothyroidism, unspecified, R30.0 - Dysuria XR DEXA axial skeleton Today M81.0 - Age-related osteoporosis without current pathological fracture, Z13.820 - Encounter for screening for osteoporosis Pneumococcal 20 Immunization Today Z23 - Encounter for immunization Medications: New calcipotriene 0.005% rub in gently and completely 1 appl topical BEDTIME 120 grams 0RF L40.9 - Psoriasis, unspecified betamethasone, augmented 0.05 % 1 appl topical DAILY PRN 45 grams 0RF skin irritation L40.9 - Psoriasis, unspecified Quality Reporting (2019) Depression/Bipolar (159/160/161/177) PHQ-9: Total score: 7 Coding Level of Care Code Medicare Subsequent (G0439) Diagnoses Annual wellness visit Z00.00 SCRUGGS (nonalcoholic steatohepatitis) K75.81 Obesity (BMI 30-39.9) E66.9 Essential hypertension I10 Hypertension type: essential hypertension Impaired glucose tolerance R73.02 Hypercholesterolemia E78.00 Acquired hypothyroidism E03.9 Hypothyroidism type: acquired Generalized anxiety disorder F41.1 Screening for osteoporosis Z13.820 Psoriasis L40.9 Additional Codes PHQ-9 - 24586 - PHQ-9 Billing: Yes ([id number])
== END 2024-10-03 10:59 | disposition home or self-care (01) ==
PROVIDERS: PCP Internal Medicine; Visit Provider Internal Medicine
DX: Z00.00 Encounter for general adult medical examination without abnormal findings (principal); K75.81 Nonalcoholic steatohepatitis (NASH); E66.9 Obesity, unspecified; I10 Essential (primary) hypertension; R73.02 Impaired glucose tolerance (oral); E78.00 Pure hypercholesterolemia, unspecified; E03.9 Hypothyroidism, unspecified; F41.1 Generalized anxiety disorder; Z13.820 Encounter for screening for osteoporosis; L40.9 Psoriasis, unspecified; Z23 Encounter for immunization

== ENCOUNTER → 2024-10-03 10:07 | Outpatient (BNVA) | payer MEDICARE, OTHER, SELFPAY | PROVIDERS: PCP Internal Medicine; Visit Provider Internal Medicine | DX: Z00.00 Encounter for general adult medical examination without abnormal findings (principal); Z23 Encounter for immunization; K75.81 Nonalcoholic steatohepatitis (NASH); E66.9 Obesity, unspecified; I10 Essential (primary) hypertension; R73.02 Impaired glucose tolerance (oral); E78.00 Pure hypercholesterolemia, unspecified; E03.9 Hypothyroidism, unspecified; F41.1 Generalized anxiety disorder; L40.9 Psoriasis, unspecified | CPT/HCPCS: 90471; 90677; 96127 ==

== ENCOUNTER 2024-11-15 10:12 | Outpatient (REF) | payer MEDICARE, OTHER, SELFPAY ==
--- NOTE | ~2024-11-15 | MM_ITS ---
EXAMINATION: Dual-Energy X-ray Absorptiometry - Bone Density Study HISTORY: Estrogen deficiency TECHNIQUE: Smackages Dual energy absorptiometry (DEXA) of the lumbar spine, total left hip, and femoral neck was performed. COMPARISON: Comparison is made with the prior examination dated 07/01/2020. FINDINGS: The bone mineral density of the lumbar spine is 1.583 with a T-score of 3.4, and a Z-score of 3.9. This represents a BMD change of -0.6% compared to the prior exam. This is not statistically significant. The bone mineral density of the left total hip is 1.381 with a T-score of 3.0, and a Z-score of 3.6. This represents BMD change of -1.3% compared to the prior exam. This is not statistically significant. The bone mineral density of the left femoral neck is 1.258 with a T-score of 2.5, and a Z-score of 1.6. This represents BMD change of -2.9% compared to the prior exam. FRACTURE RISK: The FRAX index suggests a ten year probability of major osteoporotic fracture of 2.6%, and of hip fracture 0.0%. MM/XR DEXA axial skeleton IMPRESSION: Based on bone mineral density, the diagnosis is consistent with normal bone mineral density. All bone density values are in grams per centimeter squared. At this facility, the least significant change in BMD with 95% confidence is 0.022 at the lumbar spine, 0.027 at the hip, and 0.023 at the distal 1/3 radius. Electronically signed by: Jose Bearden MD 11/19/2024 09:48 AM EST
--- OUTSIDE RECORDS SUMMARY | 2024-11-15 11:28 | XMS_ITS ---
Author Name [facility] Organization Unknown History of Medication Use Medication Directions Dispensed Refills Start Date End Date [facility] ezetimibe 10 mg tablet TAKE 1 TABLET BY MOUTH DAILY 06/08/2023 active Purelax 17 gram/dose oral powder 238 G ORALLY ONCE FOR 1 DAY TAKE DIRECTED BY MOUTH THE DAY BEFORE YOUR PROCEDURE. 06/08/2023 active levothyroxine 150 mcg tablet TAKE 1 TABLET BY MOUTH EVERY MORNING 06/08/2023 active doxycycline hyclate 100 mg tablet TAKE 1 TABLET BY MOUTH 2 TIMES A DAY FOR 21 DAYS 06/08/2023 active lidocaine (PF) 10 mg/mL (1 %) injection solution Take 2 mL by injection route. 06/08/2023 active lisinopril 5 mg tablet TAKE 1 TABLET BY MOUTH DAILY 06/08/2023 active levothyroxine 150 mcg tablet TAKE 1 TABLET BY MOUTH EVERY MORNING 06/08/2023 active fluticasone propionate 50 mcg/actuation nasal spray,suspension SPRAY 1 SPRAY(S) (NASAL) 2 TIMES PER DAY IN EACH NOSTRIL FOR ALLERGY SYMPTOMS 06/08/2023 active Kenalog 40 mg/mL suspension for injection Take 1.5 mL by injection route. 06/08/2023 active Gentle Laxative (bisacodyl) 5 mg tablet,delayed release PLEASE SEE ATTACHED FOR DETAILED DIRECTIONS 06/08/2023 active silver sulfadiazine 1 % topical cream APPLY SMALL AMOUNT TO THE WOUND ONCE DAILY BEFORE DRESSING WITH BANDAID 06/08/2023 active docusate sodium 100 mg capsule TAKE 2 CAPSULES BY MOUTH AT BEDTIME 06/08/2023 active erythromycin 5 mg/gram (0.5 %) eye ointment APPLY 1 APPLICATION (OPHTHALMIC (EYE)) 4 TIMES PER DAY FOR 7 DAYS 1CM RIBBON TO CONJUNTIVAL SAC 06/08/2023 active prednisone 50 mg tablet TAKE 1 TABLET BY MOUTH EVERY MORNING FOR 3 DAYS 06/08/2023 active fexofenadine 180 mg tablet TAKE 1 TABLET (ORAL) 1 TIME PER DAY FOR ITCHING OR ALLERGY SYMPTOMS 06/08/2023 active Fiber Therapy (methylcellulose) 500 mg tablet TAKE 1 CAPLET BY MOUTH TWICE DAILY 06/08/2023 active Problems Problem Status Onset Date Problem Type Date of Resoluti on Source Osteoarthritis of right knee joint active 2023-06-06 ProblemAct ENS_AONECT
--- OUTSIDE RECORDS SUMMARY | 2024-11-15 11:28 | XMS_ITS | Continuity of Care Document ---
Author Organization [place] - [facility], [facility] Address [address] [place] [address] Assessment Encounter Date Assessment Date Assessment LastModified by Organization Details LastModified Time 10/14/2024 10/14/2024 69 yo F with a history of allergies and right ear tube presents for hearing loss. She previously had acute loss in the right ear with pain which has since improved. There is some scar tissue on the right. Audiogram showed symmetric mild HF loss. She may follow-up as needed if symptoms recur. [email or web address] Not available 10/20/2024 13:29:30 Plan of Treatment Reminders Order Date Submit Date Provider Last Modified By Organization Details Last Modified Time Details Appointments None record ed. Lab None record ed. Referral None record ed. Procedures None record ed. Surgeries None record ed. Imaging None record ed. Medication Orders None record ed. Patient TargetsNo targets recorded. Patient InstructionsNo instructions recorded. Reason for Referral None Reported. Results Created Date Observation Date Name Description Value Unit Range Abnormal Flag Note LastModifiedBy Organization Detail LastModifiedTime 10/14/20 24 audio gram No observ ation record ed. BARCODE Not Available 2023 11:54:33 Result Notes None recorded. Problems Name Problem SNOMED Code Status Onset Date Resolution Date Notes Provider Name and Address Organization Details Recorded Time Sensorineural hearing loss of bilateral ears 471772729 Active 2023 FÉLIX SANTA [address], [address] - [facility] 10:28:18 Problem Notes None recorded. Procedures Surgical History Date Name Laterality Status Provider Name and Address Organization Details Recorded Time 10/14/2024 Comp Audio with Tymps (54765 & 91160) completed ROSA HERRERA, AUD 100 [facility] [address], [place], [address], [place] - [facility] 10/14/2024 10:28:13 Imaging Results None recorded. Procedure Notes None recorded. Medical Equipment None Reported. Allergies No known drug allergies Medications Name Sig Start Date Stop Date Status Note LastModified by Organization Details LastModified Time azithromyci n 250 mg tablet TAKE 2 TABLETS BY MOUTH TODAY, THEN TAKE 1 TABLET DAILY FOR 4 DAYS DIRECTED 10/14 completed Not Available Not Available Not Available levothyroxi ne 150 mcg tablet TAKE 1 TABLET BY MOUTH EVERY MORNING active Not Available Not Available No t Available betamethaso ne, augmented 0.05 % topical ointment APPLY TOPICALLY DAILY NEEDED FOR SKIN IRRITATIO N active Not Available Not Available No t Available methylpredn isolone 4 mg tablets in a dose pack TAKE 6 TABLETS ON DAY 1 DIRECTED ON PACKAGE AND DECREASE BY 1 TAB EACH DAY FOR A TOTAL OF 6 DAYS 10/14 completed Not Available Not Available Not Available amoxicillin 875 mg-potassiu m clavulanate 125 mg tablet TAKE 1 TABLET BY MOUTH TWICE A DAY 10/14 completed Not Available Not Available Not Available neomycin-po lymyxin-hyd rocort 3.5 mg-10,000 unit/mL-1 % ear drops,susp INSTILL 4 DROPS INTO THE RIGHT EAR EVERY 8 HOURS 10/14 completed Not Available Not Available Not Available ezetimibe 10 mg tablet TAKE 1 TABLET BY MOUTH EVERY DAY active Not Available Not Available No t Available Vitals Date Recorded Body height Body mass index (BMI) Body weight Provider Name and Address Organization Details Last Updated DateTime 10/14/2024 167.64 cm 37.4 kg/m2 066501.43 g Viola Cervantes [place] - [facility] 10/14/2024 10:34:47 Social History None recorded. Functional Status None recorded. Mental Status None recorded. Family History Nothing Reported. Medical History Condition Response Heart Problems Y Arthritis Y Thyroid Problems Y Gynecological HistoryNo gynecological history recorded. Obstetrics History GPAL:G 0 P 0 0 0 0 Past Encounters Encounter ID Performer Location Encounter Start Date Encounter Closed Date Diagnosis/Indication Diagnosis SNOMED-CT Code Diagnosis ICD10 Code [id number] TYRONE LEVY MD [facility] [address] [facility] [place] [address] 10/14/2024 09:59:08 10/14/2024 10:48:17 Sensorineural hearing loss of bilateral ears 324765147 H90.3 [id number] FÉLIX SANTA [facility] [address] [facility] [place] [address] 10/14/2024 09:59:08 10/14/2024 10:48:17 Sensorineural hearing loss of bilateral ears 787153956 H90.3 Health Concerns Section Related Observation LastModified by Organization Detai ls LastModified Time None Recorded Concern Status LastModified by Organization Details LastModified Time None Recorded Payers Encounter Date Sequence Insurance Name Policy Number Policy Sanders Covered Member ID Sanders Member ID Guarantor Name 10/14/2024 2 [facility] [id number] 1 Tati Cervantes [id number] Tati Cervantes 10/14/2024 1 [place]IC[place] [employer] Tati Cervantes [id number] Tati Cervantes Notes Date Note Type Note Provider Name and Address Organization Details Recorded Time 10/14/2024 text/html 69 yo F presents for hearing loss. Had previously lost hearing on the right ear for about 3 months. Went to see an ENT doctor for ear pain, ear was poked, pain better, but had some loss. Then went to [facility] who recommended seeing an ENT in [place]. Does have some tinnitus. At times gets some pain. Some allergies. Uses Navage. No nasal steroids. Has taken zyrtec. Had tube placed on the right years ago. TYRONE LEVY MD [address] [place] [address], [address], [facility] - [facility] 10/20/2024 13:29:39 OBGyn Episode No OBEpisode recorded.
--- OUTSIDE RECORDS SUMMARY | 2024-11-15 11:28 | XMS_ITS | Data Portability ---
Author Organization [place] - [facility], Allergy Address [address] [place] [address] Assessment Encounter Date Assessment Date Assessment LastModified [...] Time Sensorineural hearing loss of bilateral ears 711911221 Active 2023 FÉLIX SANTA [address], [address], [facility] - [facility] 10:28:18 Problem Notes None recorded. Procedures Surgical History Date Name Laterality Status Provider Name and Address Organization Details Recorded Time 10/14/2024 Comp Audio with Tymps (87439 & 55648) completed FÉLIX SANTA 100 [facility] [address], [place], [address], [place] - [facility] 10/14/2024 10:28:13 Imaging Results Imaging Date Name Status LastModified by Organiz ation Details LastModified Time 10/14/2024 audiogram completed BARCODE Information no t available 10/14/2024 11:54:33 Procedure Notes None recorded. Medical Equipment None [...] Updated DateTime 10/14/2024 167.64 cm 37.4 kg/m2 757751.43 g Viola Cervantes [place] - [facility] 10/14/2024 10:34:47 Social History None recorded. Functional Status None recorded. Mental Status None recorded. Family History Nothing Reported. Medical History Condition Response Heart Problems Y Arthritis Y Thyroid Problems Y Gynecological HistoryNo gynecological history recorded. Obstetrics History GPAL:G 0 P 0 0 0 0 Past Encounters Encounter ID Performer Location Encounter Start Date Encounter Closed Date Diagnosis/Indication Diagnosis SNOMED-CT Code Diagnosis ICD10 Code Diagnosis Note [id number] TYRONE LEVY MD [facility] of [address] [address] 10/14/2024 09:59:08 10/14/2024 10:48:17 Sensorineural hearing loss of bilateral ears 851344996 H90.3 Audiologic al evaluation results: Right ear: {{Normal* Normal through 2 kHz Mild M oderate Mo derately-s evere Estefani re Profoun d}} {{hearing hearing. s loping to a mild* slop ing to a moderate s loping to moderately severe slo ping to severe slo ping to profound f lat high frequency low frequency mid frequency cookie bite olson curve}} {{with sen sorineural hearing loss with* cond uctive hearing loss with mixed hearing loss with}} {{excellen t* good fa ir poor no measurable }} word recognitio n. Left ear: {{Normal* Normal through 2 kHz Mild M oderate Mo derately-s evere Estefani re Profoun d}} {{hearing hearing. s loping to a mild* slop ing to a moderate s loping to moderately severe slo ping to severe slo ping to profound f lat high frequency low frequency mid frequency cookie bite olson curve}} {{with sen sorineural hearing loss with* cond uctive hearing loss with mixed hearing loss with}} {{excellen t* good fa ir poor no measurable }} word recognitio n. Tympanomet ry: Right Ear:{{Type A* Type As Type Ad Type C Type C, shallow & rounded Ty pe B Type B with large volume Cou ld not maintain a hermetic seal}} Left Ear:{{Type A* Type As Type Ad Type C Type C, shallow & rounded Ty pe B Type B with large volume Cou ld not maintain a hermetic seal}} [id number] FÉLIX SANTA [facility] of [address] [address] 10/14/2024 09:59:08 10/14/2024 10:48:17 Sensorineural hearing loss of bilateral ears 887085921 H90.3 Audiologic al evaluation results: Right ear: {{Normal* Normal through 2 kHz Mild M oderate Mo derately-s evere Estefani re Profoun d}} {{hearing hearing. s loping to a mild* slop ing to a moderate s loping to moderately severe slo ping to severe slo ping to profound f lat high frequency low frequency mid frequency cookie bite olson curve}} {{with sen sorineural hearing loss with* cond uctive hearing loss with mixed hearing loss with}} {{excellen t* good fa ir poor no measurable }} word recognitio n. Left ear: {{Normal* Normal through 2 kHz Mild M oderate Mo derately-s evere Estefani re Profoun d}} {{hearing hearing. s loping to a mild* slop ing to a moderate s loping to moderately severe slo ping to severe slo ping to profound f lat high frequency low frequency mid frequency cookie bite olson curve}} {{with sen sorineural hearing loss with* cond uctive hearing loss with mixed hearing loss with}} {{excellen t* good fa ir poor no measurable }} word recognitio n. Tympanomet ry: Right Ear:{{Type A* Type As Type Ad Type C Type C, shallow & rounded Ty pe B Type B with large volume Cou ld not maintain a hermetic seal}} Left Ear:{{Type A* Type As Type Ad Type C Type C, shallow & rounded Ty pe B Type B with large volume Cou ld not maintain a hermetic seal}} Health Concerns Section Related Observation LastModified by Organization Detai ls LastModified Time None Recorded Concern Status LastModified by Organization Details LastModified Time None Recorded Advance Directives Directive None Recorded Payers Encounter Date Sequence Insurance Name Policy Number Policy Sanders Covered Member ID Sanders Member ID Guarantor Name 10/14/2024 2 [facility] [id number] 1 Tati Cervantes [id number] Tati Cervantes 10/14/2024 1 MEDICARE [facility]: [employer] Tati Cervantes [id number] Tati Cervantes 10/14/2024 2 [facility] [id number] 1 Tati Cervantes [id number] Tati Cervantes 10/14/2024 1 MEDICARE [place]: [employer] Tati Cervantes [id number] Tati Cervantes Notes Date Note Type Note Provider Name and Address Organization Details Recorded Time 10/14/2024 text/html 69 yo F presents for hearing loss. Had previously lost hearing on the right ear for about 3 months. Went to see an ENT doctor for ear pain, ear was poked, pain better, but had some loss. Then went to [employer] who recommended seeing an ENT in [place]. Does have some tinnitus. At times gets some pain. Some allergies. Uses Navage. No nasal steroids. Has taken zyrtec. Had tube placed on the right years ago. TYRONE LEVY MD [address] [place] [address], [place], [address], [place] - [facility] 10/20/2024 13:29:39 OBGyn Episode No OBEpisode recorded.
--- OUTSIDE RECORDS SUMMARY | 2024-11-15 11:28 | XMS_ITS | Data Portability ---
Author Organization [place] [facility] Madhav Mendoza AONE Felicity Address [address] [facility] [address] [place] [address] Care Team Providers Care Optical Manufacturing Technician Name Role Phone MAU RAADTARA Primary Care Provider Assessment Encounter Date Assessment Date Assessment LastModified by Organization Details LastModified Time 06/06/2023 06/06/2023 Very pleasant 67-year-old female with bilateral knee arthritis symptomatic on the right knee at today's visit. She opted for cortisone injection. After verbal consent was granted by the patient. The procedure was carried on the right knee. The patient tolerated the procedure well. Aftercare instructions were discussed in detail. Follow-up 3 to 6 months time for repeat clinical exam. Should her symptoms not improve or worsen she should contact my office. The patient agrees with the above-noted plan. Indirect care and treatment in conjunction with Dr. Flores Additional treatment plan discussed with the patient in detail included the following; - Provider focused nonsteroidal anti-inflammator y regimen (discussed were the pros, cons, benefits and risks as well as any black box warnings) in patients over 60 years old they should be very cautious in taking these medications due to potential decreased kidney function and or elevated blood pressure. - Analgesic pain medication for pain suppression (discussed were the pros, cons, benefits and risks as well as any black box warnings) - The use of topical pain relieving medication were discussed - The use of ice to decrease inflammation and pain - The use of assistive ambulatory devices for ambulation and fall prevention - Formal specific guided physical therapy program I reviewed my findings at length with the patient today. ??We discussed the nature and etiology of this problem along with current treatment options. We discussed the expected course and outcomes and what to expect. We also discussed risks and benefits. ?? All of their questions were answered today, and there was exhibited understanding and comprehension of all that was discussed. Time Spent: 10 minutes were spent reviewing previous imaging and charting. ??10 minutes were spent obtaining patient history. ??5 minutes were spent on physical exam. ??5??minutes were spent explaining diagnosis and assessment. Today's documentation was made using voice recognition software. This note may contain grammatical errors secondary to the software. Not available 06/06/2023 07:52:18 Plan of Treatment Reminders Order Date Submit Date Provider Last Modified By Organization Details Last Modified Time Details Appointments None recorded. Lab None recorded. Referral None recorded. Procedures None recorded. Surgeries None recorded. Imaging None recorded. Medication Orders Kenalog 40 mg/mL suspension for injection 2022 023 [id number], [address] [place], [address], 3 11:39:36 lidocaine (PF) 10 mg/mL (1 %) injection solution 2022 023 [id number], [address] [place], [address], 3 11:39:36 Patient TargetsNo targets recorded. Patient Instructions Encounter Date Encounter Id Patient Instructions Last Modified By Organization Details Last Modified Time 06/06/2023 You have been provided with a cortisone injection in order to reduce the pain and inflammation that you are experiencing. The injection consists of two medications. Cortisone (an anti-inflammatory that will take 48-72 hours to take effect) and Lidocaine (a numbing agent that will last 2-3 hours). Please note that not everyone will have a lasting response following the injection. PATIENT INSTRUCTIONS Once the Lidocaine wears off, you may have an increase in your pain. I recommend icing the affected area for 20 minutes 3-4 times per day. It is recommended that you refrain from any high level activities using the joint or limb that was injected for approximately 24-48 hours. Normal day-to-day activities are generally not a problem. POSSIBLE SIDE EFFECTS Individuals with dark complexions may experience some skin discoloration locally at the site of the injection. There is the possibility of an increase in discomfort within 48 hours following the injection. This is called a ? flare? . To help minimize the chances of this, please see the post-injection instructions above. There is a less than 1% chance of an infection. If you notice any signs of infection (redness, warmth, drainage, fever greater than 100 degrees) please call our office or contact us through the portal JOHN. Not available 06/06/2023 11:39:33 Reason for Referral None Reported. Problems Name Problem SNOMED Code Status Onset Date Resolution Date Notes Provider Name and Address Organization Details Recorded Time Osteoarthri tis of right knee joint [id number] 00 Active 2022 TALON COX PA-C [address] [facility],[address], [place], [address], [place] [facility] 3 11:38:48 Problem Notes None recorded. Procedures Surgical History Date Name Laterality Status Provider Name and Address Organization Details Recorded Time 06/06/2023 Knee Joint/Burs a Asp & Inj completed TALON COX PA-C [address] [facility] [address], [place], [address], [place] [facility] 06/06/2023 07:51:46 Imaging Results None recorded. Procedure Notes None recorded. Medical Equipment None Reported. Allergies Allergen ID Allergen Name Allergen Category Reaction Reaction Severity Criticality Documentation Date Start Date Code Code System Note Provider Name and Address Organization Details Recorded Time 6505 Latex (substanc e) environme nt,medica tion Not available Not available Not available 06/06/2023 20686 8007 SNOMED Hawa Galarza [facility] [place] [facility] 3 14:20:41 6573 codeine medicatio n Not available Not available Not available 06/08/2023 2670 RxNorm Hawa Galarza [facility], [facility] 3 10:17:01 Medications Name Sig Start Date Stop Date Status Note LastModified by Organization Details LastModified Time silver sulfadiazin e 1 % topical cream APPLY SMALL AMOUNT TO THE WOUND ONCE DAILY BEFORE DRESSING WITH BANDAID active Not Available Not Available No t Available fexofenadin e 180 mg tablet TAKE 1 TABLET (ORAL) 1 TIME PER DAY FOR ITCHING OR ALLERGY SYMPTOMS 06/06 completed Not Available Not Available Not Available Kenalog 40 mg/mL suspension for injection Take 1.5 mL by injection route. 2022 active Not Available Not Available Not Avai lable erythromyci n 5 mg/gram (0.5 %) eye ointment APPLY 1 APPLICATI ON (OPHTHALM IC (EYE)) 4 TIMES PER DAY FOR 7 DAYS 1CM RIBBON TO CONJUNTIV AL SAC 06/06 completed Not Available Not Available Not Available Gentle Laxative (bisacodyl) 5 mg tablet,luz yed release PLEASE SEE ATTACHED FOR DETAILED DIRECTION S 06/06 completed Not Available Not Available Not Available prednisone 50 mg tablet TAKE 1 TABLET BY MOUTH EVERY MORNING FOR 3 DAYS 06/06 completed Not Available Not Available Not Available levothyroxi ne 150 mcg tablet TAKE 1 TABLET BY MOUTH EVERY MORNING active Not Available Not Available No t Available docusate sodium 100 mg capsule TAKE 2 CAPSULES BY MOUTH AT BEDTIME active Not Available Not Available No t Available lisinopril 5 mg tablet TAKE 1 TABLET BY MOUTH DAILY active Not Available Not Available No t Available fluticasone propionate 50 mcg/actuati on nasal spray,suspe nsion SPRAY 1 SPRAY(S) (NASAL) 2 TIMES PER DAY IN EACH NOSTRIL FOR ALLERGY SYMPTOMS 06/06 completed Not Available Not Available Not Available doxycycline hyclate 100 mg tablet TAKE 1 TABLET BY MOUTH 2 TIMES A DAY FOR 21 DAYS 06/06 completed Not Available Not Available Not Available ezetimibe 10 mg tablet TAKE 1 TABLET BY MOUTH DAILY active Not Available Not Available No t Available Fiber Therapy (methylcell ulose) 500 mg tablet TAKE 1 CAPLET BY MOUTH TWICE DAILY 06/06 completed Not Available Not Available Not Available lidocaine (PF) 10 mg/mL (1 %) injection solution Take 2 mL by injection route. 2022 active Not Available Not Available Not Avai lable Purelax 17 gram/dose oral powder 238 G ORALLY ONCE FOR 1 DAY TAKE DIRECTED BY MOUTH THE DAY BEFORE YOUR PROCEDURE . active Not Available Not Available No t Available Vitals Date Recorded Body height Body mass index (BMI) Body weight Provider Name and Address Organization Details Last Updated DateTime 06/06/2023 167.64 cm 37.4 kg/m2 064138.[address] [place] [facility] 06/06/2023 14:22:16 Social History Question Answer Notes LastModified by Organizat ion Details LastModified Time Tobacco Smoking Status Former Smoker Hawa Galarza [place], [place] - [facility] 06/06/2023 14:23:26 What Is Your Level Of Alcohol Consumption? None Information not available 06/06/2023 When Did You Quit Smoking? 15+yearssin todd co[place] Information not available 06/06/2023 Do You Use Any Illicit Or Recreational Drugs? No Information not available 06/06/2023 Do You Or Have You Ever Used Any Other Forms Of Tobacco Or Nicotine? No Information not available 06/06/2023 Sex: Unknown Functional Status None recorded. Mental Status None recorded. Family History Relationship Description Onset Age of this Age Resolved Age Notes LastModified by Organization Details LastModified Time Brother Arthritis Not availabl e 06/06/2023 14:22:29 Brother Hypercholest erolemia Not available 2022 14:23:01 Brother Hypertensive disorder Not available 2022 14:23:09 Mother Arthritis Not available 06/06/2023 14:22:29 Mother Family history of malignant neoplasm Not available 2022 14:22:37 Mother Heart disease Not available 2022 14:22:46 Mother Diabetes mellitus Not available 2022 14:22:50 Mother Hypercholest erolemia Not available 2022 14:23:01 Medical History Condition Response Reflux/GERD Y Hypertension Y Gynecological HistoryNo gynecological history recorded. Obstetrics History GPAL:G 0 P 0 0 0 0 Past Encounters Encounter ID Performer Location Encounter Start Date Encounter Closed Date Diagnosis/Indication Diagnosis SNOMED-CT Code Diagnosis ICD10 Code [id number] MD MATEO Rosenjean pierre [address] [address] 06/06/2023 11:01:40 06/06/2023 11:38:41 Osteoarthritis of right knee joint 8681349975 64698 M17.11 Health Concerns Section Related Observation LastModified by Organization Detai ls LastModified Time None Recorded Concern Status LastModified by Organization Details LastModified Time None Recorded Advance Directives Directive None Recorded Payers Encounter Date Sequence Insurance Name Policy Number Policy Sanders Covered Member ID Sanders Member ID Guarantor Name 06/06/2023 1 MEDICARE [place]: [facility] [employer] Tati Cervantes [id number] Tati Cervantes 06/06/2023 2 [facility] [id number] 1 Tati Cervantes [id number] Tati Cervantes Notes Date Note Type Note Provider Name and Address Organization Details Recorded Time 06/06/2023 text/html R knee. cortison e 10/04/22 by VIKASH This is a pleasant 67-year-old female with a history of bilateral knee arthritis. She has been more symptomatic on the right knee at today's visit. She describes her pain is medial nature gets worse with walking and bending. She denies fevers, chills, flulike symptoms or warmth or swelling of the right knee joint here for evaluation treatment. TALON COX PA-C [address] [place] [address],[place] [address], [place], [address], [place] [facility] 06/06/2023 11:39:57 OBGyn Episode No OBEpisode recorded.
--- OUTSIDE RECORDS SUMMARY | 2024-11-15 11:28 | XMS_ITS | Continuity of Care Document ---
Author Organization [place] - [facility], [facility] Address [address] [place] [address] Assessment No assessment recorded. Plan of Treatment Reminders Order Date Submit [...] Time Sensorineural hearing loss of bilateral ears [id number] Active 2023 FÉLIX SANTA [address], [address], [facility] 10:28:18 Problem Notes None recorded. Procedures Surgical History Date Name Laterality Status Provider Name and Address Organization Details Recorded Time 10/14/2024 Comp Audio with Tymps (58205 & 51888) completed FÉLIX SANTA [address] [place] [address], [phone], [facility] 10/14/2024 10:28:13 Imaging Results None recorded. [...] Updated DateTime 10/14/2024 167.64 cm 37.4 kg/m2 085130.43 g Viola Cervantes [place] - [facility] 10/14/2024 10:34:47 Social History None recorded. Functional Status None recorded. Mental Status None recorded. Family History Nothing Reported. Medical History Condition Response Heart Problems Y Thyroid Problems Y Arthritis Y Gynecological HistoryNo gynecological history recorded. Obstetrics History GPAL:G 0 P 0 0 0 0 Past Encounters Encounter ID Performer Location Encounter Start Date Encounter Closed Date Diagnosis/Indication Diagnosis SNOMED-CT Code Diagnosis ICD10 Code [id number] TYRONE LEVY MD [facility] [address] [place] [address] 10/14/2024 09:59:08 10/14/2024 10:48:17 Sensorineural hearing loss of bilateral ears 785702794 H90.3 [id number] FÉLIX SANTA [facility] [address] [place] [address] 10/14/2024 09:59:08 10/14/2024 10:48:17 Sensorineural hearing loss of bilateral ears [id number] H90.3 Health Concerns Section Related Observation LastModified by Organization Detai ls LastModified Time None Recorded Concern Status LastModified by Organization Details LastModified Time None Recorded Payers Encounter Date Sequence Insurance Name Policy Number Policy Sanders Covered Member ID Sanders Member ID Guarantor Name 10/14/2024 2 [facility] [id number] 1 Tati Morgan Billy [id number] Tati Morgan Billy 10/14/2024 1 [place] [employer] Tati Cervantes [id number] Tati M Billy Notes Date Note Type Note Provider Name and Address Organization Details Recorded Time 10/14/2024 text/html 69 yo F presents for hearing loss. Had previously lost hearing on the right ear for about 3 months. Went to see an ENT doctor for ear pain, ear was poked, pain better, but had some loss. Then went to [employer] who recommended seeing an ENT in [place]. Does have some tinnitus. At times gets some pain. Some allergies. Uses Navage. No nasal steroids. Has taken zyrtec. Had tube placed on the right years ago. TYRONE LEVY MD [address] [place] [address], [place], [address], [facility] - [facility] 10/20/2024 13:29:39 OBGyn Episode No OBEpisode recorded.
== END 2024-11-15 10:13 | disposition home or self-care (01) ==
LOC: HO.MAMMO 10:12
PROVIDERS: PCP Internal Medicine; Visit Provider Internal Medicine
DX: M81.0 Age-related osteoporosis without current pathological fracture (principal)
CPT/HCPCS: 77080

== ENCOUNTER → 2024-11-15 10:30 | Outpatient (BNV) | payer MEDICARE, OTHER, SELFPAY | PROVIDERS: PCP Internal Medicine; Visit Provider Radiology Diagnostic Radiology | DX: Z13.820 Encounter for screening for osteoporosis (principal) | CPT/HCPCS: 77080 ==

== ENCOUNTER 2025-03-26 07:18 | Outpatient (REF) | payer MEDICARE, OTHER, SELFPAY ==
[2025-03-26 09:52] LABS: MANUAL DIFF FLAG NO
[2025-03-26 10:00] LABS: Appearance Urine Clear; Color Urine Yellow; Glucose Urine UA Negative (Negative); Leukocyte Esterase Urine Small (1+) (Negative); Nitrite Urine Negative (Negative); UMIC TRIGGER UACC YES; Urine Blood Negative (Negative); Urine Ketones Negative (Negative); Urine Protein Negative (Neg-Trace)
[2025-03-26 10:03] LABS: Basophils Percent Auto 0.5 % (0-2); Eosinophils Absolute Auto 0.1 X10*3/uL (0.0-0.4); Eosinophils Percent Auto 2.2 % (0-4); Hematocrit 45.4 % (37.0-47.0); Hemoglobin 14.8 g/dl (12.0-16.0); Imm Gran Abs Auto 0.02 X10*3/uL (0.00-0.03); Imm Gran Pct Auto 0.3 % (0.0-0.4); Lymphocytes Absolute Auto 2.3 X10*3/uL (1.2-4.9); Lymphocytes Percent Auto 38.8 % (20-40); Mean Corpuscular HGB Conc 32.6 g/dl (31.0-35.0); Mean Corpuscular Hemoglobin 29.5 pg (27.0-33.0); Mean Corpuscular Volume 90.6 fL (80.0-98.0); Mean Platelet Volume 10.5 fL (9.4-12.3); Monocytes Absolute Auto 0.4 X10*3/uL (0.1-1.2); Monocytes Percent Auto 6.7 % (2-11); Neutrophils Absolute Auto 3.1 x10*3/uL (2.0-8.3); Neutrophils Percent Auto 51.5 % (45-73); Platelet Count 182 X10*3/uL (160-400); Red Blood Count 5.01 X10*6/uL (4.20-5.50); Red Cell Distribution Width 13.5 % (11.0-16.0)
[2025-03-26 10:07] LABS: Bacteria Urine None Seen (None Seen); Hyaline Casts Urine 0-2 /LPF (0-2); RBC Urine 0-2 /HPF (0-2); Squamous Epithelial Cell Urine 0-2 /HPF (0-2); UACC Culture Trigger YES
[2025-03-26 10:40] LABS: Erythrocyte Sedimentation Rate 16 MM/HR (0-20)
[2025-03-26 10:45] LABS: Alanine Aminotransferase 59 U/L (0-31); Albumin Level 4.4 g/dL (3.5-5.0); Alkaline Phosphatase 98 U/L (39-117); Anion Gap 15 (12-20); Aspartate Amino Transferase 62 U/L (5-31); Bilirubin Total 0.9 mg/dL (0.0-1.0); Blood Urea Nitrogen 15 mg/dL (9-16); C Reactive Protein 0.28 mg/dL (< or = 0.50); Calcium 9.8 mg/dL (8.4-10.2); Carbon Dioxide 28 mmol/L (22-29); Chloride 103 mmol/L (96-108); Cholesterol 176 mg/dL (<200); Estimated Glomerular Filt Rate > 60; Free T4 (Free Thyroxine) 1.04 ng/dL (0.71-1.85); Glucose Random 81 mg/dL (60-115); HDL Cholesterol 38 mg/dL (>40); LDL Cholesterol Calculated 106 mg/dL (<100); Potassium 3.9 mmol/L (3.3-5.1); Sodium 142 mmol/L (135-145); Thyroid Stimulating Hormone 0.49 uIU/mL (0.32-4.0); Total Protein 8.4 g/dL (6.5-8.0); Triglycerides 164 mg/dL (<150)
[2025-03-26 11:05] LABS: Folate 12.5 ng/mL (> or = 4.0); Vitamin B12 461 pg/mL (200-900)
== END 2025-03-26 07:19 | disposition home or self-care (01) ==
LOC: HO.HMGCLDS 07:18
PROVIDERS: PCP Internal Medicine; Visit Provider Internal Medicine
DX: E03.9 Hypothyroidism, unspecified (principal); E78.00 Pure hypercholesterolemia, unspecified; R82.90 Unspecified abnormal findings in urine
CPT/HCPCS: 36415; 80053; 80061; 81001; 81003; 82607; 82746; 84439; 84443; 85025; 85652; 86140; 87086

== ENCOUNTER 2025-04-02 10:09 | Outpatient (AMB) | payer MEDICARE, OTHER, SELFPAY ==
[2025-04-02 10:20] VITALS: BP 142/82; PULSE 84; O2SAT 98; BMI 36.6
--- NOTE | 2025-04-02 10:20 | A.OFFPC_ITS ---
Vital Signs 04/02/25 10:20 Height 5 ft 6 in Weight 227 lb BMI 36.6 BP 142/82 H Blood Pressure Location Lt brachial Position Sitting Pulse 84 Pulse Source Pulse Oximeter Pulse Oximetry (%) 98 Oxygen Delivery Method Room Air Intake Visit Reasons: hypothyroid Allergies rofecoxib [From VIOXX] Allergy (Severe, Verified 04/02/25 10:20) ANAPHYLAXIS latex [LATEX] Allergy (Mild, Verified 04/02/25 10:20) RASH;ITCHING acetaminophen [Tylenol-Codeine] Allergy (Unknown, Verified 04/02/25 10:20) hives codeine [Tylenol-Codeine] Allergy (Unknown, Verified 04/02/25 10:20) hives ciprofloxacin [From Cipro] Adverse Reaction (Intermediate, Verified 04/02/25 10:20) diarrhea cyclobenzaprine [From FLEXERIL] Adverse Reaction (Intermediate, Verified 04/02/25 10:20) TACYCARDIA lisinopril Adverse Reaction (Intermediate, Verified 04/02/25 10:20) cough atorvastatin Adverse Reaction (Unknown, Verified 04/02/25 10:20) body aches prednisone Adverse Reaction (Unknown, Verified 04/02/25 10:20) shaking aerosol Allergy (Unknown, Uncoded 04/02/25 10:20) Sneezing, difficulty breathing Vicodin Allergy (Unknown, Uncoded 04/02/25 10:20) heart racing Tobacco use date assessed: 04/02/25 Fall risk assessment: No Falls in past year Last assessed Fall Risk: 04/02/25 Dental Screening Dental Screen Date: 04/02/25 Did you have a dental visit in the last 12 months?: No Did you have a dental problem in the last 6 months where you did not have access to dental care?: No Was dental information given to patient?: Patient has dentist [facility] Medical History (Updated 10/03/24 @ 10:37 by Ed Macedo MD) Nasal congestion Ear pain Otitis media Onychomycosis Medicare annual wellness visit, initial Fracture of phalanx of index finger Adjustment disorder Impaired glucose tolerance Vitamin D deficiency Hypertension Asthma Obesity (BMI 30-39.9) SCRUGGS (nonalcoholic steatohepatitis) Hypercholesterolemia Hx of diverticulitis of colon Fatty liver Hyperlipidemia Psoriasis Hypothyroidism Trigger finger Surgical History History of esophagogastroduodenoscopy (EGD) History of colonoscopy H/O arthroscopy of right knee Tear of meniscus of left knee H/O knee surgery H/O rhinoplasty Hx of tubal ligation History of appendectomy Family History Father Kidney failure Mother Bladder cancer Social History Housing: House Alcohol intake: never Patient Tobacco Use Status: Former Tobacco user Tobacco use type: Cigarette Years Smoked: quit 1991 e-Cigarette/Vaping Use: Never Used Second Hand Smoke Exposure: No service: No Current occupational status: retired Cognitive needs: No Hearing needs: No Vision needs: Yes Female Reproductive History Menstrual Age of Menarche: 12 Questionnaire PHQ-9 Over the last 2 weeks, how often have you been bothered by any of the following problems? 1. Little interest or pleasure in doing things: several days 2. Feeling down, depressed, or hopeless: not at all 3. Trouble falling or staying asleep, or sleeping too much: not at all 4. Feeling tired or having little energy: not at all 5. Poor appetite or overeating: not at all 6. Feeling bad about yourself - or that you are a failure or have let yourself or your family down: not at all 7. Trouble concentrating on things, such as reading the newspaper or watching television: not at all 8. Moving or speaking so slowly that other people could have noticed. Or the opposite - being so fidgety or restless that you have been moving around a lot more than usual: not at all 9. Thoughts that you would be better off or of hurting yourself in some way: not at all Total score: 1 Depression Screening Interpretation: Positive Depression Screening Done: Yes Source: Developed by Drs. Jose Hendricks, Anika Bain, Beka Casas and colleagues, with an educational walt from [employer]. Thrive Questionnaire Date Thrive assessed: 04/02/25 I am a: Patient What is your living situation today?: I have a steady place to live Within the past 12 months, did the food you bought not last and you didn't have the money to get more?: I choose not to answer this question Within the past 12 months, did you worry whether your food would run out before you got money to buy more?: I choose not to answer this question Do you have trouble paying for medicines?: No Do you have trouble getting transportation to medical appointments?: No Do you have trouble paying your heating and electricity bill?: I choose not to answer this question Do you have trouble taking care of your child, family member or friend?: No Do you have trouble with day-to-day activities such as bathing, preparing meals, shopping, managing finances, etc.?: No Are you currently unemployed and looking for a job?: No Are you interested in more education?: No Please select the resources that you would like help with: None Currently or been in a relationship where the following occur: No concerns reported THRIVE Score: 0 AUDIT C Alcohol Use Questionnaire (AUDIT-C) 1. How often do you have a drink containing alcohol?: Never 3. How often do you have six or more drinks on one occasion?: Never Total Score: 0 SHAWN-7 AMB Questionnaire SHAWN-7 Date SHAWN - 7 assessed: 04/02/25 Feeling nervous, anxious, or on edge: 0 = Not at all Not being able to stop or control worryin = Not at all Worrying too much about different things: 0 = Not at all Trouble relaxin = Not at all Being so restless that it is hard to sit still: 0 = Not at all Becoming easily annoyed or irritable: 0 = Not at all Feeling afraid as if something awful might happen: 1 = Several days Total SHAWN-7 score (0-4 normal; 5-9 mild; 10-14 moderate; 15-21 severe): 1 Source: Developed by Drs. Jose Hendricks, Anika Bain, Beka Casas and colleagues, with an educational walt from [employer]. Physical exam (Primary Care) Vital Signs: Last Vital Signs Pulse 84 04/02/25 10:20 BP 142/82 H 04/02/25 10:20 Pulse Ox 98 04/02/25 10:20 Oxygen Delivery Method Room Air 04/02/25 10:20 BMI result Body Mass Index 36.6 Tobacco/Smoking Status: Tobacco use Status Tobacco use date assessed 04/02/25 04/02/25 10:27 Patient Tobacco Use Status Former Tobacco user 04/02/25 10:27 Tobacco use type Cigarette 04/02/25 10:27 e-Cigarette/Vaping Use Never Used 04/02/25 10:27 PHQ-9: PHQ-9 Score PHQ-9: Total score 1 04/02/25 10:40 Depression Screening Interpretation: Positive Thrive Assessment: Date of Thrive Assessment Date Thrive assessed 04/02/25 04/02/25 10:27 Currently or been in a relationship where the following occur: No concerns reported Const General: alert; No acute distress Eyes Conjunctivae: conjunctivae normal Resp Auscultation: clear to auscultation bilaterally Cardio Rate: regular rate Rhythm: regular rhythm GI Inspection: Yes normal to inspection Extrem General: Yes normal to inspection and No edema Coding Level of Care Code Est Pt Level 4 (89225) Complex EM visit Add On G2211 Diagnoses SCRUGGS (nonalcoholic steatohepatitis) K75.81 Obesity (BMI 30-39.9) E66.9 Essential hypertension I10 Hypertension type: essential hypertension Impaired glucose tolerance R73.02 Hypercholesterolemia E78.00 Acquired hypothyroidism E03.9 Hypothyroidism type: acquired Generalized anxiety disorder F41.1 Knee osteoarthritis M17.10 Assessment & Plan Assessment & Plan (1) SCRUGGS (nonalcoholic steatohepatitis): Code(s): K75.81 - Nonalcoholic steatohepatitis (SCRUGGS) Category: Medical Plan: Low-fat diet and exercise (2) Obesity (BMI 30-39.9): Code(s): E66.9 - Obesity, unspecified Category: Medical Plan: Diet and exercise (3) Hypertension: Comment: Coronary angiography February 2013 unremarkable Code(s): I10 - Essential (primary) hypertension Category: Medical Qualifiers: Hypertension type: essential hypertension Qualified Code(s): I10 - Essential (primary) hypertension Plan: Decrease salt intake and exercise. Advised to monitor BP , and record. (had BP meds before but sleeping a lot) (4) Impaired glucose tolerance: Code(s): R73.02 - Impaired glucose tolerance (oral) Category: Medical Plan: Decrease the amount of carbohydrate intake, pasta, bread, rice and potatoes are all sugar and that is aside from all the sweet stuff, remember that fruits are good but they are Sweet also. (5) Hypercholesterolemia: Code(s): E78.00 - Pure hypercholesterolemia, unspecified Category: Medical Plan: Avoid fried foods, chicken skin, eggs, butter margarine, pastries and meat. Be it pork or beef they have a lot of cholesterol presently on Zetia only. (6) Hypothyroidism: Code(s): E03.9 - Hypothyroidism, unspecified Category: Medical Qualifiers: Hypothyroidism type: acquired Qualified Code(s): E03.9 - Hypothyroidism, unspecified Plan: Continue with thyroid medication (7) Generalized anxiety disorder: Comment: decline any referral for counselling 08/2021 Code(s): F41.1 - Generalized anxiety disorder Category: Medical Plan: Stable (8) Knee osteoarthritis: Code(s): M17.10 - Unilateral primary osteoarthritis, unspecified knee Category: Medical Plan: will have plasma injection Plan History of Present Illness The patient is a 69-year-old female presenting with hypertension management. Monitoring of hypertension has been an ongoing aspect of care, with home blood pressure measurements sometimes aligning with controlled levels despite occasional higher readings in clinical settings. She follows up for ongoing essential hypertension management. The patient also has a recorded history of autoimmune gastritis, although no acute issues related to this diagnosis are noted in the current visit. The patient's obesity has been a longstanding concern. The conversation includes encouragement towards maintaining a low-fat diet and incorporating exercise as part of her treatment strategy. In managing hyperlipidemia, the patient sees incremental progress, with noted improvements in recent lipid panels. She continues treatment with Zepia to aid her cholesterol management. Health Maintenance - Regular monitoring of blood pressure at home is advised. - Encouraged adherence to a low-fat diet and regular exercise routine. - Consideration for vaccination discussed, with mention of the shingles vaccine. - Previous colonoscopy up-to-date as of February 2023. Patient refuses further mammogram screening. - Bone density test completed in November 2024. Social History - The patient is advised to follow a low-fat diet as part of her obesity management but reports partial adherence. - Discussions on the benefits of regular exercise as a consistent part of daily routine were held. Review of Systems - Cardiovascular: Denies significant symptoms such as chest pain. - Gastrointestinal: Reports a history of autoimmune gastritis but no current symptoms. - Endocrine: Denies symptoms typically associated with thyroid dysfunction as levels are controlled. - Musculoskeletal: Denies significant joint pain although plasma treatments for unrelated issues were mentioned. Physical Exam Results - Labs: Blood count is normal with no anemia; normal electrolytes; liver function mildly elevated but improved from previous readings. - Tests and Diagnostics: B12, folic acid, and thyroid levels within normal limits; cholesterol levels improved but still slightly elevated; previous bone density normal. Plan The focus will be on maintaining appropriate management for hypertension with continued home monitoring to ensure proper control as confirmed by home readings. There will be a strong emphasis on dietary management and increased physical activity in addressing obesity. Medication continues for hyperlipidemia, with observed positive response. Vaccination review includes consideration for the shingles vaccine in line with health maintenance. Monitoring of liver enzymes and potential adjustment of medications was discussed. Overall, the patient is encouraged to maintain dietary changes and report any abnormal home blood pressure readings. Patient was informed and verbally consented to the use of an ambient scribe for clinic note documentation during this visit. Discussion Notes I reviewed the importance of consistent home blood pressure monitoring with the patient. We discussed the benefits of lifestyle modifications, particularly with adherence to a low-fat diet and regular exercise, to manage hypertension and obesity. I addressed the gradual improvement noted in her lipid profile and the necessity to maintain her current medication regimen, Zepia, for hyperlipidemia. Vaccination recommendations were reviewed, emphasizing consideration for the shingles vaccine. The patient was informed of monitoring requirements for liver enzyme levels and was reassured that current findings are being addressed. Encouragement was provided to continue with lifestyle modifications and routine health maintenance activities. Patient Instructions - Monitor your blood pressure at home and write down the numbers. - Follow a low-fat diet and try to exercise regularly. - Continue taking your cholesterol medication as prescribed. - Consider getting the shingles vaccine; discuss with your pharmacist or healthcare provider. - Keep track of any changes in your health and report any concerns. - Make sure to drink plenty of water and make healthier food choices. - Remember the importance of continued lifestyle improvements in managing your health.
--- OUTSIDE RECORDS SUMMARY | 2025-04-02 11:39 | XMS_ITS | Data Portability ---
Author Organization [place] - [facility], Allergy Address [address] [address] Assessment Encounter Date Assessment Date Assessment LastModified [...] Time Sensorineural hearing loss of bilateral ears [id number] Active 2023 FÉLIX SANTA [address], [address] , [facility] - [facility] 10:28:18 Problem Notes None recorded. Procedures Surgical History Date Name Laterality Status Provider Name and Address Organization Details Recorded Time 10/14/2024 Comp Audio with Tymps - 16576 & 89330 completed ROSA HERRERA, AUD 100 [facility], [place], [address], [place] - [facility] 10/14/2024 10:28:13 Imaging Results Imaging Date Name Status LastModified by Organiz atformerly [facility] Details LastModified Time 10/14/2024 audiogram completed BARCODE [...] Updated DateTime 10/14/2024 167.64 cm 37.4 kg/m2 504228.43 g Viola Cervantes [place] - [facility] 10/14/2024 10:34:47 Social History None recorded. [...] SNOMED-CT Code Diagnosis ICD10 Code Diagnosis Note [id number] TYRONE LEVY MD [facility] [address] [address] 10/14/2024 09:59:08 10/14/2024 10:48:17 Sensorineural hearing loss of bilateral ears [id number] H90.3 Audiologic al evaluation results: Right ear: [...] Cou ld not maintain a hermetic seal}} [id number] FÉLIX SANTA [facility] of [address] [address] 10/14/2024 09:59:08 10/14/2024 10:48:17 Sensorineural hearing loss of bilateral ears [id number] H90.3 Audiologic al evaluation results: Right ear: [...] Recorded Advance Directives Directive None Recorded Payers Insurance Date Sequence Insurance Name Policy Number Policy Sanders Covered Member ID Sanders Member ID Guarantor Name 02/24/2025 2 [employer] [id number] 1 Tati Cervantes [id number] Tati Cervantes 02/24/2025 1 [place]IC[place] [employer] Tati Cervantes [id number] Tati Cervantes Notes Date Note Type Note [...] [facility] who recommended seeing an ENT in [place]. Does have some tinnitus. At times gets some pain. Some allergies. Uses Navage. No nasal steroids. Has taken zyrtec. Had tube placed on the right years ago. TYRONE LEVY MD [address] [place] [address], [place], [address], [facility] - [facility] 10/20/2024 13:29:39 OBGyn Episode No OBEpisode recorded.
--- OUTSIDE RECORDS SUMMARY | 2025-04-02 11:39 | XMS_ITS | Clinical Summary ---
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 0 01/27/2021 Active levothyroxine (SYNTHROID) tablet 150 mcg TAKE 1 TABLET BY MOUTH EVERY DAY IN THE MORNING ON EMPTY STOMACH 0 12/22/2020 Active ciprofloxacin (CIPRO) 500 MG tablet 0 08/26/2021 Active loperamide (IMODIUM) 2 MG capsule 0 08/26/2021 Active metroNIDAZOLE (FLAGYL) 500 MG tablet 0 08/26/2021 Active Active Problems Problem Noted Date Diagnosed Date Postop check 05/18/2021 Family History Medical History Relation Name Comments Diabetes Brother Cancer Mother Diabetes Mother Relation Name Status Comments Brother Mother Social History Tobacco Use Types Packs/Day Years Used Date Smoking Tobacco: Never Assessed Sex and Gender Information Value Date Recorded Sex Assigned at Not on file Gender Identity Not on file Sexual Orientation Not on file Job Start Date Occupation Industry Not on file Not on file Not on file Last Filed Vital Signs Vital Sign Reading Time Taken Comments Blood Pressure - - Pulse - - Temperature - - Respiratory Rate - - Oxygen Saturation - - Inhaled Oxygen Concentration - - Weight 105.7 kg (233 lb) 10/26/2021 9:57 AM EST Height 167.6 cm (5' 6 ) 10/26/2021 9:57 AM EST Body Mass Index 37.61 10/26/2021 9:57 AM EST Plan of Treatment Health Maintenance Due Date Last Done Comments Hepatitis C Screening 1955 COVID-19 Vaccine (#1) 03[birth year]19/1955 Depression Screening 1966 BMI Counseling 1972 Preventative Health Evaluation 1972 DTap / Tdap / Td (1 - Tdap) 1973 Colon Cancer Screening (Colonoscopy) 1999 Breast Cancer Screening (Mammogram) 2004 Shingrix-Zoster Vaccine (1 of 2) 2004 Fall Risk Assessment 2019 Osteoporosis Screening (DEXA Scan) 2019 Pneumococcal Vaccine (1 of 1 - PCV) 2019 Influenza Vaccine (#1) 2024 RSV Adult > 60+ Yrs or Pregn ant (1 - 1-dose 75+ series) 2029 Hepatitis B Vaccines Aged Out No long er eligible based on patient's age to complete this topic RSV Ped < 20 months Aged Out No longe r eligible based on patient's age to complete this topic Care Teams Home Stereo Equipment Installer Relationship Specialty Start Date End Date Ed Macedo MD [address] [place] [address] Dr [address] [facility] [place] [address] PCP - General Internal Medicine 03/02/21
== END 2025-04-02 10:52 | disposition home or self-care (01) ==
LOC: HO.HMCH 10:10
PROVIDERS: PCP Internal Medicine; Visit Provider Internal Medicine
DX: K75.81 Nonalcoholic steatohepatitis (NASH) (principal); E66.9 Obesity, unspecified; I10 Essential (primary) hypertension; Z68.36 Body mass index [BMI] 36.0-36.9, adult; R73.02 Impaired glucose tolerance (oral); E78.00 Pure hypercholesterolemia, unspecified; E03.9 Hypothyroidism, unspecified; F41.1 Generalized anxiety disorder

== ENCOUNTER → 2025-04-02 10:09 | Outpatient (BNVA) | payer MEDICARE, OTHER, SELFPAY | PROVIDERS: PCP Internal Medicine; Visit Provider Internal Medicine | DX: K75.81 Nonalcoholic steatohepatitis (NASH) (principal); E03.9 Hypothyroidism, unspecified; E78.00 Pure hypercholesterolemia, unspecified; R73.02 Impaired glucose tolerance (oral); I10 Essential (primary) hypertension; E66.9 Obesity, unspecified; Z68.36 Body mass index [BMI] 36.0-36.9, adult; F41.1 Generalized anxiety disorder; M17.10 Unilateral primary osteoarthritis, unspecified knee; Z71.3 Dietary counseling and surveillance | CPT/HCPCS: 99212 ==

== ENCOUNTER 2025-07-01 14:48 | Outpatient (AMB) | payer MEDICARE, OTHER, SELFPAY ==
[2025-07-01 15:01] VITALS: BP 136/84; PULSE 92; O2SAT 97; BMI 36.6
--- NOTE | 2025-07-01 15:01 | A.OFFPC_ITS ---
Vital Signs 07/01/25 15:01 Height 5 ft 6 in Weight 227 lb BMI 36.6 BP 136/84 Blood Pressure Location Lt brachial Position Sitting Pulse 92 Pulse Source Pulse Oximeter Pulse Oximetry (%) 97 Oxygen Delivery Method Room Air Intake Visit Reasons: Requesting GI referral for abdomen pain Renovator Machine Operator Required: No Accompanied by: Self / Same As Patient Allergies rofecoxib (From VIOXX) Allergy (Severe, Verified 07/01/25 15:13) ANAPHYLAXIS latex (LATEX) Allergy (Mild, Verified 07/01/25 15:13) RASH;ITCHING acetaminophen (Tylenol-Codeine) Allergy (Unknown, Verified 07/01/25 15:13) hives codeine (Tylenol-Codeine) Allergy (Unknown, Verified 07/01/25 15:13) hives ciprofloxacin (From Cipro) Adverse Reaction (Intermediate, Verified 07/01/25 15:13) diarrhea cyclobenzaprine (From FLEXERIL) Adverse Reaction (Intermediate, Verified 07/01/25 15:13) TACYCARDIA lisinopril Adverse Reaction (Intermediate, Verified 07/01/25 15:13) cough atorvastatin Adverse Reaction (Unknown, Verified 07/01/25 15:13) body aches prednisone Adverse Reaction (Unknown, Verified 07/01/25 15:13) shaking aerosol Allergy (Unknown, Uncoded 07/01/25 15:13) Sneezing, difficulty breathing Vicodin Allergy (Unknown, Uncoded 07/01/25 15:13) heart racing Tobacco use date assessed: 07/01/25 Fall risk assessment: No Falls in past year Last assessed Fall Risk: 07/01/25 Dental Screening Dental Screen Date: 07/01/25 Did you have a dental visit in the last 12 months?: No Did you have a dental problem in the last 6 months where you did not have access to dental care?: No Was dental information given to patient?: No HPI Requesting GI referral for abdomen pain HPI Details 2 weeks LLQ pain chill diarrhea, no bl ood nausea PFSH Medical History (Updated 07/01/25 @ 15:37 by Ed Macedo MD) Nasal congestion Ear pain Otitis media Onychomycosis Medicare annual wellness visit, initial Fracture of phalanx of index finger Adjustment disorder Impaired glucose tolerance Vitamin D deficiency Hypertension Asthma Obesity (BMI 30-39.9) SCRUGGS (nonalcoholic steatohepatitis) Hypercholesterolemia Hx of diverticulitis of colon Fatty liver Hyperlipidemia Psoriasis Hypothyroidism Trigger finger Surgical History History of esophagogastroduodenoscopy (EGD) History of colonoscopy H/O arthroscopy of right knee Tear of meniscus of left knee H/O knee surgery H/O rhinoplasty Hx of tubal ligation History of appendectomy Family History Father Kidney failure Mother Bladder cancer Social History Housing: House Alcohol intake: never Patient Tobacco Use Status: Former Tobacco user Tobacco use type: Cigarette Years Smoked: quit 1991 e-Cigarette/Vaping Use: Never Used Second Hand Smoke Exposure: No service: No Current occupational status: retired Cognitive needs: No Hearing needs: No Vision needs: Yes Female Reproductive History Menstrual Age of Menarche: 12 Questionnaire PHQ-9 Over the last 2 weeks, how often have you been bothered by any of the following problems? 1. Little interest or pleasure in doing things: several days 2. Feeling down, depressed, or hopeless: not at all 3. Trouble falling or staying asleep, or sleeping too much: not at all 4. Feeling tired or having little energy: not at all 5. Poor appetite or overeating: not at all 6. Feeling bad about yourself - or that you are a failure or have let yourself or your family down: not at all 7. Trouble concentrating on things, such as reading the newspaper or watching television: not at all 8. Moving or speaking so slowly that other people could have noticed. Or the opposite - being so fidgety or restless that you have been moving around a lot more than usual: not at all 9. Thoughts that you would be better off or of hurting yourself in some way: not at all Total score: 1 Depression Screening Interpretation: Positive Depression Screening Done: Yes Source: Developed by Drs. Jose Hendricks, Anika Bain, Beka Casas and colleagues, with an educational walt from [employer]. Thrive Questionnaire Date Thrive assessed: 07/01/25 I am a: Patient What is your living situation today?: I have a steady place to live Within the past 12 months, did the food you bought not last and you didn't have the money to get more?: I choose not to answer this question Within the past 12 months, did you worry whether your food would run out before you got money to buy more?: I choose not to answer this question Do you have trouble paying for medicines?: No Do you have trouble getting transportation to medical appointments?: No Do you have trouble paying your heating and electricity bill?: I choose not to answer this question Do you have trouble taking care of your child, family member or friend?: No Do you have trouble with day-to-day activities such as bathing, preparing meals, shopping, managing finances, etc.?: No Are you currently unemployed and looking for a job?: No Are you interested in more education?: No Please select the resources that you would like help with: None Currently or been in a relationship where the following occur: No concerns reported THRIVE Score: 0 AUDIT C Alcohol Use Questionnaire (AUDIT-C) 1. How often do you have a drink containing alcohol?: Never 3. How often do you have six or more drinks on one occasion?: Never Total Score: 0 SHAWN-7 AMB Questionnaire SHAWN-7 Date SHAWN - 7 assessed: 07/01/25 Feeling nervous, anxious, or on edge: 0 = Not at all Not being able to stop or control worryin = Not at all Worrying too much about different things: 0 = Not at all Trouble relaxin = Not at all Being so restless that it is hard to sit still: 0 = Not at all Becoming easily annoyed or irritable: 0 = Not at all Feeling afraid as if something awful might happen: 1 = Several days Total SHAWN-7 score (0-4 normal; 5-9 mild; 10-14 moderate; 15-21 severe): 1 Source: Developed by Drs. Jose Hendricks, Anika Bain, Beka Casas and colleagues, with an educational walt from [employer]. Physical exam (Primary Care) Vital Signs: Last Vital Signs Pulse 92 07/01/25 15:01 BP 136/84 07/01/25 15:01 Pulse Ox 97 07/01/25 15:01 Oxygen Delivery Method Room Air 07/01/25 15:01 BMI result Body Mass Index 36.6 Tobacco/Smoking Status: Tobacco use Status Tobacco use date assessed 07/01/25 07/01/25 15:15 Patient Tobacco Use Status Former Tobacco user 07/01/25 15:02 Tobacco use type Cigarette 07/01/25 15:02 e-Cigarette/Vaping Use Never Used 07/01/25 15:02 PHQ-9: PHQ-9 Score PHQ-9: Total score 1 07/01/25 15:15 Depression Screening Interpretation: Positive Thrive Assessment: Date of Thrive Assessment Date Thrive assessed 07/01/25 07/01/25 15:15 Currently or been in a relationship where the following occur: No concerns reported Const General: alert; No acute distress Eyes Conjunctivae: conjunctivae normal Resp Auscultation: clear to auscultation bilaterally Cardio Rate: regular rate Rhythm: regular rhythm GI Other: son no rebound , no guarding, mild LLQ pain Extrem General: Yes normal to inspection and No edema Coding Level of Care Code Est Pt Level 4 (80161) Diagnoses Hypercholesterolemia E78.00 Impaired glucose tolerance R73.02 Acquired hypothyroidism E03.9 Hypothyroidism type: acquired Elevated gastrin level E16.4 Obesity (BMI 30-39.9) E66.9 SCRUGGS (nonalcoholic steatohepatitis) K75.81 LLQ abdominal pain R10.32 Assessment & Plan Assessment & Plan (1) Hypercholesterolemia: Code(s): E78.00 - Pure hypercholesterolemia, unspecified Category: Medical Plan: Avoid fried foods, chicken skin, eggs, butter margarine, pastries and meat. Be it pork or beef they have a lot of cholesterol LDL goal of less than 130 and triglyceride of less than 150 on Zetia 10 mg once a day (2) Impaired glucose tolerance: Code(s): R73.02 - Impaired glucose tolerance (oral) Category: Medical Plan: Decrease the amount of carbohydrate intake, pasta, bread, rice and potatoes are all sugar and that is aside from all the sweet stuff, remember that fruits are good but they are Sweet also. (3) Hypothyroidism: Code(s): E03.9 - Hypothyroidism, unspecified Category: Social Hx Qualifiers: Hypothyroidism type: acquired Qualified Code(s): E03.9 - Hypothyroidism, unspecified Plan: Continue with thyroid medication (4) Elevated gastrin level: Comment: Reviewed patient at findings with Dr. Rico, plan of care discussed Kxyocmg-widrfnpb-dvropv EGD Code(s): E16.4 - Increased secretion of gastrin Category: Medical Plan: Discussed about medications for reflux (5) Obesity (BMI 30-39.9): Code(s): E66.9 - Obesity, unspecified Category: Medical Plan: Diet and exercise (6) SCRUGGS (nonalcoholic steatohepatitis): Code(s): K75.81 - Nonalcoholic steatohepatitis (SCRUGGS) Category: Medical Plan: Low-fat diet and exercise (7) LLQ abdominal pain: Code(s): R10.32 - Left lower quadrant pain Category: Medical Plan History of Present Illness The patient is a 69-year-old female presenting for a follow-up visit. She has a history of hepatic steatosis, hypotension, hypercholesterolemia, hypothyroidism, generalized anxiety disorder, and autoimmune gastritis. Her last colonoscopy was in 2022, and she has declined a mammogram but is up to date with bone density screening. The patient reports a recent onset of left-sided abdominal pain lasting for two weeks, sometimes accompanied by diarrhea and nausea. She denies fever but mentions occasional chills and a dry cough. Her last blood work in March showed normal blood count, electrolytes, and renal function, but elevated liver function tests. Cholesterol levels were noted with triglycerides at 164 mg/dL and LDL at 106 mg/dL. B12, thyroid levels, and urine tests were within normal limits, although some white blood cells were noted in the urine. Health Maintenance - Declined mammogram - Up to date with bone density screening Social History - Exercise: Engages in diet and exercise regimen to manage weight Review of Systems - Gastrointestinal: Reports left-sided abdominal pain for two weeks, sometimes with diarrhea and nausea. Denies fever. - Respiratory: Reports dry cough. Denies shortness of breath. - Genitourinary: Denies dysuria or hematuria. Reports nocturia twice per night. Physical Exam - Abdominal: No significant pain noted during palpation of various quadrants Results - Labs: Normal blood count, electrolytes, and renal function. Elevated liver function tests. Triglycerides at 164 mg/dL, LDL at 106 mg/dL. B12 and thyroid levels within normal limits. Urine test showed some white blood cells. Plan The patient will continue with her current cholesterol management plan, aiming for an LDL goal of less than 130 mg/dL and triglycerides of less than 150 mg/dL, with the use of Onseria 10 mg once daily. For her abdominal pain, a CAT scan of the abdomen will be requested to further investigate the cause, ensuring she is not allergic to contrast. She is advised to maintain a high-fiber diet and stay hydrated to prevent constipation. The patient is encouraged to continue her thyroid medication and to monitor her symptoms closely. Discussion about medications to manage gastric acidity was conducted, although the patient currently does not experience heartburn. Patient was informed and verbally consented to the use of an ambient scribe for clinic note documentation during this visit. Discussion Notes I discussed with the patient the importance of continuing her cholesterol management plan and the goals for LDL and triglycerides. We also talked about the need for a CAT scan to evaluate her abdominal pain, ensuring she is not allergic to contrast. I advised her on dietary modifications, including a high- fiber diet, and the importance of hydration. We reviewed her thyroid medication adherence and discussed options for managing gastric acidity, although she currently does not have heartburn. Patient Instructions - Continue taking Onseria 10 mg daily for cholesterol management. - Maintain a high-fiber diet and drink plenty of water to prevent constipation. - Continue thyroid medication as prescribed. - Monitor for any new symptoms and report them promptly. - Follow up for a CAT scan of the abdomen as scheduled. Orders: Orders CT abdomen pelvis w IV con Today R10.32 - Left lower quadrant pain Blood Urea Nitrogen Today R10.32 - Left lower quadrant pain UA CC w/rflx Micro + Cult Today R10.32 - Left lower quadrant pain, R30.0 - Dysuria Creatinine Today R10.32 - Left lower quadrant pain Complete Blood Count Auto Diff Today R10.32 - Left lower quadrant pain Comprehensive Met. Panel Today R10.32 - Left lower quadrant pain
--- OUTSIDE RECORDS SUMMARY | 2025-07-01 16:11 | XMS_ITS | Clinical Summary ---
Author Organization [facility] Address [address] [place] [address] Care Team Providers Care Director Digital Sales Name Role Phone Ed Macedo MD Primary Care Provider [phone] Allergies No known active allergies Medications Medication [...] 1 - PCV) 2019 Influenza Vaccine (#1) 2025 RSV Adult > 60+ Yrs or Pregn ant (1 - 1-dose 75+ series) 2029 Hepatitis B Vaccines Aged Out No long er eligible based on patient's age to complete this topic RSV Ped < 20 months Aged Out No longe r eligible based on patient's age to complete this topic Care Teams Director Digital Sales Relationship Specialty Start Date End Date Ed Macedo MD [address] [place] [address] [address] [facility] [place] [address] PCP - General Internal Medicine 03/02/21
--- OUTSIDE RECORDS SUMMARY | 2025-07-01 16:11 | XMS_ITS ---
Author Name [facility] Organization Unknown History of Medication Use Medication Directions Dispensed Refills Start Date End Date Stat docusate sodium 100 mg capsule TAKE 2 CAPSULES BY MOUTH AT BEDTIME active doxycycline hyclate 100 mg tablet TAKE 1 TABLET BY MOUTH 2 TIMES A DAY FOR 21 DAYS active erythromycin 5 mg/gram (0.5 %) eye ointment APPLY 1 APPLICATION (OPHTHALMIC (EYE)) 4 TIMES PER DAY FOR 7 DAYS 1CM RIBBON TO CONJUNTIVAL SAC active fluticasone propionate 50 mcg/actuation nasal spray,suspension SPRAY 1 SPRAY(S) (NASAL) 2 TIMES PER DAY IN EACH NOSTRIL FOR ALLERGY SYMPTOMS active lisinopril 5 mg tablet TAKE 1 TABLET BY MOUTH DAILY active Problems Problem Status Onset Date Problem Type Date of Resoluti on Source Osteoarthritis of right knee joint active 2023-06-06 ProblemAct ENS_AONECT Encounters Encounter Type Encounter Reason Primary Diagnosis Location Date Ambulatory [facility] 07/27/2023 Ambulatory [facility] 06/06/2023 Ambulatory [facility] 06/05/2023 Care Team Organization Name Specialty Phone Email Start Date End Da beth [facility] RIAZ LE[facility]N [facility] 10/13/2022 024
== END 2025-07-01 15:43 | disposition home or self-care (01) ==
LOC: HO.HMCH 14:48
PROVIDERS: PCP Internal Medicine; Visit Provider Internal Medicine
DX: E78.00 Pure hypercholesterolemia, unspecified (principal); R73.02 Impaired glucose tolerance (oral); E66.9 Obesity, unspecified; Z68.36 Body mass index [BMI] 36.0-36.9, adult; E03.9 Hypothyroidism, unspecified; E16.4 Increased secretion of gastrin; K75.81 Nonalcoholic steatohepatitis (NASH); R10.32 Left lower quadrant pain

== ENCOUNTER → 2025-07-01 14:48 | Outpatient (BNVA) | payer MEDICARE, OTHER, SELFPAY | PROVIDERS: PCP Internal Medicine; Visit Provider Internal Medicine | DX: R10.32 Left lower quadrant pain (principal); K57.81 Diverticulitis of intestine, part unspecified, with perforation and abscess with bleeding; E78.00 Pure hypercholesterolemia, unspecified; R73.02 Impaired glucose tolerance (oral); E03.9 Hypothyroidism, unspecified; E16.4 Increased secretion of gastrin; E66.9 Obesity, unspecified; Z68.36 Body mass index [BMI] 36.0-36.9, adult; Z71.3 Dietary counseling and surveillance; Z87.891 Personal history of nicotine dependence | CPT/HCPCS: 99212 ==

== ENCOUNTER 2025-07-02 07:22 | Outpatient (REF) | payer MEDICARE, OTHER, SELFPAY ==
--- OUTSIDE RECORDS SUMMARY | 2025-07-02 07:24 | XMS_ITS | Clinical Summary ---
Author Organization [facility] Address [address] [place] [address] Care Team Providers Care Rn Intake Name Role Phone Ed Macedo MD Primary Care Provider [phone] Allergies No known active allergies Medications Medication [...] age to complete this topic Care Teams Rn Intake Relationship Specialty Start Date End Date Ed Macedo MD [address] [place] [address] Dr [address] [facility] [place] [address] PCP - General Internal Medicine 03/02/21
[2025-07-02 10:50] LABS: Appearance Urine Clear; Glucose Urine UA Negative (Negative); PH 6.5 (5.0-9.0); Specific Gravity - Urine 1.025 (1.005-1.025); UMIC TRIGGER UACC YES
[2025-07-02 10:55] LABS: UACC Culture Trigger YES
[2025-07-02 11:10] LABS: MANUAL DIFF FLAG NO
[2025-07-02 11:15] LABS: Hematocrit 45.5 % (37.0-47.0); Hemoglobin 14.7 g/dl (12.0-16.0); Imm Gran Abs Auto 0.02 X10*3/uL (0.00-0.03); Imm Gran Pct Auto 0.3 % (0.0-0.4); Lymphocytes Absolute Auto 2.3 X10*3/uL (1.2-4.9); Mean Corpuscular HGB Conc 32.3 g/dl (31.0-35.0); Mean Corpuscular Hemoglobin 29.7 pg (27.0-33.0); Mean Corpuscular Volume 91.9 fL (80.0-98.0); NRBC Abs Auto 0.000 X10*3/uL (0.0-0.012); NRBC Pct Auto 0.0 /100WBC (0.0-0.2); Platelet Count 229 X10*3/uL (160-400); Red Blood Count 4.95 X10*6/uL (4.20-5.50); White Blood Count 6.1 X10*3/uL (4.8-10.8)
[2025-07-02 11:50] LABS: Alanine Aminotransferase 58 U/L (0-31); Albumin Level 4.6 g/dL (3.5-5.0); Alkaline Phosphatase 99 U/L (39-117); Anion Gap 15 (12-20); Aspartate Amino Transferase 57 U/L (5-31); Blood Urea Nitrogen 15 mg/dL (9-16); Calcium 9.7 mg/dL (8.4-10.2); Carbon Dioxide 29 mmol/L (22-29); Chloride 104 mmol/L (96-108); Estimated Glomerular Filt Rate > 60; Potassium 4.5 mmol/L (3.3-5.1); Sodium 143 mmol/L (135-145); Total Protein 8.0 g/dL (6.5-8.0)
== END 2025-07-02 07:23 | disposition home or self-care (01) ==
LOC: HO.HMGCLDS 07:22
PROVIDERS: PCP Internal Medicine; Visit Provider Internal Medicine
DX: R10.32 Left lower quadrant pain (principal)
CPT/HCPCS: 36415; 80053; 81001; 85025; 87086

== ENCOUNTER 2025-08-19 10:15 | Outpatient (REF) | payer MEDICARE, OTHER, SELFPAY ==
[2025-08-19 15:37] LABS: Chlamydia pneumoniae PCR Not Detected (Not Detect.); Coronavirus 229E PCR Not Detected (Not Detect.); Coronavirus HKU1 PCR Not Detected (Not Detect.); Coronavirus NL63 PCR Not Detected (Not Detect.); Coronavirus OC43 PCR Not Detected (Not Detect.); RSV PCR Not Detected (Not Detect.); Rhino/Enterovirus PCR Not Detected (Not Detect.)
[2025-08-19 15:40] LABS: Influenza A H1 PCR Not Detected (Not Detect.); Influenza A H1-2009 PCR Not Detected (Not Detect.); Influenza A H3 PCR Not Detected (Not Detect.); SARS-CoV-2 PCR Not Detected (Not Detect.)
== END 2025-08-19 10:16 | disposition home or self-care (01) ==
LOC: HO.LAB 10:15
PROVIDERS: Physician Assistant; PCP Internal Medicine
DX: J06.9 Acute upper respiratory infection, unspecified (principal); H66.91 Otitis media, unspecified, right ear
CPT/HCPCS: 87633; 99212

== ENCOUNTER 2025-08-19 10:15 | Outpatient (AMB) | payer MEDICARE, OTHER, SELFPAY ==
--- NOTE | 2025-08-19 11:04 | MHC.OFFWIV ---
Intake Vital Signs 08/19/25 11:05 Height 5 ft 6 in Weight 228 lb BMI 36.8 BP 124/62 Blood Pressure Location Lt brachial Position Sitting Respiration 17 Pulse 90 Pulse Source Pulse Oximeter Temp 98.5 F Temp Source Oral Pulse Oximetry (%) 96 Oxygen Delivery Method Room Air Intake Visit Reasons: ep cogestion and fever and cough Intake Note: Pt is here today c/o chest congestion,fever and a cough x1week Patient Tobacco Use Status: Former Tobacco user Allergies rofecoxib (From VIOXX) Allergy (Severe, Verified 08/19/25 11:09) ANAPHYLAXIS latex (LATEX) Allergy (Mild, Verified 08/19/25 11:09) RASH;ITCHING acetaminophen (Tylenol-Codeine) Allergy (Unknown, Verified 08/19/25 11:09) hives codeine (Tylenol-Codeine) Allergy (Unknown, Verified 08/19/25 11:09) hives ciprofloxacin (From Cipro) Adverse Reaction (Intermediate, Verified 08/19/25 11:09) diarrhea cyclobenzaprine (From FLEXERIL) Adverse Reaction (Intermediate, Verified 08/19/25 11:09) TACYCARDIA lisinopril Adverse Reaction (Intermediate, Verified 08/19/25 11:09) cough atorvastatin Adverse Reaction (Unknown, Verified 08/19/25 11:09) body aches prednisone Adverse Reaction (Unknown, Verified 08/19/25 11:09) shaking aerosol Allergy (Unknown, Uncoded 08/19/25 11:09) Sneezing, difficulty breathing Vicodin Allergy (Unknown, Uncoded 08/19/25 11:09) heart racing HPI HPI Comments History of Present Illness Details History - The patient is a 69-year-old female presenting with symptoms of cough, congestion, and ear pain. - Reports productive cough with green sputum and fever with tmax 100.5?F. - Experiences intermittent shortness of breath and palpitations. - Denies history of COPD, asthma, or smoking. - Reports sinus pain and right earache, with a history of ear infections. - Has been using OTC cough drops without relief. Physical Exam General: Cooperative, healthy appearing, comfortable and no acute distress Orientation/consciousness: Patient oriented x3 Limitations: No limitations Head: Normal to inspection Ears: Hearing grossly normal bilaterally, external ears normal and TM's normal on the left, right TM with effusion, loss of landmarks and bulging. Nose: Normal external nose present, Normal nares present and No nasal discharge present Face and sinus: Normal facial exam and Yes sinuses nontender Mouth: Normal oral and palatal mucosa present and moist mucous membranes Throat: Yes tonsils normal, Yes uvula midline. Posterior oropharynx erythema, no exudates Eyes: Appearance normal, both eyes and all related structures Neck: Normal visual inspection, full ROM Respiratory: Clear to auscultation bilaterally. Normal respiratory effort, able to speak in complete sentences, Actively coughing, no respiratory distress, not tachypneic, no tripod positioning and no use of accessory muscles Cardiovascular: Regular rate and rhythm. Normal S1 and S2 Skin: No rashes or lesions noted Neuro: Patient oriented x3 Extremities: Normal to inspection and Yes no clubbing, cyanosis or edema Review of Systems - General: Reports fever up to 100.5?F. - Respiratory: Reports cough with green sputum, intermittent dyspnea. - Cardiovascular: Reports palpitations. - ENT: Reports sinus pain and right earache. - Denies: COPD, asthma, smoking. All systems reviewed and are unremarkable except as noted in HPI [facility] Medical History (Updated 08/19/25 @ 11:31 by Neeta James PA-C) Nasal congestion Ear pain Otitis media Onychomycosis Medicare annual wellness visit, initial Fracture of phalanx of index finger Adjustment disorder Impaired glucose tolerance Vitamin D deficiency Hypertension Asthma Obesity (BMI 30-39.9) SCRUGGS (nonalcoholic steatohepatitis) Hypercholesterolemia Hx of diverticulitis of colon Fatty liver Hyperlipidemia Psoriasis Hypothyroidism Trigger finger Surgical History History of esophagogastroduodenoscopy (EGD) History of colonoscopy H/O arthroscopy of right knee Tear of meniscus of left knee H/O knee surgery H/O rhinoplasty Hx of tubal ligation History of appendectomy Family History Father Kidney failure Mother Bladder cancer Social History Housing: House Alcohol intake: never Patient Tobacco Use Status: Former Tobacco user Tobacco use type: Cigarette Years Smoked: quit 1991 e-Cigarette/Vaping Use: Never Used Second Hand Smoke Exposure: No service: No Current occupational status: retired Cognitive needs: No Hearing needs: No Vision needs: Yes Female Reproductive History Menstrual Age of Menarche: 12 Physical Exam Vital Signs: Last Vital Signs Temp 98.5 F 08/19/25 11:05 Pulse 90 08/19/25 11:05 Resp 17 08/19/25 11:05 BP 124/62 08/19/25 11:05 Pulse Ox 96 08/19/25 11:05 Oxygen Delivery Method Room Air 08/19/25 11:05 BMI result Body Mass Index 36.8 Assessment & Plan Assessment & Plan (1) URI, acute: Code(s): J06.9 - Acute upper respiratory infection, unspecified Plan: Plan Patient was informed and verbally consented to the use of an ambient scribe for clinic note documentation during this visit. - VSS, pt well appearing and PE remarkable for right OM. - Sent viral panel - Prescribed amoxicillin for 7 days, twice daily. - Advised to monitor symptoms and follow up if no improvement. - Recommended decongestant and antihistamine (Krys D or Mucinex). - Prescribed cough suppressant, Tesselon Pearles, for nighttime use, can use every 8 hours if needed. - Prescribed albuterol inhaler as needed for dyspnea. (2) Right acute otitis media: Code(s): H66.91 - Otitis media, unspecified, right ear Plan: as above Orders: Orders Resp Pathogen Panel - [facility] Today J06.9 - Acute upper respiratory infection, unspecified Medications: New amoxicillin 875 mg PO Q12H 14 tabs 0RF benzonatate 200 mg PO BEDTIME PRN 10 caps 0RF cough albuterol sulfate 90 mcg/actuation 2 puffs inhalation Q6H PRN 8.5 grams 0RF shortness of breath or wheezing or cough Coding Level of Care Code Est Pt Level 4 (99326) Diagnoses URI, acute J06.9 Right acute otitis media H66.91
[2025-08-19 11:05] VITALS: BP 124/62; PULSE 90; RESP 17; TEMP 36.9; O2SAT 96; BMI 36.8
--- OUTSIDE RECORDS SUMMARY | 2025-08-19 12:12 | XMS_ITS | Clinical Summary ---
Author Organization [facility] Address [address] [place] [address] Care Team Providers Care Automation Specialist Name Role Phone Ed Macedo MD Primary Care Provider [phone] Allergies No known active allergies Medications Medication [...] age to complete this topic Care Teams Automation Specialist Relationship Specialty Start Date End Date Ed Macedo MD [address] [place] [address] Dr [address] [facility] [place] [address] PCP - General Internal Medicine 03/02/21
== END 2025-08-19 11:42 | disposition home or self-care (01) ==
PROVIDERS: PCP Internal Medicine; Visit Provider Physician Assistant
DX: J06.9 Acute upper respiratory infection, unspecified (principal); H66.91 Otitis media, unspecified, right ear

== ENCOUNTER 2025-08-28 07:15 | Outpatient (REF) | payer MEDICARE, OTHER, SELFPAY ==
--- OUTSIDE RECORDS SUMMARY | 2025-08-28 07:18 | XMS_ITS | Data Portability ---
Author Organization [place] [facility] Madhav Mendoza AONE [place] Address [address] [place] [address] Care Team Providers Care Shuttle Inspector Name Role Phone RIAZ LEÓN Primary Care Provider Assessment Encounter Date Assessment [...] findings at length with the patient today. We discussed the nature and etiology of this problem along with current treatment options. We discussed the expected course and outcomes and what to expect. We also discussed risks and benefits. All of their questions were answered today, and there was exhibited understanding and comprehension of all that was discussed. Time Spent: 10 minutes were spent reviewing previous imaging and charting. 10 minutes were spent obtaining patient history. 5 minutes were spent on physical exam. 5minutes were spent explaining diagnosis and assessment. Today's [...] 40 mg/mL suspension for injection 2022 023 [facility]/Pharmacy #[id number], [address] [place], [address], 3 11:39:36 lidocaine (PF) 10 mg/mL (1 %) injection solution 2022 023 [facility] #[id number], [address] [place], [address], 3 11:39:36 Patient TargetsNo targets recorded. Patient [...] hours following the injection. This is called aldo nowak . To help minimize the chances of [...] Name and Address Organization Details Recorded Time Surgical follow-up 292908775 Active 2020 [facility] 00:[facility]:22 Osteoarthr itis of right knee joint 847263378684 100 Active 2022 TALON COX PA-C [address] [facility],[address], [place], [address] , [place] [facility], P 3 11:38:48 Problem Notes None recorded. Procedures Surgical History Date Name Laterality Status Provider Name and Address Organization Details Recorded Time 06/06/2023 Knee Joint/Burs a Asp & Inj completed TALON COX PA-C [address], [place], [address], [place] - [facility], P 06/06/2023 07:51:46 Imaging Results None recorded. Procedure Notes None recorded. Medical Equipment None Reported. Allergies Allergen ID Allergen Name Allergen Category Reaction Reaction Severity Criticality Documentation Date Start Date Code Code System Note Provider Name and Address Organization Details Recorded Time 6505 Latex (substanc e) environme nt,medica tion Not available Not available Not available 06/06/2023 [address] [facility] [place] [facility], [facility] 3 14:20:41 6573 codeine medicatio n Not available Not available Not available 06/08/2023 2670 RxNorm [facility], [facility] [place], P 3 10:17:01 Medications Name Sig Start Date Stop Date Status Note LastModified by Organization Details LastModified Time silver sulfadiazin e 1 % topical cream APPLY SMALL AMOUNT TO THE WOUND ONCE DAILY BEFORE DRESSING WITH BANDAID active Not Available Not Available No t Available loperamide 2 mg capsule 10/14/ 2021 active Not Available Not Available Not Avai lable metronidazo le 500 mg tablet 2020 active Not Available Not Available Not Avai lable fexofenadin e 180 mg tablet TAKE 1 TABLET (ORAL) 1 TIME PER DAY FOR ITCHING OR ALLERGY SYMPTOMS 06/06 completed Not Available Not Available Not Available ciprofloxac in 500 mg tablet 2020 active Not Available Not Available Not Avai lable Kenalog 40 mg/mL suspension for injection Take 1.5 mL by injection route. 2022 active Not Available Not Available Not Avai lable erythromyci n 5 mg/gram (0.5 %) eye ointment APPLY 1 APPLICATI ON (OPHTHALM IC (EYE)) 4 TIMES PER DAY FOR 7 DAYS 1CM RIBBON TO CONJUNTIV AL SAC 06/06 completed Not Available Not Available Not Available methylpredn isolone acetate 40 mg/mL suspension for injection 10/05 completed Not Available Not Available Not Available [...] Updated DateTime 06/06/2023 167.64 cm 37.4 kg/m2 866058.43 g Hawa Galarza [facility], 06/06/2023 14:22:16 Social History Question Answer Notes LastModified by Mindie Details LastModified Time Tobacco Smoking Status Former Smoker Hawa Galarza [facility], [facility] 06/06/2023 14:23:26 When Did You Quit Smoking? 16+yearssinc elastcigaret te Information not available 06/06/2023 Sex: Unknown Functional Status Question Answer Note LastModified by Mindie Details LastModified Time Do you use any illicit or recreational drugs? No Information not available 06/06/2023 Do you or have you ever used any other forms of tobacco or nicotine? No Information not available 06/06/2023 What is your level of alcohol consumption? None Information not available 06/06/2023 Mental Status None recorded. Family History Relationship [...] Diagnosis SNOMED-CT Code Diagnosis ICD10 Code Diagnosis IMO Codes Diagnosis Note COLUMBA MENARD [facility] 299 [facility] [address] [place] [address] 06/06/2023 11:01:40 06/06/2023 11:38:41 Osteoarthritis of right knee joint 6459940838 80500 M17.11 Health Concerns Section Related Observation LastModified by Organization Detai ls LastModified Time None Recorded Concern Status LastModified by Organization Details LastModified Time None Recorded Advance Directives Directive None Recorded Payers Insurance Date Sequence Insurance Name Policy Number Policy Sanders Covered Member ID Sanders Member ID Guarantor Name 06/12/2023 1 MEDICARE B-[place]: [employer] Tati M Billy [id number] Tati Cervantes 06/12/[address] [place] [address] [id number] Tati Billy [id number] Tati Billy Notes Date Note Type Note Provider Name and Address Organization Details Recorded Time 06/06/2023 text/html R knee. cortisone 10/04/22 by VIKASH This is a pleasant 67-year-old female with a history of bilateral knee arthritis. She has been more symptomatic on the right knee at today's visit. She describes her pain is medial nature gets worse with walking and bending. She denies fevers, chills, flulike symptoms or warmth or swelling of the right knee joint here for evaluation treatment. TALON COX PA-C [address] [facility] [address], [place], [address], [place] [facility], [facility] 06/06/2023 11:39:57 OBGyn Episode No OBEpisode recorded.
--- OUTSIDE RECORDS SUMMARY | 2025-08-28 07:18 | XMS_ITS | Clinical Summary ---
Author Organization [facility] Address [address] [place] [address] Care Team Providers Care Marbleizer Name Role Phone Ed Macedo MD Primary Care Provider [phone] Allergies No known active allergies Medications Medication [...] age to complete this topic Care Teams Marbleizer Relationship Specialty Start Date End Date Ed Macedo MD [address] [place] [address] Dr [address] [facility] [place] [address] PCP - General Internal Medicine 03/02/21
[2025-08-28 10:37] LABS: Appearance Urine Clear; Glucose Urine UA Negative (Negative); PH 7.0 (5.0-9.0); Specific Gravity - Urine 1.015 (1.005-1.025); UMIC TRIGGER UACC YES
[2025-08-28 11:26] LABS: Blood Urea Nitrogen 14 mg/dL (9-16); Estimated Glomerular Filt Rate > 60
== END 2025-08-28 07:16 | disposition home or self-care (01) ==
LOC: HO.HMGCLDS 07:15
PROVIDERS: PCP Internal Medicine; Visit Provider Internal Medicine
DX: R10.32 Left lower quadrant pain (principal)
CPT/HCPCS: 36415; 81001; 82565; 84520

== ENCOUNTER 2025-09-02 14:46 | Outpatient (REF) | payer MEDICARE, OTHER, SELFPAY ==
--- OUTSIDE RECORDS SUMMARY | 2025-09-02 19:50 | XMS_ITS | Data Portability ---
Author Organization [place] [facility] Madhav Mendoza AONE [place] Address [address] [place] [address] Care Team Providers Care Associate Spa Director Name Role Phone RIAZ LEÓN Primary Care Provider [phone] Assessment Encounter Date Assessment Date Assessment LastModified [...] 40 mg/mL suspension for injection 2022 023 [facility]acy #[id number], [address] [place], [address], 3 11:39:36 lidocaine (PF) 10 mg/mL (1 %) injection solution 2022 023 [facility]acy #[id number], [address] [place], [address], 3 11:39:36 Patient TargetsNo targets recorded. Patient [...] Address Organization Details Recorded Time Surgical follow-up 003401778 Active 2020 Postop check Not Available [facility] 5 00:37:22 Osteoarthr itis of right knee joint 227854448316 100 Active 2022 TALON COX PA-C [address] [facility],[address], [place], [address] , [place] [facility] [place], [facility] 3 11:38:48 Problem Notes None recorded. Procedures Surgical History Date Name Laterality Status Provider Name and Address Organization Details Recorded Time 06/06/2023 Knee Joint/Burs a Asp & Inj completed TALON COX PA-C [address], [place], [address], [place] [facility], [facility] 06/06/2023 07:51:46 Imaging Results None recorded. Procedure Notes None recorded. Medical Equipment None Reported. Allergies Allergen ID Allergen Name Allergen Category Reaction Reaction Severity Criticality Documentation Date Start Date Code Code System Note Provider Name and Address Organization Details Recorded Time 6505 Latex (substanc e) environme nt,medica tion Not available Not available Not available 06/06/2023 56973 8007 SNOMED [facility] [place] [facility] [place], [facility] 3 14:20:41 6573 codeine medicatio n Not available Not available Not available 06/08/2023 2670 RxNorm [facility], [facility] [place], [facility] 3 10:17:01 Medications Name Sig Start [...] Updated DateTime 06/06/2023 167.64 cm 37.4 kg/m2 804127.43 g Hawa Galarza [facility] [place], 06/06/2023 14:22:16 Social History Question Answer Notes LastModified by Friendly Wager App Details LastModified Time Tobacco Smoking Status Former Smoker Hawa Galarza [facility], [facility] 06/06/2023 14:23:26 When Did You Quit Smoking? 16+yearssinc elastcigaret te Information not available 06/06/2023 Sex: Unknown Functional Status Question Answer Note LastModified by Friendly Wager App Details LastModified Time Do you use any [...] Diagnosis IMO Codes Diagnosis Note COLUMBA MENARD [facility] 299 [facility] [address] [place] [address] 06/06/2023 11:01:40 06/06/2023 11:38:41 Osteoarthritis of right knee joint [id number] 03228 M17.11 Health Concerns Section Related Observation LastModified by Organization Detai ls LastModified Time None Recorded Concern Status LastModified by Organization Details LastModified Time None Recorded Advance Directives Directive None Recorded Payers Insurance Date Sequence Insurance Name Policy Number Policy Sanders Covered Member ID Sanders Member ID Guarantor Name 06/12/2023 1 [place] [employer] Tati M Billy [id number] Tati Cervantes 06/12/[address] [place] [address] [id number] 1 Tati Billy [id number] Tati Billy Notes Date Note Type Note [...] for evaluation treatment. TALON COX PA-C [address] [facility] [address], [place], [address], [place] [facility], P 06/06/2023 11:39:57 OBGyn Episode No OBEpisode recorded.
--- OUTSIDE RECORDS SUMMARY | 2025-09-02 19:50 | XMS_ITS | Data Portability ---
Author Organization [place] [facility], Allergy Address [address] [address] Assessment Encounter Date Assessment Date Assessment LastModified [...] Time Sensorineural hearing loss of bilateral ears 909589803 Active 2023 ROSA HERRERA , FÉLIX [address], [address], [place] - [facility] 10:28:18 Problem Notes None recorded. Procedures Surgical History Date Name Laterality Status Provider Name and Address Organization Details Recorded Time 10/14/2024 Comp Audio with Tymps - 80716 & 60322 completed ROSA HERRERA, AUD [address] [facility],[address] [address], [place], [address], [place] - [facility] 10/14/2024 10:28:13 Imaging Results None recorded. [...] Updated DateTime 10/14/2024 167.64 cm 37.4 kg/m2 884194.43 g Viola Cervantes [place] - [facility] 10/14/2024 10:34:47 Social History None recorded. [...] ICD10 Code Diagnosis IMO Codes Diagnosis Note [id number] TYRONE LEVY MD [facility] [address] [address] 10/14/2024 09:59:08 10/14/2024 10:48:17 Sensorineural hearing loss of bilateral ears 418088727 H90.3 Audiologic al evaluation results: Right ear: Normal sloping to a mild sensorineu ral hearing loss with excellent word recognitio n. Left ear: Normal sloping to a mild sensorineu ral hearing loss with excellent word recognitio n. Tympanomet ry: Right Ear:Type A Left Ear:Type A 03402 FÉLIX SANTA [facility] [address] [address] 10/14/2024 09:59:08 10/14/2024 10:48:17 Sensorineural hearing loss of bilateral ears 480387786 H90.3 Audiologic al evaluation results: Right ear: Normal sloping to a mild sensorineu ral hearing loss with excellent word recognitio n. Left ear: Normal sloping to a mild sensorineu ral hearing loss with excellent word recognitio n. Tympanomet ry: Right Ear:Type A Left Ear:Type A Health Concerns Section Related Observation LastModified by Organization Detai ls LastModified Time None Recorded Concern Status LastModified by Organization Details LastModified Time None Recorded Advance Directives Directive None Recorded Payers Insurance Date Sequence Insurance Name Policy Number Policy Sanders Covered Member ID Sanders Member ID Guarantor Name 02/24/2025 2 [facility] [id number] 1 Tati Cervantes [id number] Tati Cervantes 02/24/2025 1 MEDICARE B-[place]: [employer] Tati Cervantes [id number] Tati Cervantes Notes Date Note Type Note Provider Name and Address Organization Details Recorded Time 10/14/2024 text/html ROS as noted in the HPI 69 yo F presents for hearing loss. Had previously lost hearing on the right ear for about 3 months. Went to see an ENT doctor for ear pain, ear was poked, pain better, but had some loss. Then went to [facility] who recommended seeing an ENT in [place]. Does have some tinnitus. At times gets some pain. Some allergies. Uses Navage. No nasal steroids. Has taken zyrtec. Had tube placed on the right years ago. TYRONE LEVY MD [address] [place] [address], [place], [address], [facility] - [facility] 10/20/2024 13:29:39 OBGyn Episode No OBEpisode recorded.
--- OUTSIDE RECORDS SUMMARY | 2025-09-02 19:50 | XMS_ITS | Clinical Summary ---
Author Organization [facility] Address [address] [place] [address] Care Team Providers Care Dispatcher Automobile Rental Name Role Phone Ed Macedo MD Primary Care Provider [phone] Allergies No known active allergies Medications Medication [...] age to complete this topic Care Teams Dispatcher Automobile Rental Relationship Specialty Start Date End Date Ed Macedo MD [address] [place] [address] Dr [address] [facility] [place] [address] PCP - General Internal Medicine 03/02/21
== END 2025-09-02 14:47 | disposition home or self-care (01) ==
LOC: HO.CT 14:46
PROVIDERS: PCP Internal Medicine; Visit Provider Internal Medicine
DX: Z13.89 Encounter for screening for other disorder (principal)

== ENCOUNTER 2025-09-18 12:20 | Outpatient (REF) | payer MEDICARE, OTHER, SELFPAY ==
--- NOTE | ~2025-09-18 | CT_ITS ---
EXAMINATION: CT ABDOMEN PELVIS WITH IV CONTRAST HISTORY: R10.32 - Left lower quadrant pain COMPARISON: Comparison is made with the prior examination dated 322. TECHNIQUE: CT scan of the abdomen and pelvis was performed following administration of 85 mL Omnipaque 350 using standard departmental protocol. Coronal and sagittal reformatted images were generated and reviewed. Oral contrast material was not administered at the request of the referring physician. This CT exam was performed with one or more of the following dose reduction techniques: automated exposure control, adjustment of the mA and/or kV according to patient size, use of iterative reconstruction technique. DLP: 630 mGy-cm FINDINGS: LOWER CHEST: The visualized lung bases are clear. There is no pleural effusion. CARDIOVASCULATURE: The heart is normal in size. There is no pericardial effusion. LIVER: The liver is enlarged and demonstrates diffusely decreased attenuation, consistent with steatosis. No liver mass is identified. The hepatic and portal veins are patent. GALLBLADDER / BILE DUCTS: The gallbladder is unremarkable. There is no intra or extrahepatic biliary ductal dilatation. SPLEEN: The spleen is normal in size. No focal splenic lesion is identified. PANCREAS: The pancreas is unremarkable in appearance. ADRENAL GLANDS: Within normal limits. KIDNEYS/RETROPERITONEUM: No renal calculi are identified. There is no hydronephrosis. No renal masses are identified. LYMPH NODES: No abdominal or pelvic lymphadenopathy. VASCULATURE: The abdominal aorta is normal in caliber. MESENTERY/PERITONEUM: No free fluid. No masses. There is no free intraperitoneal gas. STOMACH: The stomach is collapsed, limiting evaluation. SMALL BOWEL: The small bowel is normal in caliber. COLON: There is diverticulosis of the sigmoid colon, without evidence of diverticulitis. APPENDIX: Normal. URINARY BLADDER/PELVIC ORGANS: The urinary bladder is collapsed, limiting evaluation. The uterus and ovaries are unremarkable. There are dilated gonadal vessels in the right adnexa. BONES / SOFT TISSUES: No suspicious bony or soft tissue abnormalities. CT/CT abdomen pelvis w IV con IMPRESSION: 1. Sigmoid diverticulosis without evidence of diverticulitis. 2. Hepatomegaly and hepatic steatosis. Electronically signed by: Jose Bearden MD 09/18/2025 03:33 PM [facility]
--- OUTSIDE RECORDS SUMMARY | 2025-09-18 15:16 | XMS_ITS | Clinical Summary ---
Author Organization [facility] Address [address] [place] [address] Care Team Providers Care Felting Machine Operator Name Role Phone Ed Macedo MD Primary Care Provider [phone] Allergies No known active allergies Medications Medication [...] age to complete this topic Care Teams Felting Machine Operator Relationship Specialty Start Date End Date Ed Macedo MD [address] [place] [address] Dr [address] [facility] [place] [address] PCP - General Internal Medicine 03/02/21
--- OUTSIDE RECORDS SUMMARY | 2025-09-18 15:16 | XMS_ITS | Data Portability ---
Author Organization [place] [facility] Madhav Mendoza AONE [place] Address [address] [place] [address] Care Team Providers Care Glass Crusher Name Role Phone RIAZ LEÓN Primary Care [...] 40 mg/mL suspension for injection 2022 023 [facility]/Pharmacy #[id number], [address] [place], [address], 3 11:39:36 lidocaine (PF) 10 mg/mL (1 %) injection solution 2022 023 [facility]/Pharmacy #[id number], [address] [place], [address], 3 11:39:36 Patient TargetsNo targets recorded. Patient [...] Address Organization Details Recorded Time Surgical follow-up 219180708 Active 2020 [facility] Not [facility] 5 00:37:22 Osteoarthr itis of right knee joint 672504118121 100 Active 2022 TALON COX PA-C [address] [facility],[address], [place], [address] , [place] [facility] [place], [facility] 3 11:38:48 Problem Notes None recorded. Procedures Surgical History Date Name Laterality Status Provider Name and Address Organization Details Recorded Time 06/06/2023 Knee Joint/Burs a Asp & Inj completed TALON COX PA-C [address], [place], [address], [place] [facility], [facility] 06/06/2023 07:51:46 Imaging Results None recorded. Procedure Notes None recorded. Medical Equipment None Reported. Allergies Allergen ID Allergen Name Allergen Category Reaction Reaction Severity Criticality Documentation Date Start Date Code Code System Note Provider Name and Address Organization Details Recorded Time 6505 Latex (substanc e) environme nt,medica tion Not available Not available Not available 06/06/2023 15749 8007 SNOMED [facility] [place] [facility] [place], P 3 14:20:41 6573 codeine medicatio n Not available Not available Not available 06/08/2023 2670 RxNorm [facility], [facility] [place], P 3 10:17:01 Medications Name Sig Start [...] Updated DateTime 06/06/2023 167.64 cm 37.4 kg/m2 108999.43 g Hawa Galarza [facility] [place], 06/06/2023 14:22:16 Social History Question Answer Notes LastModified by [employer] Details LastModified Time Tobacco Smoking Status Former Smoker Hawa Galarza [facility], [facility] 06/06/2023 14:23:26 When Did You Quit Smoking? 16+yearssinc elastcigaret te Information not available 06/06/2023 Sex: Unknown Functional Status Question Answer Note LastModified by Soteira Details LastModified Time Do you use any [...] Diagnosis IMO Codes Diagnosis Note COLUMBA MENARD [facility] 299 [facility] [address] [place] [address] 06/06/2023 11:01:40 06/06/2023 11:38:41 Osteoarthritis of right knee joint 1401003373 98967 M17.11 Health Concerns Section Related Observation LastModified by Organization Detai ls LastModified Time None Recorded Concern Status LastModified by Organization Details LastModified Time None Recorded Advance Directives Directive None Recorded Payers Insurance Date Sequence Insurance Name Policy Number Policy Sanders Covered Member ID Sanders Member ID Guarantor Name 06/12/2023 1 MEDICARE [place]: [employer] Tati M Billy [id number] Tati Cervantes 06/12/[address] [place] [address] [id number] 1 Tati Billy [id number] Tati Billy Notes Date Note Type Note [...] for evaluation treatment. TALON COX PA-C 299 [facility] [address], [place], [address], [place] [facility] [place], P 06/06/2023 11:39:57 OBGyn Episode No OBEpisode recorded.
--- OUTSIDE RECORDS SUMMARY | 2025-09-18 15:16 | XMS_ITS | Data Portability ---
Author Organization [place] [facility], Allergy Address [address] [address] Assessment Encounter Date Assessment Date Assessment LastModified [...] Time Sensorineural hearing loss of bilateral ears 550148393 Active 2023 ROSA HERRERA , FÉLIX [address], [address], [place] [facility] 10:28:18 Problem Notes None recorded. Procedures Surgical History Date Name Laterality Status Provider Name and Address Organization Details Recorded Time 10/14/2024 Comp Audio with Tymps - 20967 & 42594 completed ROSA HERRERA, AUD 100 [facility],[address] [address], [place], [address], [place] - [facility] 10/14/2024 10:28:13 Imaging Results None recorded. Procedure [...] Updated DateTime 10/14/2024 167.64 cm 37.4 kg/m2 832298.43 g Viola Cervantes [place] - [facility] [...] ICD10 Code Diagnosis IMO Codes Diagnosis Note [id number] TYRONE LEVY MD [facility] [address] [address] 10/14/2024 09:59:08 10/14/2024 10:48:17 Sensorineural hearing loss of bilateral ears 374942618 H90.3 Audiologic al evaluation results: Right ear: Normal sloping to a mild sensorineu ral hearing loss with excellent word recognitio n. Left ear: Normal sloping to a mild sensorineu ral hearing loss with excellent word recognitio n. Tympanomet ry: Right Ear:Type A Left Ear:Type A 27845 FÉLIX SANTA [facility] of [address] [address] 10/14/2024 09:59:08 10/14/2024 10:48:17 Sensorineural hearing loss of bilateral ears 760862733 H90.3 Audiologic al evaluation results: Right ear: [...] Sanders Member ID Guarantor Name 02/24/2025 2 [facility] [id number] 1 Tati Cervantes [id number] Tati Cervantes 02/24/2025 1 MEDICARE B-[place]: [employer] Tati Cervantes [id number] Tati Cervantes Notes Date Note Type Note Provider Name and Address Organization Details Recorded Time 10/14/2024 text/html ROS as noted in the HPI 69 yo F presents for hearing loss. Had previously lost hearing on the right ear for about 3 months. Went to see an ENT doctor for ear pain, ear was poked, pain better, but had some loss. Then went to [facility] who recommended seeing an ENT in [place]. Does have some tinnitus. At times gets some pain. Some allergies. Uses Navage. No nasal steroids. Has taken zyrtec. Had tube placed on the right years ago. TYRONE LEVY MD [address] [place] [address], [place], [address], [facility] - [facility] 10/20/2024 13:29:39 OBGyn Episode No OBEpisode recorded.
[2025-09-18] MEDS: Barium Sulfate Oral (Berry) 450 ML ORAL.SUSP 900 ML PO (15:25)
[2025-09-18] MEDS: iohexoL 350 MG/ML 100 ML INFUS..BTL 85 ML IV (15:25)
== END 2025-09-18 12:21 | disposition home or self-care (01) ==
LOC: HO.CT 12:20
PROVIDERS: PCP Internal Medicine; Visit Provider Internal Medicine
DX: R10.32 Left lower quadrant pain (principal)
CPT/HCPCS: 74177; Q9967

== ENCOUNTER → 2025-09-18 12:22 | Outpatient (BNV) | payer MEDICARE, OTHER, SELFPAY | PROVIDERS: PCP Internal Medicine; Visit Provider Radiology Diagnostic Radiology | DX: K57.30 Diverticulosis of large intestine without perforation or abscess without bleeding (principal); K76.0 Fatty (change of) liver, not elsewhere classified; R16.0 Hepatomegaly, not elsewhere classified | CPT/HCPCS: 74177 ==

== ENCOUNTER 2025-10-08 10:28 | Outpatient (AMB) | payer MEDICARE, OTHER, SELFPAY ==
[2025-10-08 10:34] VITALS: BP 144/82; PULSE 82; O2SAT 98; BMI 36.6
--- NOTE | 2025-10-08 10:34 | A.OFFVIS_ITS ---
Intake Vital Signs 10/08/25 10:34 Height 5 ft 6 in Weight 227 lb BMI 36.6 BP 144/82 H Blood Pressure Location Lt brachial Position Sitting Pulse 82 Pulse Source Pulse Oximeter Pulse Oximetry (%) 98 Oxygen Delivery Method Room Air Intake Visit Reasons: SWV [id number] Allergies rofecoxib (From VIOXX) Allergy (Severe, Verified 10/08/25 10:34) ANAPHYLAXIS latex (LATEX) Allergy (Mild, Verified 10/08/25 10:34) RASH;ITCHING acetaminophen (Tylenol-Codeine) Allergy (Unknown, Verified 10/08/25 10:34) hives codeine (Tylenol-Codeine) Allergy (Unknown, Verified 10/08/25 10:34) hives ciprofloxacin (From Cipro) Adverse Reaction (Intermediate, Verified 10/08/25 10:34) diarrhea cyclobenzaprine (From FLEXERIL) Adverse Reaction (Intermediate, Verified 10/08/25 10:34) TACYCARDIA lisinopril Adverse Reaction (Intermediate, Verified 10/08/25 10:34) cough atorvastatin Adverse Reaction (Unknown, Verified 10/08/25 10:34) body aches prednisone Adverse Reaction (Unknown, Verified 10/08/25 10:34) shaking aerosol Allergy (Unknown, Uncoded 10/08/25 10:34) Sneezing, difficulty breathing Vicodin Allergy (Unknown, Uncoded 10/08/25 10:34) heart racing Medication List - Last Reconciled 10/08/25 by Ed Macedo MD [activia yogurt PO] betamethasone, augmented 0.05 % 1 appl topical DAILY PRN calcipotriene 0.005% 1 appl topical BEDTIME ezetimibe 10 mg PO DAILY levothyroxine 150 mcg PO QAM 90 days methylcellulose (laxative) (Citrucel) 500 mg PO BID multivitamin,[id number] (Complete Multivitamin tablet) 1 tab PO DAILY HPI SWV G0439 HPI Details no other doctors and declined, R ear pain 2 months no discharge HPI Comments History of Present Illness Details History of Present Illness The patient is a 70-year-old individual presenting for an annual well visit. The patient's medical history includes obesity, hepatic steatosis, hypertension, hypercholesterolemia, generalized anxiety disorder, diverticular disease, and autoimmune gastritis. The last visit was in June 2025. Regarding health maintenance, the patient has declined a mammogram and a colonoscopy. A bone density scan performed in November 2024 was normal. The patient complains of persistent right ear pain for the last two months, which was previously associated with a fever. The patient visited an urgent care center in August 2025 for this issue with congestion and was treated with amoxicillin. The patient denies current fever, ear discharge, nausea, vomiting, or difficulty swallowing. The patient also reports experiencing chest pain daily, described as a heaviness or a sensation of the heart doing a flip, which causes shortness of breath. These episodes can occur at rest. The last stress test was a long time ago in 1999. A CT scan of the abdomen in September showed sigmoid diverticulosis without diverticulitis, hepatomegaly, and hepatic steatosis. Blood work from June 2025 showed elevated liver function tests (57 and 58), an LDL of 106, and triglycerides of 164. Complete blood count, electrolytes, renal function, blood sugar, B12, folic acid, and thyroid function were all within normal limits. Current medications include a probiotic, Zetia, levothyroxine, Citrucel, and multivitamins. The patient also has a cream for psoriasis and an inhaler which is not being used. The patient has known allergies to Vicodin, prednisone, atorvastatin, lisinopril, cyclobenzaprine, Cipro, and codeine. The patient denies alcohol use and has quit smoking. The patient denies any falls within the last six months. Health Maintenance - The patient has declined a mammogram a nd colonoscopy. - Bone density scan in November 2024 was normal. - Vaccinations: The patient declined all vaccines, including the flu shot. - Vision: Advised to see an eye doctor f or a check-up. - Lifestyle: The patient was counseled o n the importance of healthy eating, weight loss, and exercise to manage hepatic steatosis. - Blood Pressure Monitoring: Advised to check blood pressure at home due to high in-office readings and a history of white coat hypertension. - Fall Risk: The patient denies falling in the last six months. - Advance Directives: Discussed [facility] re proxy forms. Social History - Substance Use: The patient denies drin roe alcohol and reports no longer smoking cigarettes. - Level of Activity: The patient reports limited activity, such as going to the store and returning home. - Functional Status: The patient has not had any falls in the last six months. Results - Labs (June 2025): - Complete blood count was normal with n o anemia. - Comprehensive metabolic panel showed n ormal electrolytes and renal function. - Blood sugar was normal. - Liver function tests were elevated to 57 and 58. - Lipid panel showed LDL of 106 mg/dL an d triglycerides of 164 mg/dL. - B12, folic acid, and thyroid levels we re within normal limits. - Urinalysis was normal. - Imaging: - CT scan of the abdomen (September 2025) noted sigmoid diverticulosis without diverticulitis, hepatomegaly, and hepatic steatosis. - Bone density scan (November 2024) was n ormal. [facility] Medical History (Updated 10/08/25 @ 11:16 by Ed Macedo MD) Nasal congestion Ear pain Otitis media Onychomycosis Medicare annual wellness visit, initial Fracture of phalanx of index finger Adjustment disorder Impaired glucose tolerance Vitamin D deficiency Hypertension Asthma Obesity (BMI 30-39.9) SCRUGGS (nonalcoholic steatohepatitis) Hypercholesterolemia Hx of diverticulitis of colon Fatty liver Hyperlipidemia Psoriasis Hypothyroidism Trigger finger Surgical History History of esophagogastroduodenoscopy (EGD) History of colonoscopy H/O arthroscopy of right knee Tear of meniscus of left knee H/O knee surgery H/O rhinoplasty Hx of tubal ligation History of appendectomy Family History Father Kidney failure Mother Bladder cancer Social History Housing: House Alcohol intake: never Patient Tobacco Use Status: Former Tobacco user Tobacco use type: Cigarette Years Smoked: quit 1991 e-Cigarette/Vaping Use: Never Used Second Hand Smoke Exposure: No service: No Current occupational status: retired Cognitive needs: No Hearing needs: No Vision needs: Yes Female Reproductive History Menstrual Age of Menarche: 12 Questionnaire Medicare Wellness Checkup [age] What gender do you identify with?: female During the past 4 weeks, how much have you been bothered by emotional problems such as feeling anxious, depressed, irritable, sad or downhearted, and blue?: slightly During the past 4 weeks, has your physical & emotional health limited your social activities with family, friends, neighbors, or groups?: moderately During the past 4 weeks, how much bodily pain have you generally had?: moderate pain During the past 4 weeks, was someone available to help you if you needed & wanted help?: no, not at all During the past 4 weeks, what was the hardest physical activity you could do for at least 2 minutes?: light Can you get to places out of walking distance without help? (For eg., can you travel alone on buses, taxis or drive your car?): Yes Can you go shopping for groceries or clothes without someone's help?: Yes Can you prepare your own meals?: Yes Can you do your housework without help?: Yes Because of any health problems, do you need the help of another person with your personal care needs such as eating, bathing, dressing or getting around the house?: No Can you handle your own money without help?: Yes During the past 4 weeks, how would you rate your health in general?: fair During the past 4 weeks how have things been going for you?: good & bad parts about equal Are you having difficulties driving your car?: no Do you always fasten your seat belt when you are in a car?: yes, usually During past 4 weeks, have you been bothered by the following: never: Falling or dizzy when standing up, Sexual problems?, Trouble eating well?, Teeth or denture problems? and Problems using the telephone? and sometimes: Tiredness or fatigue? Have you fallen 2 or more times in the past year?: No Are you afraid of falling?: Yes Are you a smoker?: no During the past 4 weeks, how many drinks of wine, beer, or other alcoholic beverages did you have?: no alcohol at all Do you exercise for about 20 minutes 3 or more times a week?: yes, some of the time Have you been given information to help with the following?: no: Hazards in your house that might hurt you? and no: Keeping track of your medications? How often do you have trouble taking medicines the way you have been told to take them?: I always take medicine as prescribed How confident are you that you can control & manage most of your health problems?: somewhat confident What is your race?: or origin or descent PHQ-9 Over the last 2 weeks, how often have you been bothered by any of the following problems? 1. Little interest or pleasure in doing things: more than half the days 2. Feeling down, depressed, or hopeless: several days 3. Trouble falling or staying asleep, or sleeping too much: not at all 4. Feeling tired or having little energy: several days 5. Poor appetite or overeating: not at all 6. Feeling bad about yourself - or that you are a failure or have let yourself or your family down: not at all 7. Trouble concentrating on things, such as reading the newspaper or watching television: not at all 8. Moving or speaking so slowly that other people could have noticed. Or the opposite - being so fidgety or restless that you have been moving around a lot more than usual: not at all Depression Screening Interpretation: Positive Depression Screening Done: Yes Source: Developed by Drs. Jose Hendricks, Anika Bain, Beka Casas and colleagues, with an educational walt from [employer]. Review of Systems Narrative Review of Systems - General: Reports a prior fever but denies current fever. Denies falls. - HEENT: Reports right ear pain for two months. Denies ear discharge. Hearing is reported as not that bad. Reports needing glasses to read. Denies problems with swallowing. - Cardiovascular: Reports daily chest pain described as heaviness and a heart flip sensation. Denies orthopnea. - Respiratory: Reports getting out of breath associated with chest sensations and sometimes wakes up short of breath. - Gastrointestinal: Denies nausea and vomiting. Reports occasional constipation, which is currently better. Denies blood in stool. - Genitourinary: Reports waking up twice at night to urinate. Denies other urinary problems. - Musculoskeletal: Reports right shoulder pain radiating to the neck and knee pain. Const Denies poor appetite and Denies weakness Eyes Denies no additional complaints ENT Reports Normal hearing present, Denies dizziness, Denies nasal congestion, Denies tinnitus and Denies sore throat Card Denies chest pain, Denies syncope, Denies rapid heart rate and Denies dyspnea Resp Denies cough and Denies dyspnea GI Denies change in stool character, Reports constipation, Denies diarrhea, Denies nausea and Denies vomiting Denies urinary frequency, Denies difficulty voiding and Denies dysuria Neuro Reports Normal hearing present, Denies confusion, Denies dizziness, Denies syncope and Denies weakness Psych Denies confusion Physical Exam Exam Exam: Physical Exam General: Cooperative, healthy appearing, comfortable, no acute distress and well developed Orientation: Patient oriented x3 Limitations: No limitations Head: Normal to inspection Ears: Right ear pain, small red ulceration, infected, prescribed ear drops and antibiotics Nose: Normal external nose present Face and sinus: Normal facial exam Eyes: Appearance normal, both eyes and all related structures Neck: Normal visual inspection and Yes full ROM Respiratory: Normal respiratory effort and able to speak in complete sentences. Clear to auscultation bilaterally Cardiovascular: Regular rate and rhythm. Normal S1 and S2 GI: Normal to inspection. Soft to palpation and nontender Skin: No rashes or lesions noted Neuro: Patient oriented x3 Extremities: Normal to inspection, right shoulder sore, knee pain noted Vital Signs: Last Vital Signs Pulse 82 10/08/25 10:34 BP 144/82 H 10/08/25 10:34 Pulse Ox 98 10/08/25 10:34 Oxygen Delivery Method Room Air 10/08/25 10:34 BMI result Body Mass Index 36.6 Const General: No confusion Orientation/consciousness: No confusion HEENT Head: Yes normocephalic Ears: external ears normal and TM's normal bilaterally Face and sinus: Yes normal facial exam Mouth: moist mucous membranes Throat: Yes tonsils normal Eyes Conjunctivae: conjunctivae normal Pupils: Equal, round and reactive pupils present and Pupil accommodation reflex normal Direct Ophthalmoscopy: normal light reflex Neck Neck: No lymphadenopathy Thyroid: Thyroid normal Chest Chest palpation & inspection: normal inspection of the chest Resp Effort & Inspection: normal respiratory effort and no audible wheezes Auscultation: clear to auscultation bilaterally, no crackles, no wheezes and lung sounds not diminished Cardio Rate: regular rate Rhythm: regular rhythm Peripheral pulses: radial pulses present and dorsalis pedis present GI Palpation (GI): no masses Auscultation: normal bowel sounds and normoactive bowel sounds Rectal Exam - Female: deferred Skin General skin exam: no rashes or lesions noted Rashes: no rashes Neuro General: No confusion Cranial nerves: Yes Equal, round and reactive pupils present and Yes Normal hearing present Cognition (Neuro): normal cognition Gait exam (Neuro): Normal gait present Motor exam (neuro): 5/5 motor strength present throughout Deep tendon reflexes (DTR's): Right brachioradialis reflex intensity grade: 2+, Left brachioradialis reflex intensity grade: 2+, Right patellar reflex intensity grade: 2+ and Left patellar reflex intensity grade: 2+ Extrem Other: R shoulder pain on elevating limited to 15 degrees, declined rectal exam General: No edema Assessment & Plan Assessment & Plan (1) Annual wellness visit: Code(s): Z00.00 - Encounter for general adult medical examination without abnormal findings Plan: Patient is advised to eat healthy, keep well hydrated, keep active and have adequate sleep. (2) Hypertension: Comment: Coronary angiography February 2013 unremarkable Code(s): I10 - Essential (primary) hypertension Qualifiers: Hypertension type: essential hypertension Qualified Code(s): I10 - Essential (primary) hypertension Plan: Patient is not on any medication, advised to check the BP and home (3) Hypercholesterolemia: Code(s): E78.00 - Pure hypercholesterolemia, unspecified Plan: Avoid fried foods, chicken skin, eggs, butter margarine, pastries and meat. Be it pork or beef they have a lot of cholesterol LDL goal of less than 130 and triglyceride of less than 150 (4) Impaired glucose tolerance: Code(s): R73.02 - Impaired glucose tolerance (oral) Plan: Decrease the amount of carbohydrate intake, pasta, bread, rice and potatoes are all sugar and that is aside from all the sweet stuff, remember that fruits are good but they are Sweet also. (5) Hypothyroidism: Code(s): E03.9 - Hypothyroidism, unspecified Qualifiers: Hypothyroidism type: acquired Qualified Code(s): E03.9 - Hypothyroidism, unspecified Plan: Continue with thyroid medication March 2025 last blood work (6) Obesity (BMI 30-39.9): Code(s): E66.9 - Obesity, unspecified Plan: Diet and exercise (7) Autoimmune gastritis: Code(s): K29.40 - Chronic atrophic gastritis without bleeding Plan: Avoid the foods that causes that usually spicy foods, tomato products, juices, coffee, soda and foods that your sensitive to. After eating do not lie down, allow 3-4 hours before in lie down. And keep the head of bed above 30 degrees to avoid the acid from going up. (8) SCRUGGS (nonalcoholic steatohepatitis): Code(s): K75.81 - Nonalcoholic steatohepatitis (SCRUGGS) Plan: Low-fat diet and exercise (9) Generalized anxiety disorder: Comment: decline any referral for counselling 08/2021 Code(s): F41.1 - Generalized anxiety disorder Plan: Stable (10) Chest pain: Code(s): R07.9 - Chest pain, unspecified (11) Otitis externa: Comment: Right ear Code(s): H60.90 - Unspecified otitis externa, unspecified ear (12) Right shoulder tendonitis: Code(s): M75.81 - Other shoulder lesions, right shoulder Plan Plan Patient was informed and verbally consented to the use of an ambient scribe for clinic note documentation during this visit. 1. Annual Health Examination The patient is a 70-year-old individual presenting for a wellness visit. Health maintenance was discussed, noting the patient's refusal of a mammogram and colonoscopy. Vaccinations, including the flu shot, were offered and declined. The patient was advised to schedule an appointment with an eye doctor. 2. Hypertension The patient's blood pressure was elevated in the office, but there is a known history of white coat hypertension. The patient is not currently on any medicat ion for blood pressure. The patient was instructed to monitor blood pressure at home and report the readings to determine if medication is necessary. 3. Otitis Media, Right The patient has persistent right ear pain despite a previous course of amoxicillin. Physical exam revealed an infected ear canal with a small red ulceration. An antibiotic eardrop will be prescribed, to be used as four drops three times a day, along with an oral antibiotic. 4. Chest Pain, Unspecified The patient reports daily chest pain and a sensation of the heart flipping, with the last stress test performed in 1999. A stress test and a chest x-ray will be ordered to further evaluate these symptoms. 5. Arthralgia Of Right Shoulder The patient complains of right shoulder pain radiating to the neck. A referral for physical therapy will be placed. 6. Hypercholesterolemia The patient's LDL is 106 mg/dL and triglycerides are 164 mg/dL, with goals of <130 mg/dL and <150 mg/dL, respectively. The patient will continue taking Zetia and is advised to continue with diet and exercise. 7. Hepatic Steatosis CT scan and elevated liver enzymes are consistent with fatty liver. The patient was counseled that management involves healthy eating, weight loss, and exercise to prevent progression to cirrhosis. 8. Diverticulosis Of Colon The diagnosis was confirmed by a recent CT scan, which showed no signs of acute diverticulitis. The patient reports taking Citrucel for fiber and notes improved constipation. Continue with a high-fiber diet. 9. Hypothyroidism The patient is stable on levothyroxine, with the last thyroid labs in March 2025 being normal. The patient will continue the current medication. Discussion Notes I discussed the results of the recent CT scan with the patient, explaining that it showed fatty liver and diverticulosis without inflammation. I emphasized that managing the fatty liver with a healthy diet, weight loss, and exercise is crucial to prevent progression to cirrhosis. Regarding the persistent right ear pain, I explained that the examination revealed an ongoing infection with a small ulceration, which warrants treatment with both an antibiotic eardrop and an oral antibiotic. Given the patient's report of daily chest pain and the fact that the last stress test was over two decades ago, I recommended a new stress test and a chest x-ray to rule out cardiac or pulmonary causes. For the right shoulder pain, I recommended physical therapy. We discussed the patient's high in-office blood pressure and the possibility of white coat hypertension. I stressed the importance of monitoring blood pressure at home to guide whether medication is needed. I reviewed preventative health measures, noting the patient's decision to decline mammograms, colonoscopies, and vaccinations. I also advised the patient to see an eye doctor for a vision check-up. Patient Instructions - Take the new oral antibiotic as prescribed for your ear infection. - Use the eardrops in your right ear: put four drops in, three times per day. - Schedule appointments for the chest x-ray and stress test that were ordered to check on your chest pain. - You will be contacted to schedule physical therapy for your right shoulder pain. - Check your blood pressure at home regularly and share the readings with my office. - Continue taking your current medications, including those for your thyroid (levothyroxine) and cholesterol (Zetia). - Manage your fatty liver by eating a healthy diet, exercising, and working toward weight loss. - Make an appointment with an eye doctor to have your vision checked. - Heat may help with your shoulder pain. Orders: Orders CA stress test Today R07.9 - Chest pain, unspecified PT Evaluation and Treatment Today M75.81 - Other shoulder lesions, right shoulder Medications: New uelbszbn-gtlqbyggv-YQ 3.5-10,000-1 mg/mL-unit/mL-% 4 drps otic (ear) right Q8H 10 mL 0RF 10 days H60.90 - Unspecified otitis externa, unspecified ear azithromycin (Zithromax) For 250 mg dose pack: take 500 mg today (day 1), then 250 mg for 4 days (days 2-5) PO 6 tabs 0RF H60.90 - Unspecified otitis externa, unspecified ear Coding Level of Care Code Medicare Subsequent (G0439) Diagnoses Annual wellness visit Z00.00 Essential hypertension I10 Hypertension type: essential hypertension Hypercholesterolemia E78.00 Impaired glucose tolerance R73.02 Acquired hypothyroidism E03.9 Hypothyroidism type: acquired Obesity (BMI 30-39.9) E66.9 Autoimmune gastritis K29.40 SCRUGGS (nonalcoholic steatohepatitis) K75.81 Generalized anxiety disorder F41.1 Chest pain R07.9 Otitis externa H60.90 Right shoulder tendonitis M75.81
--- OUTSIDE RECORDS SUMMARY | 2025-10-08 12:26 | XMS_ITS | Data Portability ---
Author Organization [place] [facility] Madhav Mendoza [place] Address [address] [place] [address] Care Team Providers Care Peritoneal Dialysis Registered Nurse Name Role Phone RIAZ LEÓN Primary Care [...] 40 mg/mL suspension for injection 2022 023 [facility] #[id number], [address] [place], [address], 3 11:39:36 lidocaine (PF) 10 mg/mL (1 %) injection solution 2022 023 [facility] #[id number], [address] [place], [address], 3 11:39:36 Patient TargetsNo targets recorded. Patient [...] Address Organization Details Recorded Time Surgical follow-up [id number] Active 2020 [facility] Not Available [facility] 5 00:37:22 Osteoarthr itis of right knee joint 406986915589 100 Active 2022 TALON COX PA-C [address] [facility],[address], [place], [address] , [place] [facility] 3 11:38:48 Problem Notes None recorded. Procedures Surgical History Date Name Laterality Status Provider Name and Address Organization Details Recorded Time 06/06/2023 Knee Joint/Burs a Asp & Inj completed TALON COX PA-C [address], [place], [address], [place] [facility] 06/06/2023 07:51:46 Imaging Results None recorded. Procedure Notes None recorded. Medical Equipment None Reported. Allergies Allergen ID Allergen Name Allergen Category Reaction Reaction Severity Criticality Documentation Date Start Date Code Code System Note Provider Name and Address Organization Details Recorded Time 6505 Latex (substanc e) environme nt,medica tion Not available Not available Not available 06/06/2023 26902 8007 SNOMED [facility] [place] [facility] 3 14:20:41 6573 codeine medicatio n Not available Not available Not available 06/08/2023 2670 RxNorm [facility], [facility] 3 10:17:01 Medications Name Sig Start [...] Updated DateTime 06/06/2023 167.64 cm 37.4 kg/m2 407792.43 g Hawa Galarza [facility], 06/06/2023 14:22:16 Social History Question Answer Notes LastModified by [employer] Details LastModified Time Tobacco Smoking Status Former Smoker Hawa Galarza [facility], [facility] 06/06/2023 14:23:26 When Did You Quit Smoking? 15+yearssinc elastcigaret te Information not available 06/06/2023 Sex: Unknown Functional Status Question Answer Note LastModified by [employer] Details LastModified Time Do you use any [...] Diagnosis IMO Codes Diagnosis Note COLUMBA MENARD [facility] [address] [facility] [address] [place] [address] 06/06/2023 11:01:40 06/06/2023 11:38:41 Osteoarthritis of right knee joint [id number] 47636 M17.11 Health Concerns Section Related Observation LastModified by Organization Detai ls LastModified Time None Recorded Concern Status LastModified by Organization Details LastModified Time None Recorded Advance Directives Directive None Recorded Payers Insurance Date Sequence Insurance Name Policy Number Policy Sanders Covered Member ID Sanders Member ID Guarantor Name 06/12/2023 1 MEDICARE B-[place]: [employer] Tati M Billy [id number] Tati Cervantes 06/12/[address] [place] [address] [id number] Tati Billy [id number] Tati Billy Notes Date Note Type Note [...] for evaluation treatment. TALON COX PA-C [address] [facility] [address], [place], [address], [place] [facility] 06/06/2023 11:39:57 OBGyn Episode No OBEpisode recorded.
--- OUTSIDE RECORDS SUMMARY | 2025-10-08 12:26 | XMS_ITS | Data Portability ---
Author Organization [place] [facility], Allergy Address [address] [address] Assessment Encounter Date Assessment Date Assessment LastModified [...] Time Sensorineural hearing loss of bilateral ears [id number] Active 2023 ROSA HERRERA , FÉLIX [address], [address], [place] - [facility] 10:28:18 Problem Notes None recorded. Procedures Surgical History Date Name Laterality Status Provider Name and Address Organization Details Recorded Time 10/14/2024 Comp Audio with Tymps - 79787 & 96183 completed ROSA HERRERA, AUD [address] [facility],[place] [address], [place], [address], [place] - [facility] 10/14/2024 10:28:13 Imaging Results None recorded. [...] Updated DateTime 10/14/2024 167.64 cm 37.4 kg/m2 614240.43 g Viola Cervantes [place] - [facility] 10/14/2024 10:34:47 Social History None recorded. [...] ICD10 Code Diagnosis IMO Codes Diagnosis Note [id number] TYRONE LEVY MD [facility] [address] [address] 10/14/2024 09:59:08 10/14/2024 10:48:17 Sensorineural hearing loss of bilateral ears [id number] H90.3 Audiologic al evaluation results: Right ear: Normal sloping to a mild sensorineu ral hearing loss with excellent word recognitio n. Left ear: Normal sloping to a mild sensorineu ral hearing loss with excellent word recognitio n. Tympanomet ry: Right Ear:Type A Left Ear:Type A [id number] FÉLIX SANTA [facility] [address] [address] 10/14/2024 09:59:08 10/14/2024 10:48:17 Sensorineural hearing loss of bilateral ears 810918408 H90.3 Audiologic al evaluation results: Right ear: [...] ID Guarantor Name 02/24/2025 2 [facility] [id number] 1 Tati Cervantes [id number] Tati Cervantes 02/24/2025 1 MEDICARE [place]: [employer] Tati Cervantes [id number] Tati Cervantes Notes Date Note Type Note Provider Name and Address Organization Details Recorded Time 10/14/2024 text/html ROS as noted in the HPI 69 yo F presents for hearing loss. Had previously lost hearing on the right ear for about 3 months. Went to see an ENT doctor for ear pain, ear was poked, pain better, but had some loss. Then went to [facility] who recommended seeing an ENT in [place]. Does have some tinnitus. At times gets some pain. Some allergies. Uses Navage. No nasal steroids. Has taken zyrtec. Had tube placed on the right years ago. TYRONE LEVY MD [address] [place] [address], [place], [address], [facility] - [facility] 10/20/2024 13:29:39 OBGyn Episode No OBEpisode recorded.
== END 2025-10-08 11:23 | disposition home or self-care (01) ==
LOC: HO.HMCH 10:29
PROVIDERS: PCP Internal Medicine; Visit Provider Internal Medicine
DX: Z00.00 Encounter for general adult medical examination without abnormal findings (principal); Z68.36 Body mass index [BMI] 36.0-36.9, adult; E66.9 Obesity, unspecified; I10 Essential (primary) hypertension; E78.00 Pure hypercholesterolemia, unspecified; R73.02 Impaired glucose tolerance (oral); E03.9 Hypothyroidism, unspecified; K29.40 Chronic atrophic gastritis without bleeding; K75.81 Nonalcoholic steatohepatitis (NASH); F41.1 Generalized anxiety disorder; R07.9 Chest pain, unspecified; H60.91 Unspecified otitis externa, right ear; M75.81 Other shoulder lesions, right shoulder